=== PATIENT | male | born 1970 | race Two or more races ===

== ENCOUNTER 2020-09-23 21:36 | Inpatient (IN) | payer OTHER ==
[~2020-09-23] VITALS: Ht 177.8 cm; Wt 162.3 kg
[2020-09-23] MEDS: IV NORMAL SALINE 1000ML BAG 1,000 ML IV SCH (22:18)
[2020-09-23 22:23] LABS: BASO % 1 % (0-3); EOS # 0.3 x10^3/uL (0.0-0.7); EOS % 7 % (0-3); HEMATOCRIT 45.2 % (39.0-53.0); HEMOGLOBIN 15.7 g/dL (13.0-17.5); LYMPH # 1.4 x10^3/uL (1.0-4.8); LYMPH % 28 % (24-48); MEAN CORPUSCULAR HEMOGLOBIN 32 pg (25-35); MEAN CORPUSCULAR HGB CONC 35 g/dL (31-37); MEAN CORPUSCULAR VOLUME 91 fL (79-100); MONO # 0.6 x10^3/uL (0.0-1.1); MONO % 12 % (0-9); NEUT # 2.6 x10^3/uL (1.8-7.7); NEUT % 53 % (31-73); PLATELET COUNT 88 x10^3/uL (140-400); RED BLOOD COUNT 4.96 x10^6/uL (4.30-5.70); RED CELL DISTRIBUTION WIDTH 15.3 % (11.5-14.5)
[2020-09-23] MEDS ORDERED: PANTOPRAZOLE IV PUSH 40 MG VIAL. IVP ONE (22:30)
[2020-09-23] MEDS ORDERED: MORPHINE SULFATE 4 MG/ML VIAL. IV ONE (22:30)
[2020-09-23] MEDS ORDERED: cefTRIAXone IV Push 1 GM VIAL. IVP ONE (22:30)
[2020-09-23 22:31] LABS: PROTHROMBIN TIME PATIENT 16.7 SEC (11.7-14.0)
[2020-09-23 22:36] LABS: CALCIUM 9.8 mg/dL (8.5-10.1); CREATININE 1.1 mg/dL (0.7-1.3); GFR 71.4; POTASSIUM 3.7 mmol/L (3.5-5.1)
[2020-09-23 22:42] LABS: ALBUMIN 3.6 g/dL (3.4-5.0); ALBUMIN/GLOBULIN RATIO 0.8 (1.0-1.7); DIRECT BILIRUBIN 0.4 mg/dL (0.0-0.2); TOTAL BILIRUBIN 1.7 mg/dL (0.2-1.0); TOTAL PROTEIN 8.3 g/dL (6.4-8.2)
[2020-09-23] MEDS ORDERED: CONTRAST GIVEN. MC PRN (22:45)
[2020-09-23] MEDS: OCTREOTIDE 500 MCG in IV NORMAL SALINE 100ML 100 ML IV PRN (22:47)
--- NOTE | 2020-09-23 22:48 | RAD ---
XR CHEST 1V Clinical History: Reason: CHEST PAIN / Spl. Instructions: / History: Technique: AP view of the chest was obtained at 09/23/2020 10:29 PM. Comparison: None. Findings: The cardiomediastinal silhouette is normal. The pulmonary vasculature is normal. There is low lung vo lumes causing crowding of vasculature. There is subtle reticular nodular opacities in the lungs. Impression: Subtle reticulonodular opacities could be atypical pneumonia. Electronically signed by: Emmett Hernandez III, MD (09/23/2020 10:45 PM) [facility]
[2020-09-23] MEDS ORDERED: IOHEXOL 300 MG/ML 100ML VIAL. IV ONE (23:00)
[2020-09-23] MEDS ORDERED: VANCOMYCIN 2 GM in IV NORMAL SALINE 500ML BAG 500 ML IV ONE (23:00)
--- NOTE | 2020-09-23 23:45 | RAD ---
CT chest, abdomen and pelvis with contrast: Reason for examination: Abdominal pain. History of varices. Recent surgery. Helical images were obtained through the chest, abdomen and pelvis with intravenous administration of 75 cc Omnipaque 300. Reconstruction was performed in sagittal and coronal planes. Exposure: One or more of the following individualized dose reduction techniques were utilized for thi s examination: 1. Automated exposure control 2. Adjustment of the mA and/or kV according to patient size 3. Use of iterative reconstruction technique. No abnormality seen at the thyroid gland. The trachea and mainstem bronchi show no intraluminal lesio ns. There is abnormal soft tissue thickening around the distal esophagus which may reflect esophageal varices. This appears to extend from the level of the lennox into the upper abdomen. The thoracic ao rta is normal in course and caliber with no aneurysm or dissection. The heart size is normal with no pericardial effusion. There is no evidence of pulmonary embolus. There appears to be some atelectasis or mild infiltrate posteriorly at the costophrenic angles bilaterally. No pleural effusions are seen . No acute bony abnormalities are seen. There is bilateral gynecomastia. In the abdomen, the liver appears homogeneous. The spleen appears be enlarged at 18.6 cm without a fo dacia lesion seen. Gallbladder shows no cholelithiasis. No abnormality seen at the pancreas. There are calcified varices present portal vein appears to be patent. The abdominal aorta and inferior vena cav a show no acute abnormalities. No abnormality seen at the appendix. The colon shows no diverticulosis , diverticulitis or colitis. The small intestinal tract is not distended or thickened and shows no ob struction. Gastric wall is not thickened and no gastric obstruction is seen. No abnormality seen at t he duodenum. The kidneys show no renal masses, renal calculi, hydronephrosis or evidence of obstructi ve uropathy. No abnormality seen at the bladder, prostate gland or seminal vesicles. No free fluid or free air see n in the abdomen or pelvis. There is severe degenerative disc disease at the L5-S1 disc level. No acu te bony abnormalities are seen in the lumbar spine or pelvis. IMPRESSION: Abnormal soft tissue density around the distal esophagus probably reflecting esophageal varices. Atelectasis and/or infiltrates bilaterally at the lung bases posteriorly. Bilateral gynecomastia. Splenomegaly with the spleen measuring 18.6 cm in greatest dimension. Gastric varices. Electronically signed by: Marily Carrillo MD (09/23/2020 11:43 PM) [facility]
[2020-09-24] VITALS (7 sets, daily range): BP systolic 109–140; BP diastolic 70–85
[2020-09-24 00:01] LABS: INFLUENZA A PATIENT NEGATIVE (NEGATIVE); INFLUENZA B PATIENT NEGATIVE (NEGATIVE)
[2020-09-24] MEDS: IV NORMAL SALINE 1000ML BAG 1,000 ML IV SCH ×2 (00:09→00:30)
--- NOTE | 2020-09-24 00:35 | PHYS DOC ---
Past Medical History Past Medical History: Cancer, Hypertension, Hepatitis Additional Past Medical Histor: CIRRHOSIS, ESPHAGEAL VARICES, HISTORY OF HEP C Past Surgical History: Other Additional Past Surgical Histo: ESPHAGEAL BANDS ON Monday09/19/20 [place] Smoking Status: Never Smoker Alcohol Use: None Additional Information: USED TO DRINK Adult General Chief Complaint Chief Complaint: CHEST PAIN HPI HPI Patient is a 49 year old male presenting to the emergency department new onset of chest pain. 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 Patient states that approximate 30 minutes prior to arrival he started having crushing left-sided substernal chest pain and pressure which radiated into the left neck and the left upper extremity. Noted pain and tingling in the left upper extremity. Patient is stable enough that he thinks that he has been spitting up a small amount of blood over the last hour. Currently denies any fever, chills, nausea, vomiting. Denies any dizziness or lightheadedness. No diarrhea. Review of Systems Review of Systems Constitutional: Denies fever or chills [] Eyes: Denies change in visual acuity, redness, or eye pain [] HENT: Denies nasal congestion or sore throat [] Respiratory: Denies cough or shortness of breath [] Cardiovascular: No additional information not addressed in HPI [] GI: Denies abdominal pain, nausea, vomiting, bloody stools or diarrhea [] : Denies dysuria or hematuria [] Musculoskeletal: Denies back pain or joint pain [] Integument: Denies rash or skin lesions [] Neurologic: Denies headache, focal weakness or sensory changes [] Endocrine: Denies polyuria or polydipsia [] All other systems were reviewed and found to be within normal limits, except as documented in this note. Current Medications Current Medications Current Medications Medications (Trade) Dose Ordered Sig/Gina Start Time Stop Time Status Last Admin Dose Admin Ceftriaxone Sodium (Rocephin) 1 gm 1X ONCE 09/23/20 22:30 09/23/20 22:31 DC 09/23/20 22:30 1 GM Info (CONTRAST GIVEN -- Rx MONITORING) 1 each PRN DAILY PRN 09/23/20 22:45 09/25/20 22:44 Iohexol (Omnipaque 300 Mg/ml) 75 ml 1X ONCE 09/23/20 23:00 09/23/20 23:01 DC 09/23/20 23:12 75 ML Morphine Sulfate (Morphine Sulfate) 4 mg PRN Q2HR PRN 09/24/20 01:00 09/25/20 00:59 09/24/20 04:58 4 MG Octreotide Acetate 500 mcg/ Sodium Chloride 101 ml @ 0 mls/hr CONT PRN 09/23/20 22:00 09/23/20 22:47 5 MLS/HR Ondansetron HCl (Zofran) 4 mg PRN Q8HRS PRN 09/24/20 01:00 09/25/20 00:59 09/24/20 05:04 4 MG Pantoprazole Sodium (PROTONIX VIAL for IV PUSH) 80 mg 1X ONCE 09/23/20 22:30 09/23/20 22:31 DC 09/23/20 22:24 80 MG Sodium Chloride 1,000 ml @ 1,000 mls/hr Q1H 09/23/20 22:30 09/24/20 00:41 DC 09/24/20 00:09 1,000 MLS/HR Vancomycin HCl (Vanco Per Pharmacy) 1 each PRN DAILY PRN 09/23/20 22:00 09/24/20 02:19 1 EACH Vancomycin HCl 2 gm/Sodium Chloride 500 ml @ 250 mls/hr 1X ONCE 09/23/20 23:00 09/24/20 00:59 DC 09/23/20 22:41 250 MLS/HR Allergies Allergies Allergies Coded Allergies Type Severity Reaction Last Updated Verified ibuprofen Allergy Intermediate 09/23/20 Yes ketorolac Allergy Intermediate 09/23/20 Yes Physical Exam Physical Exam Constitutional: Well developed, well nourished, no acute distress, non-toxic appearance. [] HENT: Normocephalic, atraumatic, bilateral external ears normal, oropharynx moist, no oral exudates, nose normal. [] Eyes: PERRLA, EOMI, conjunctiva normal, no discharge. [] Neck: Normal range of motion, no tenderness, supple, no stridor. [] Cardiovascular:Heart rate regular rhythm, no murmur [] Lungs & Thorax: Bilateral breath sounds clear to auscultation [] Abdomen: Bowel sounds normal, soft, no tenderness, no masses, no pulsatile masses. [] Skin: Warm, dry, no erythema, no rash. [] Back: No tenderness, no CVA tenderness. [] Extremities: No tenderness, no cyanosis, no clubbing, ROM intact, no edema. [] Neurologic: Alert and oriented X 3, normal motor function, normal sensory function, no focal deficits noted. [] Psychologic: Affect normal, judgement normal, mood normal. [] Current Patient Data Vital Signs Vital Signs Date Time Temp Pulse Resp B/P (MAP) Pulse Ox O2 Delivery O2 Flow Rate FiO2 09/24/20 01:19 78 20 113/70 (84) 94 Room Air 09/23/20 23:30 2.0 09/23/20 21:36 97.8 97.8 Lab Values Laboratory Tests Test 09/23/20 21:44 09/23/20 22:10 09/23/20 23:38 White Blood Count 5.0 x10^3/uL (4.0-11.0) Red Blood Count 4.96 x10^6/uL (4.30-5.70) Hemoglobin 15.7 g/dL (13.0-17.5) Hematocrit 45.2 % (39.0-53.0) Mean Corpuscular Volume 91 fL (79-100) Mean Corpuscular Hemoglobin 32 pg (25-35) Mean Corpuscular Hemoglobin Concent 35 g/dL (31-37) Red Cell Distribution Width 15.3 % (11.5-14.5) H Platelet Count 88 x10^3/uL (140-400) L Neutrophils (%) (Auto) 53 % (31-73) Lymphocytes (%) (Auto) 28 % (24-48) Monocytes (%) (Auto) 12 % (0-9) H Eosinophils (%) (Auto) 7 % (0-3) H Basophils (%) (Auto) 1 % (0-3) Neutrophils # (Auto) 2.6 x10^3/uL (1.8-7.7) Lymphocytes # (Auto) 1.4 x10^3/uL (1.0-4.8) Monocytes # (Auto) 0.6 x10^3/uL (0.0-1.1) Eosinophils # (Auto) 0.3 x10^3/uL (0.0-0.7) Basophils # (Auto) 0.0 x10^3/uL (0.0-0.2) Prothrombin Time 16.7 SEC (11.7-14.0) H Prothrombin Time INR 1.4 (0.8-1.1) H Activated Partial Thromboplast Time 36 SEC (24-38) Sodium Level 140 mmol/L (136-145) Potassium Level 3.7 mmol/L (3.5-5.1) Chloride Level 104 mmol/L (98-107) Carbon Dioxide Level 26 mmol/L (21-32) Anion Gap 10 (6-14) Blood Urea Nitrogen 8 mg/dL (8-26) Creatinine 1.1 mg/dL (0.7-1.3) Estimated GFR (Cockcroft-Gault) 71.4 BUN/Creatinine Ratio 7 (6-20) Glucose Level 106 mg/dL (70-99) H Lactic Acid Level 1.4 mmol/L (0.4-2.0) Calcium Level 9.8 mg/dL (8.5-10.1) Total Bilirubin 1.7 mg/dL (0.2-1.0) H Direct Bilirubin 0.4 mg/dL (0.0-0.2) H Aspartate Amino Transferase (AST) 32 U/L (15-37) Alanine Aminotransferase (ALT) 27 U/L (16-63) Alkaline Phosphatase 122 U/L (46-116) H Creatine Kinase 177 U/L (39-308) Troponin I Quantitative < 0.017 ng/mL (0.000-0.055) Total Protein 8.3 g/dL (6.4-8.2) H Albumin 3.6 g/dL (3.4-5.0) Albumin/Globulin Ratio 0.8 (1.0-1.7) L Amylase Level 62 U/L (25-115) Lipase 166 U/L (73-393) Procalcitonin 11.70 ng/mL (0.00-0.10) H Ammonia 106 mcmol/L (11-34) H Influenza Type A Antigen Negative (NEGATIVE) Influenza Type B Antigen Negative (NEGATIVE) Laboratory Tests 09/23/20 21:44 Laboratory Tests 09/23/20 21:44 EKG EKG [] Radiology/Procedures Radiology/Procedures [] Course & Med Decision Making Course & Med Decision Making Pertinent Labs and Imaging studies reviewed. (See chart for details) 49M presenting the emergency department acutely tachycardic with left-sided chest pain with a history of colic cirrhosis with varices which raises concern for a number of critical conditions including acute coronary syndrome, sepsis or acute upper GI bleed. Care initiated immediately with 2 large-bore IVs and IV fluids initiated. Patient also started on IV Protonix and octreotide to prevent any variceal bleeding given broad-spectrum antibiotics. EKG on arrival did not show evidence of acute ST elevation IA however patient did receive 325 aspirin and 8 mg of nitroglycerin before arriving. Because of patient's history of significant intra-abdominal conditions of all initiate CT scan of chest abdomen pelvis to make sure there is no evidence of esophageal perforation or severe upper GI bleed Dragon Disclaimer Dragon Disclaimer This electronic medical record was generated, in whole or in part, using a voice recognition dictation system. Departure Departure Impression: Primary Impression: Chest pain Additional Impressions: Cirrhosis Esophageal varices Disposition: ADMITTED INPT THIS HOSP Condition: GOOD Referrals: NO PCP (PCP) Problem Qualifiers FRANDY BOWDEN MD Sep 24, 2020 00:35
[2020-09-24] MEDS: VANCOMYCIN PER PHARMACY MC PRN (02:19)
--- NOTE | 2020-09-24 02:20 | NUR ---
Pharmacy Vancomycin Dosing Note S:Consulted to monitor and dose vancomycin started 09/23/20. O:KAYDEN HENSON is a 49 year old M with Empiric . Height: 5 feet, 10 inches Weight: 159.3 kg [place] Body Weight: 73.00 Adjusted Body Weight: 107.52 Dosing Weight: Actual Other Antibiotics: LABS: Last BUN: 8 Last Creatinine: 1.1 Creatinine Clearance: 125 mL/min Last WBC: 5 Last Procalcitonin: 11.7 Tmax (past 24 hours): Microbiology: I/O: Drug Levels: Last level: on at Last dose given 09/23/20 at 2300 Vancomycin Dosing: Loading Dose: 2000 mg x1 Dosing Weight: Actual Target Trough: 15-20 A: Based on: WT AND CRCL P: 1. Begin Vancomycin 1500 mg IV q8h 2. Follow up Trough level on 09/24/20 at 2230 3. Pharmacy will continue to monitor, follow and adjust therapy as needed. PATSY MACKAY RPH, 09/24/20220 Signed: 09/24/20 at 220 by PATSY MACKAY RPH PHA
[2020-09-24] MEDS: MORPHINE SULFATE 4 MG/ML VIAL. IV PRN ×5 (02:34→20:05)
[2020-09-24] MEDS ORDERED: OMEP40CA7 PO (03:28)
[2020-09-24] MEDS ORDERED: FURO20TA3 PO (03:28)
[2020-09-24] MEDS ORDERED: ISOS30TA68 PO (03:28)
[2020-09-24] MEDS ORDERED: CALC300T5 PO (03:28)
[2020-09-24] MEDS ORDERED: LACT20SO PO (03:28)
--- NOTE | 2020-09-24 04:29 | NUR ---
The patient, KAYDEN HENSON, 49 y/o, M admitted by ANNIE FLORES III, DO, was given written information regarding hospital policies, unit procedures. Medications verified through [facility] paperwork. Patient has 2 guards present. Valuables were checked and long term information.
[2020-09-24] MEDS: ONDANSETRON PF 4 MG/2 ML VIAL. IV PRN ×2 (05:04→14:44)
--- NOTE | 2020-09-24 05:24 | EKG ---
[facility] [address] [place] [address] Test Date: 2020-09-23 Test Time: 21:41:50 Pat Name: KAYDEN HENSON Department: Room: Gender: M Budget Analyst: : 1970 Requested By: FRANDY BOWDEN Order Number: [id number] Reading MD: Measurements Intervals [place] Rate: 88 P: -26 TX: 146 QRS: -34 QRSD: 96 T: -18 QT: 360 QTc: 439 Interpretive Statements SINUS RHYTHM ABNORMAL LEFT AXIS DEVIATION R-S TRANSITION ZONE IN V LEADS DISPLACED TO THE LEFT LOW LIMB LEAD VOLTAGE INCOMPLETE RIGHT BUNDLE BRANCH BLOCK QRS(T) CONTOUR ABNORMALITY CONSISTENT WITH INFERIOR INFARCT AGE UNDETERMINED ABNORMAL ECG RI6.02 No previous ECG available for comparison
--- NOTE | 2020-09-24 08:39 | PDOC1 ---
History and Physical Date of Service: DOS: DATE: 09/24/20 TIME: 08:32 Chief Complaint: Chief Complain: chest pain History of Present Illness: HPI: Patient is a 49-year-old male with past medical history of cirrhosis with ascites status post multiple paracentesis, hepatitis C that has been treated, multiple EGDs for his esophageal varices. Most recent EGD was done in [place] on 09/19/2020 and comes into the ED because of new onset of chest pain. Work-up in the ED did not show any elevated troponins or abnormal EKG changes. Patient states that the chest pain occurred 30 minutes prior to arrival on the left side substernal region and radiated to the left neck and left upper extremity. He also had pain in his upper abdominal area in a bandlike position. Endorses associated tingling in his left upper extremity and lower extremities. Patient also did endorse hemoptysis as well. Denies fevers, chills, dysuria or diarrhea or syncope. Past Medical/Surgical History: PMH/PSH: Past Medical History: Cancer, Hypertension, Hepatitis, CIRRHOSIS, ESPHAGEAL VARICES, HISTORY OF HEP C Past Surgical History: ESPHAGEAL BANDS ON Monday09/19/20 [place] Allergies: Allergies: Coded Allergies: ibuprofen (Verified Allergy, Intermediate, 09/23/20) ketorolac (Verified Allergy, Intermediate, 09/23/20) Family History: Family History: Reviewed with no relevant findings Social History: Social History: Smoking Status: Never Smoker Alcohol Use: None Additional Information: USED TO DRINK Current Medications: Current Medications Current Medications Sodium Chloride 1,000 ml @ 1,000 mls/hr Q1H IV Last administered on 09/24/20at 00:09; Start 09/23/20 at 22:30; Stop 09/24/20 at 00:41; Status DC Vancomycin HCl (Vanco Per Pharmacy) 1 each PRN DAILY PRN MC SEE COMMENTS Last administered on 09/24/20at 02:19; Start 09/23/20 at 22:00 Ceftriaxone Sodium (Rocephin) 1 gm 1X ONCE IVP Last administered on 09/23/20at 22:30; Start 09/23/20 at 22:30; Stop 09/23/20 at 22:31; Status DC Pantoprazole Sodium (PROTONIX VIAL for IV PUSH) 80 mg 1X ONCE IVP Last administered on 09/23/20at 22:24; Start 09/23/20 at 22:30; Stop 09/23/20 at 22:31; Status DC Octreotide Acetate 500 mcg/ Sodium Chloride 101 ml @ 0 mls/hr CONT PRN IV SEE I/O RECORD Last administered on 09/23/20at 22:47; Start 09/23/20 at 22:00 Morphine Sulfate (Morphine Sulfate) 4 mg 1X ONCE IV Last administered on 09/23/20at 22:21; Start 09/23/20 at 22:30; Stop 09/23/20 at 22:31; Status DC Vancomycin HCl 2 gm/Sodium Chloride 500 ml @ 250 mls/hr 1X ONCE IV Last administered on 09/23/20at 22:41; Start 09/23/20 at 23:00; Stop 09/24/20 at 00:59; Status DC Iohexol (Omnipaque 300 Mg/ml) 75 ml 1X ONCE IV Last administered on 09/23/20at 23:12; Start 09/23/20 at 23:00; Stop 09/23/20 at 23:01; Status DC Info (CONTRAST GIVEN -- Rx MONITORING) 1 each PRN DAILY PRN MC SEE COMMENTS; Start 09/23/20 at 22:45; Stop 09/25/20 at 22:44 Ondansetron HCl (Zofran) 4 mg PRN Q8HRS PRN IV NAUSEA/VOMITING 1ST CHOICE Last administered on 09/24/20at 05:04; Start 09/24/20 at 01:00; Stop 09/25/20 at 00:59 Morphine Sulfate (Morphine Sulfate) 4 mg PRN Q2HR PRN IV SEVERE PAIN 7-10 Last administered on 09/24/20at 04:58; Start 09/24/20 at 01:00; Stop 09/25/20 at 00:59 Vancomycin HCl 1.5 gm/Sodium Chloride 500 ml @ 250 mls/hr Q8H IV ; Start 09/24/20 at 07:00 Vancomycin HCl (Vancomycin Trough Level) 1 each 1X ONCE MC ; Start 09/24/20 at 22:30; Stop 09/24/20 at 22:31 Active Scripts Active Reported Tums (Calcium Carbonate) 300 Mg Tab.chew 500 Mg PO TIDAFTMEAL Omeprazole 40 Mg Capsule.dr 40 Mg PO DAILY Lactulose 20 Gm/30 Ml Solution 10 Gm PO BID Isosorbide Mononitrate Er (Isosorbide Mononitrate) 30 Mg Tab.er.24h 1 Tab PO DAILY Furosemide 20 Mg Tablet 20 Mg PO DAILY ROS: Review of Systems Review of System REVIEW OF SYSTEMS: GENERAL: Denies weakness SKIN: No bruising, hair changes or rashes. EYES: No blurred, double or loss of vision. NOSE AND THROAT: No history of nosebleeds, hoarseness or sore throat. HEART: No history of palpitations, chest pain or shortness of breath on exertion. LUNGS: Denies cough, hemoptysis, wheezing or shortness of breath. GASTROINTESTINAL: Denies changes in appetite, nausea, vomiting, diarrhea or constipation. GENITOURINARY: No history of frequency, urgency, hesitancy or nocturia. NEUROLOGIC: Denies history of numbness, tingling, or tremor. PSYCHIATRIC: No history of panic, anxiety or depression. ENDOCRINE: No history of heat or cold intolerance, polyuria or polydipsia. EXTREMITIES: Denies joint pain, pain on walking or stiffness. Physical Exam: Vital Signs: Vital Signs Date Time Temp Pulse Resp B/P (MAP) Pulse Ox O2 Delivery O2 Flow Rate FiO2 09/24/20 07:00 97.4 73 22 140/81 (100) 96 Room Air 97.4 09/23/20 23:30 2.0 Physcial Exam: GEN: No apparent distress. Alert and oriented HEENT: Normal cephalic, atraumatic, external auditory canals are patent EYES: Extraocular muscles are intact, pupil are equally round and reactive to light and accommodation MUSCULOSKELETAL: Well developed , well nourished, good range of motion ENDOCRINE: No thyromegaly was palpated LYMPHATICS: No cervical chain or axillary nodes were noted HEMATOPOIETIC: No bruising NECK: Supple, no JVD, no thyromegaly was noted LUNGS: Clear to auscultation in all lung restrepo without rhonchi or wheezing HEART: RRR, S!, S2 present. Peripheral pulses intact, no obvious murmurs noted ABDOMEN: Soft, nontender. Positive bowel sounds, no organomegaly, normal bowel sounds EXTREMITIES: Without clubbing, cyanosis, or edema. Pedal pulses intact. Negative Homans sign NEUROLOGIC: Normal speech and tone. A&O x 3, moves all extremities, no obvious focal deficits PSYCHIATRIC: Normal affect, normal mood. Stable SKIN: No ulcerations or rashes, good skin turgor, no jaundice VASCULAR: Good capillary refill, neurovascular bundle appears to be intact Labs: Labs: Laboratory Tests Test 09/23/20 21:44 09/23/20 22:10 09/23/20 23:38 White Blood Count 5.0 x10^3/uL (4.0-11.0) Red Blood Count 4.96 x10^6/uL (4.30-5.70) Hemoglobin 15.7 g/dL (13.0-17.5) Hematocrit 45.2 % (39.0-53.0) Mean Corpuscular Volume 91 fL (79-100) Mean Corpuscular Hemoglobin 32 pg (25-35) Mean Corpuscular Hemoglobin Concent 35 g/dL (31-37) Red Cell Distribution Width 15.3 % (11.5-14.5) Platelet Count 88 x10^3/uL (140-400) Neutrophils (%) (Auto) 53 % (31-73) Lymphocytes (%) (Auto) 28 % (24-48) Monocytes (%) (Auto) 12 % (0-9) Eosinophils (%) (Auto) 7 % (0-3) Basophils (%) (Auto) 1 % (0-3) Neutrophils # (Auto) 2.6 x10^3/uL (1.8-7.7) Lymphocytes # (Auto) 1.4 x10^3/uL (1.0-4.8) Monocytes # (Auto) 0.6 x10^3/uL (0.0-1.1) Eosinophils # (Auto) 0.3 x10^3/uL (0.0-0.7) Basophils # (Auto) 0.0 x10^3/uL (0.0-0.2) Prothrombin Time 16.7 SEC (11.7-14.0) Prothromb Time International Ratio 1.4 (0.8-1.1) Activated Partial Thromboplast Time 36 SEC (24-38) Sodium Level 140 mmol/L (136-145) Potassium Level 3.7 mmol/L (3.5-5.1) Chloride Level 104 mmol/L (98-107) Carbon Dioxide Level 26 mmol/L (21-32) Anion Gap 10 (6-14) Blood Urea Nitrogen 8 mg/dL (8-26) Creatinine 1.1 mg/dL (0.7-1.3) Estimated GFR (Cockcroft-Gault) 71.4 BUN/Creatinine Ratio 7 (6-20) Glucose Level 106 mg/dL (70-99) Lactic Acid Level 1.4 mmol/L (0.4-2.0) Calcium Level 9.8 mg/dL (8.5-10.1) Total Bilirubin 1.7 mg/dL (0.2-1.0) Direct Bilirubin 0.4 mg/dL (0.0-0.2) Aspartate Amino Transf (AST/SGOT) 32 U/L (15-37) Alanine Aminotransferase (ALT/SGPT) 27 U/L (16-63) Alkaline Phosphatase 122 U/L (46-116) Creatine Kinase 177 U/L (39-308) Troponin I Quantitative < 0.017 ng/mL (0.000-0.055) Total Protein 8.3 g/dL (6.4-8.2) Albumin 3.6 g/dL (3.4-5.0) Albumin/Globulin Ratio 0.8 (1.0-1.7) Amylase Level 62 U/L (25-115) Lipase 166 U/L (73-393) Procalcitonin 11.70 ng/mL (0.00-0.10) Ammonia 106 mcmol/L (11-34) Influenza Type A Antigen Negative (NEGATIVE) Influenza Type B Antigen Negative (NEGATIVE) Laboratory Tests Test 09/23/20 21:44 09/23/20 22:10 09/23/20 23:38 White Blood Count 5.0 x10^3/uL (4.0-11.0) Red Blood Count 4.96 x10^6/uL (4.30-5.70) Hemoglobin 15.7 g/dL (13.0-17.5) Hematocrit 45.2 % (39.0-53.0) Mean Corpuscular Volume 91 fL (79-100) Mean Corpuscular Hemoglobin 32 pg (25-35) Mean Corpuscular Hemoglobin Concent 35 g/dL (31-37) Red Cell Distribution Width 15.3 % (11.5-14.5) Platelet Count 88 x10^3/uL (140-400) Neutrophils (%) (Auto) 53 % (31-73) Lymphocytes (%) (Auto) 28 % (24-48) Monocytes (%) (Auto) 12 % (0-9) Eosinophils (%) (Auto) 7 % (0-3) Basophils (%) (Auto) 1 % (0-3) Neutrophils # (Auto) 2.6 x10^3/uL (1.8-7.7) Lymphocytes # (Auto) 1.4 x10^3/uL (1.0-4.8) Monocytes # (Auto) 0.6 x10^3/uL (0.0-1.1) Eosinophils # (Auto) 0.3 x10^3/uL (0.0-0.7) Basophils # (Auto) 0.0 x10^3/uL (0.0-0.2) Prothrombin Time 16.7 SEC (11.7-14.0) Prothromb Time International Ratio 1.4 (0.8-1.1) Activated Partial Thromboplast Time 36 SEC (24-38) Sodium Level 140 mmol/L (136-145) Potassium Level 3.7 mmol/L (3.5-5.1) Chloride Level 104 mmol/L (98-107) Carbon Dioxide Level 26 mmol/L (21-32) Anion Gap 10 (6-14) Blood Urea Nitrogen 8 mg/dL (8-26) Creatinine 1.1 mg/dL (0.7-1.3) Estimated GFR (Cockcroft-Gault) 71.4 BUN/Creatinine Ratio 7 (6-20) Glucose Level 106 mg/dL (70-99) Lactic Acid Level 1.4 mmol/L (0.4-2.0) Calcium Level 9.8 mg/dL (8.5-10.1) Total Bilirubin 1.7 mg/dL (0.2-1.0) Direct Bilirubin 0.4 mg/dL (0.0-0.2) Aspartate Amino Transf (AST/SGOT) 32 U/L (15-37) Alanine Aminotransferase (ALT/SGPT) 27 U/L (16-63) Alkaline Phosphatase 122 U/L (46-116) Creatine Kinase 177 U/L (39-308) Troponin I Quantitative < 0.017 ng/mL (0.000-0.055) Total Protein 8.3 g/dL (6.4-8.2) Albumin 3.6 g/dL (3.4-5.0) Albumin/Globulin Ratio 0.8 (1.0-1.7) Amylase Level 62 U/L (25-115) Lipase 166 U/L (73-393) Procalcitonin 11.70 ng/mL (0.00-0.10) Ammonia 106 mcmol/L (11-34) Influenza Type A Antigen Negative (NEGATIVE) Influenza Type B Antigen Negative (NEGATIVE) Images: Images CT ABD /PELVIS IMPRESSION: Abnormal soft tissue density around the distal esophagus probably reflecting esophageal varices. Atelectasis and/or infiltrates bilaterally at the lung bases posteriorly. Bilateral gynecomastia. Splenomegaly with the spleen measuring 18.6 cm in greatest dimension. Gastric varices. Assessment/Plan Assessment/Plan Chest pain, possible odynophagia History of cirrhosis with ascites, meld score of 13 Esophageal varices, status post recent banding 09/19/2020 in [place] Morbid obesity Thrombocytopenia Admit to medicine for further management Continue IV Protonix and octreotide GI consult SCD for DVT prophylaxis Protonix prophylaxis N.p.o. Full code Discussed with RN and SW Disposition pending inpatient management as above Surrogate decision maker is unknown Justifications for Admission Other Justification ROSEMARY LALA MD Sep 24, 2020 08:39
[2020-09-24] MEDS: VANCOMYCIN 1.5 GM in IV NORMAL SALINE 500ML BAG 500 ML IV SCH ×2 (08:41→15:00)
[2020-09-24] MEDS: PANTOPRAZOLE 40 MG TABLET.DR. PO SCH ×3 (11:33→22:09)
--- NOTE | 2020-09-24 11:48 | PDOC2 ---
GI CONSULT Date of Service: DATE: 09/24/20 TIME: 11:48 Reason For Consult: hemoptysis recent esophageal banding HPI: HPI: 49 y/o male from [facility]. Chest pain (central and left), shoulder pain, SOA, nausea, hemoptysis, spitting up red blood, painful swallowing since banding of esophageal varices in [place], [place] on 09/19/20. 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 Past paracentesis (last 1 year ago) and 24 previous banding procedures (a couple places in [place], [place], [place], at [facility], and now [place]). This pain is different. Some question of liver cancer in the past - thinks maybe diagnosed w/ biopsy and labs, but says the mass that was previously seen on imaging is gone now. Takes omeprazole QD and lactulose BID. Last vomited red blood this morning (guards saw). Doesn't check stools for blood - last stooled yesterday. Had a colonoscopy (not sure where or when) for rectal bleeding - doesn't recall specific diagnosis. PMH: PMH: HTN, BRENDA, DVT, GERD, cirrhosis paracentesis FH: Family History: No pertinent hx Social History: ALCOHOL: other (heavy in the past - none since 2017) ROS: GEN: Denies fevers, chills, sweats HEENT: Denies blurred vision, sore throat CV: +CP RESP: +SOA GI: Per HPI : Denies hematuria, dysuria ENDO: Denies weight changes NEURO: Denies confusion, dizziness MSK: Denies weakness, joint pain/swelling SKIN: Denies jaundice, pruritus Vitals: Vitals: Vital Signs Date Time Temp Pulse Resp B/P (MAP) Pulse Ox O2 Delivery O2 Flow Rate FiO2 09/24/20 10:32 97.8 70 22 138/72 (94) 96 Room Air 97.8 09/23/20 23:30 2.0 Labs: Labs: Laboratory Tests Test 09/23/20 21:44 09/23/20 22:10 09/23/20 23:38 White Blood Count 5.0 x10^3/uL (4.0-11.0) Red Blood Count 4.96 x10^6/uL (4.30-5.70) Hemoglobin 15.7 g/dL (13.0-17.5) Hematocrit 45.2 % (39.0-53.0) Mean Corpuscular Volume 91 fL (79-100) Mean Corpuscular Hemoglobin 32 pg (25-35) Mean Corpuscular Hemoglobin Concent 35 g/dL (31-37) Red Cell Distribution Width 15.3 % (11.5-14.5) Platelet Count 88 x10^3/uL (140-400) Neutrophils (%) (Auto) 53 % (31-73) Lymphocytes (%) (Auto) 28 % (24-48) Monocytes (%) (Auto) 12 % (0-9) Eosinophils (%) (Auto) 7 % (0-3) Basophils (%) (Auto) 1 % (0-3) Neutrophils # (Auto) 2.6 x10^3/uL (1.8-7.7) Lymphocytes # (Auto) 1.4 x10^3/uL (1.0-4.8) Monocytes # (Auto) 0.6 x10^3/uL (0.0-1.1) Eosinophils # (Auto) 0.3 x10^3/uL (0.0-0.7) Basophils # (Auto) 0.0 x10^3/uL (0.0-0.2) Prothrombin Time 16.7 SEC (11.7-14.0) Prothromb Time International Ratio 1.4 (0.8-1.1) Activated Partial Thromboplast Time 36 SEC (24-38) Sodium Level 140 mmol/L (136-145) Potassium Level 3.7 mmol/L (3.5-5.1) Chloride Level 104 mmol/L (98-107) Carbon Dioxide Level 26 mmol/L (21-32) Anion Gap 10 (6-14) Blood Urea Nitrogen 8 mg/dL (8-26) Creatinine 1.1 mg/dL (0.7-1.3) Estimated GFR (Cockcroft-Gault) 71.4 BUN/Creatinine Ratio 7 (6-20) Glucose Level 106 mg/dL (70-99) Lactic Acid Level 1.4 mmol/L (0.4-2.0) Calcium Level 9.8 mg/dL (8.5-10.1) Total Bilirubin 1.7 mg/dL (0.2-1.0) Direct Bilirubin 0.4 mg/dL (0.0-0.2) Aspartate Amino Transf (AST/SGOT) 32 U/L (15-37) Alanine Aminotransferase (ALT/SGPT) 27 U/L (16-63) Alkaline Phosphatase 122 U/L (46-116) Creatine Kinase 177 U/L (39-308) Troponin I Quantitative < 0.017 ng/mL (0.000-0.055) Total Protein 8.3 g/dL (6.4-8.2) Albumin 3.6 g/dL (3.4-5.0) Albumin/Globulin Ratio 0.8 (1.0-1.7) Amylase Level 62 U/L (25-115) Lipase 166 U/L (73-393) Procalcitonin 11.70 ng/mL (0.00-0.10) Ammonia 106 mcmol/L (11-34) Influenza Type A Antigen Negative (NEGATIVE) Influenza Type B Antigen Negative (NEGATIVE) Allergies: Coded Allergies: ibuprofen (Verified Allergy, Intermediate, 09/23/20) ketorolac (Verified Allergy, Intermediate, 09/23/20) Medications: Current Medications Medications (Trade) Dose Ordered Sig/Gina Route PRN Reason Start Time Stop Time Status Last Admin Dose Admin Sodium Chloride 1,000 ml @ 1,000 mls/hr Q1H IV 09/23/20 22:30 09/24/20 00:41 DC 09/24/20 00:09 Vancomycin HCl (Vanco Per Pharmacy) 1 each PRN DAILY PRN MC SEE COMMENTS 09/23/20 22:00 09/24/20 02:19 Ceftriaxone Sodium (Rocephin) 1 gm 1X ONCE IVP 09/23/20 22:30 09/23/20 22:31 DC 09/23/20 22:30 Pantoprazole Sodium (PROTONIX VIAL for IV PUSH) 80 mg 1X ONCE IVP 09/23/20 22:30 09/23/20 22:31 DC 09/23/20 22:24 Octreotide Acetate 500 mcg/ Sodium Chloride 101 ml @ 0 mls/hr CONT PRN IV SEE I/O RECORD 09/23/20 22:00 09/23/20 22:47 Morphine Sulfate (Morphine Sulfate) 4 mg 1X ONCE IV 09/23/20 22:30 09/23/20 22:31 DC 09/23/20 22:21 Vancomycin HCl 2 gm/Sodium Chloride 500 ml @ 250 mls/hr 1X ONCE IV 09/23/20 23:00 09/24/20 00:59 DC 09/23/20 22:41 Iohexol (Omnipaque 300 Mg/ml) 75 ml 1X ONCE IV 09/23/20 23:00 09/23/20 23:01 DC 09/23/20 23:12 Ondansetron HCl (Zofran) 4 mg PRN Q8HRS PRN IV NAUSEA/VOMITING 1ST CHOICE 09/24/20 01:00 09/25/20 00:59 09/24/20 05:04 Morphine Sulfate (Morphine Sulfate) 4 mg PRN Q2HR PRN IV SEVERE PAIN 7-10 09/24/20 01:00 09/25/20 00:59 09/24/20 08:31 Vancomycin HCl 1.5 gm/Sodium Chloride 500 ml @ 250 mls/hr Q8H IV 09/24/20 07:00 09/24/20 08:41 Pantoprazole Sodium (Protonix) 40 mg BID PO 09/24/20 11:30 09/24/20 11:33 Imaging: Imaging: CXR 09/23 Impression: Subtle reticulonodular opacities could be atypical pneumonia. CT A/P 09/23 IMPRESSION: Abnormal soft tissue density around the distal esophagus probably reflecting esophageal varices. Atelectasis and/or infiltrates bilaterally at the lung bases posteriorly. Bilateral gynecomastia. Splenomegaly with the spleen measuring 18.6 cm in greatest dimension. Gastric varices. PE: GEN: NAD HEENT: Atraumatic, PERRL LUNGS: CTAB HEART: RRR ABD: epigastric discomfort, soft, large, NABS EXTREMITY: No edema SKIN: No rashes, no jaundice NEURO/PSYCH: A & O 3 A/P: A/P: Chest and shoulder pain, odynophagia Cirrhosis - Hep C (reportedly treated), alcohol (sober since 2016) Recent variceal banding - 09/19 in [place] - on CT, esophageal and gastric varices Thrombocytopenia, mild coagulopathy, mildly elevated bili and Alk Phos, hyperammonemia, elevated procalcitonin CRC screen - had a colonoscopy at some point in the past Abnormal chest imaging -- Normal Hgb and BUN, stable vitals. D/w Dr. Miller - ask for records from EGD/banding in [place]. Continue NPO for now. Can recheck Hgb today. Will return to see later - ?continue octreotide, ?additional liver imaging - has had previous evaluations all over the [place]. GUDELIA LOZANO Sep 24, 2020 11:48
[2020-09-24 13:09] LABS: HEMATOCRIT 41.1 % (39.0-53.0); HEMOGLOBIN 14.3 g/dL (13.0-17.5)
--- NOTE | 2020-09-24 13:34 | NUR ---
Patient urinated approximately 10cc of blood tinged urine, patient stated it was hard to get that out & that it hurt to urinate.
[2020-09-24] MEDS: OCTREOTIDE 500 MCG in IV NORMAL SALINE 100ML 100 ML IV PRN (14:08)
[2020-09-24] MEDS: LACTULOSE 20 GM/30 ML SOLUTION. PO SCH ×3 (15:03→22:09)
--- NOTE | 2020-09-24 19:52 | NUR ---
Throughout the day patient still complaining of having trouble urinating, bladder scanned patient & >391cc in bladder. Dr. Abebe notified, order for andrew catheter obtained but when RN went into patient's room to place he wanted to try to sit on the toilet to urinate, assisted patient to restroom. Patient reported to LICENSED STAFF MFT that he went, andrew not placed at this time. Will continue to monitor for need of andrew catheter.
--- NOTE | 2020-09-24 19:56 | NUR ---
Patient vomited around 4 times during the day shift today & when this happens patient has pain, but then is constantly asking for ice chips, drinks, etc. Educated patient about taking it easy on intake since he is getting sick.
--- NOTE | 2020-09-24 21:33 | NUR ---
Pt tolerated a popsicle and ice chips without nausea or vomiting. Chicken broth and lemon port lions soda given. Pt reports one large normal BM and a large urine output on day shift that was not measured. Several iv fluid reassessments charted as not done in order to clean up MAR.
[2020-09-24 23:05] LABS: VANC TR 20.2 mcg/mL (10.0-20.0)
[2020-09-25] MEDS: VANCOMYCIN 1.5 GM in IV NORMAL SALINE 500ML BAG 500 ML IV SCH (00:09)
[2020-09-25] MEDS: MORPHINE SULFATE 4 MG/ML VIAL. IV PRN ×6 (00:16→23:10)
[2020-09-25] MEDS: VANCOMYCIN PER PHARMACY MC PRN (01:57)
--- NOTE | 2020-09-25 01:57 | NUR ---
Pharmacy Vancomycin Dosing Note S:Consulted to monitor and dose vancomycin started 09/23/20. O:KAYDEN HENSON is a 49 year old M with Empiric . Height: 5 feet, 10 inches Weight: 160.5 kg [place] Body Weight: 73.00 Adjusted Body Weight: 108.00 Dosing Weight: Actual Other Antibiotics: LABS: Last BUN: 8 Last Creatinine: 1.1 Creatinine Clearance: 125 mL/min Last WBC: 5 Last Procalcitonin: 11.7 Tmax (past 24 hours): Microbiology: I/O: Drug Levels: Last Trough level: 20.2 on 09/24/20 at 2230 Last dose given 09/23/20 at 2300 Vancomycin Dosing: Loading Dose: 2000 mg x1 Dosing Weight: Actual Target Trough: 10-20 A: Based on: TROUGH P: 1. Begin Vancomycin 1500 mg IV q12h 2. Follow up Trough level on 09/26/20 at 2330 3. Pharmacy will continue to monitor, follow and adjust therapy as needed. PATSY MACKAY RPH, 09/25/20 0157 Signed: 09/25/20 at 156 by PATSY MACKAY RPH PHA
[2020-09-25 02:50] VITALS: BP 135/82
--- NOTE | 2020-09-25 03:01 | NUR ---
At 2230 on 09/24 patient had 200cc of clear emesis with purple food coloring from his popsicle. Will continue to monitor. Pt states that he "peed and peed and peed a lot" when he went to the toilet earlier on day shift but was not measured by urinal or hat.
[2020-09-25 07:00] VITALS: BP 110/61
[2020-09-25 07:39] LABS: BASO % 1 % (0-3); EOS # 0.3 x10^3/uL (0.0-0.7); EOS % 9 % (0-3); HEMATOCRIT 40.1 % (39.0-53.0); HEMOGLOBIN 13.7 g/dL (13.0-17.5); LYMPH % 31 % (24-48); MEAN CORPUSCULAR HEMOGLOBIN 32 pg (25-35); MEAN CORPUSCULAR HGB CONC 34 g/dL (31-37); MEAN CORPUSCULAR VOLUME 92 fL (79-100); MONO # 0.3 x10^3/uL (0.0-1.1); MONO % 11 % (0-9); NEUT # 1.5 x10^3/uL (1.8-7.7); NEUT % 48 % (31-73); PLATELET COUNT 66 x10^3/uL (140-400); RED BLOOD COUNT 4.36 x10^6/uL (4.30-5.70); RED CELL DISTRIBUTION WIDTH 15.3 % (11.5-14.5); WHITE BLOOD COUNT 3.1 x10^3/uL (4.0-11.0)
[2020-09-25 07:56] LABS: CALCIUM 8.3 mg/dL (8.5-10.1); CREATININE 0.9 mg/dL (0.7-1.3); GFR 90.1; POTASSIUM 3.4 mmol/L (3.5-5.1)
[2020-09-25] MEDS: PANTOPRAZOLE 40 MG TABLET.DR. PO SCH ×2 (08:54→21:03)
[2020-09-25] MEDS: LACTULOSE 20 GM/30 ML SOLUTION. PO SCH ×2 (08:54→21:00)
--- NOTE | 2020-09-25 10:41 | PDOC ---
Date of Service: DATE: 09/25/20 TIME: 10:33 Subjective: Subjective: Feels better. Tolerated clears this morning. Less pain - now pain in chest and throat is not related to eating. Wants ice cream. Objective: Objective: No records received from [place]. D/w nurse - vomited some red jello and red popsicle yesterday. Tolerating clears today and wants to eat more. Vital Signs: Vital Signs Date Time Temp Pulse Resp B/P (MAP) Pulse Ox O2 Delivery O2 Flow Rate FiO2 09/25/20 07:00 97.8 65 18 110/61 (77) 96 Room Air 97.8 09/25/20 05:50 2.0 Labs: Laboratory Tests Test 09/24/20 12:37 09/24/20 22:30 09/25/20 07:10 Hemoglobin 14.3 g/dL 13.7 g/dL Hematocrit 41.1 % 40.1 % Mean Corpuscular Hemoglobin Concent 35 g/dL 34 g/dL Hepatitis C IgG Antibody Reactive HIV (1&2) Antibody Screen Nonreactive Vancomycin Level Trough 20.2 mcg/mL Vancomycin Last Dose Date 09/24/20 Vancomycin Last Dose Time 1500 White Blood Count 3.1 x10^3/uL Red Blood Count 4.36 x10^6/uL Mean Corpuscular Volume 92 fL Mean Corpuscular Hemoglobin 32 pg Red Cell Distribution Width 15.3 % Platelet Count 66 x10^3/uL Neutrophils (%) (Auto) 48 % Lymphocytes (%) (Auto) 31 % Monocytes (%) (Auto) 11 % Eosinophils (%) (Auto) 9 % Basophils (%) (Auto) 1 % Neutrophils # (Auto) 1.5 x10^3/uL Lymphocytes # (Auto) 1.0 x10^3/uL Monocytes # (Auto) 0.3 x10^3/uL Eosinophils # (Auto) 0.3 x10^3/uL Basophils # (Auto) 0.0 x10^3/uL Sodium Level 138 mmol/L Potassium Level 3.4 mmol/L Chloride Level 104 mmol/L Carbon Dioxide Level 26 mmol/L Anion Gap 8 Blood Urea Nitrogen 7 mg/dL Creatinine 0.9 mg/dL Estimated GFR (Cockcroft-Gault) 90.1 Glucose Level 129 mg/dL Calcium Level 8.3 mg/dL PE: GEN: NAD - guards present LUNGS: CTAB HEART: RRR ABD: large, non-tender NEURO/PSYCH: A & O 3 A/P: Chest and shoulder pain, odynophagia - better Hematemesis - resolved Cirrhosis, recent variceal banding -- Tolerating clears, Hgb still normal. Try advancing diet. Stop octreotide. Continue PPI. Justicifation of Admission Dx: Justifications for Admission: Justification of Admission Dx: Yes GUDELIA LOZANO Sep 25, 2020 10:41
[2020-09-25 10:44] VITALS: BP 165/52
--- NOTE | 2020-09-25 11:36 | PDOC ---
[employer] PROGRESS NOTE Date of Service DOS: DATE: 09/25/20 TIME: 11:33 Chief Complaint Chief Complaint Chest pain History of Present Illness History of Present Illness 09/25/2020 -Patient seen and examined -CADEN RN -Chart reviewed Vitals/I&O Vitals/I&O: Vital Signs Date Time Temp Pulse Resp B/P (MAP) Pulse Ox O2 Delivery O2 Flow Rate FiO2 09/25/20 10:44 97.9 61 18 165/52 (89) 96 Room Air 97.9 09/25/20 05:50 2.0 I & O 09/24/20 09/24/20 09/25/20 15:00 23:00 07:00 Intake Total 0 ml 420 ml 550 ml Output Total 200 ml 400 ml 250 ml Balance -200 ml 20 ml 300 ml Physical Exam General: Alert, Oriented X3, Cooperative Heart: Regular rate, No murmurs Lungs: Clear Abdomen: Normal bowel sounds, Other Extremities: No clubbing, No cyanosis, No edema, Normal pulses Skin: No rashes, No breakdown, No significant lesion Labs Labs: Laboratory Tests Test 09/24/20 12:37 09/24/20 22:30 09/25/20 07:10 Hemoglobin 14.3 g/dL (13.0-17.5) 13.7 g/dL (13.0-17.5) Hematocrit 41.1 % (39.0-53.0) 40.1 % (39.0-53.0) Mean Corpuscular Hemoglobin Concent 35 g/dL (31-37) 34 g/dL (31-37) Hepatitis C IgG Antibody Reactive (Nonreactive) HIV (1&2) Antibody Screen Nonreactive (Nonreactive) Vancomycin Level Trough 20.2 mcg/mL (10.0-20.0) Vancomycin Last Dose Date 09/24/20 Vancomycin Last Dose Time 1500 White Blood Count 3.1 x10^3/uL (4.0-11.0) Red Blood Count 4.36 x10^6/uL (4.30-5.70) Mean Corpuscular Volume 92 fL (79-100) Mean Corpuscular Hemoglobin 32 pg (25-35) Red Cell Distribution Width 15.3 % (11.5-14.5) Platelet Count 66 x10^3/uL (140-400) Neutrophils (%) (Auto) 48 % (31-73) Lymphocytes (%) (Auto) 31 % (24-48) Monocytes (%) (Auto) 11 % (0-9) Eosinophils (%) (Auto) 9 % (0-3) Basophils (%) (Auto) 1 % (0-3) Neutrophils # (Auto) 1.5 x10^3/uL (1.8-7.7) Lymphocytes # (Auto) 1.0 x10^3/uL (1.0-4.8) Monocytes # (Auto) 0.3 x10^3/uL (0.0-1.1) Eosinophils # (Auto) 0.3 x10^3/uL (0.0-0.7) Basophils # (Auto) 0.0 x10^3/uL (0.0-0.2) Sodium Level 138 mmol/L (136-145) Potassium Level 3.4 mmol/L (3.5-5.1) Chloride Level 104 mmol/L (98-107) Carbon Dioxide Level 26 mmol/L (21-32) Anion Gap 8 (6-14) Blood Urea Nitrogen 7 mg/dL (8-26) Creatinine 0.9 mg/dL (0.7-1.3) Estimated GFR (Cockcroft-Gault) 90.1 Glucose Level 129 mg/dL (70-99) Calcium Level 8.3 mg/dL (8.5-10.1) Review of Systems Review of Systems: No clubbing, no ecchymosis Assessment and Plan Assessmemt and Plan Problems Medical Problems: (1) Chest pain Status: Acute (2) Cirrhosis Status: Acute (3) Esophageal varices Status: Acute 09/25/2020 A: Chest pain, possible odynophagia History of cirrhosis with ascites, meld score of 13 Esophageal varices, status post recent banding 09/19/2020 in [place] Morbid obesity Thrombocytopenia P: Continue IV octreotide Continue clear liquid diet Cardiac monitoring Appreciate GI & pulmonology input DVT prophylaxis Home meds Full code Comment Review of Relevant I have reviewed the following items kyleigh (where applicable) has been applied. Medications: Current Medications Medications (Trade) Dose Ordered Sig/Gina Route PRN Reason Start Time Stop Time Status Last Admin Dose Admin Vancomycin HCl (Vancomycin Trough Level) 1 each 1X ONCE MC 09/24/20 22:30 09/24/20 22:31 DC 09/24/20 22:30 Lactulose (Lactulose) 20 gm BID PO 09/24/20 13:00 09/25/20 08:54 Morphine Sulfate (Morphine Sulfate) 4 mg PRN Q2HR PRN IV SEVERE PAIN 7-10 09/25/20 05:15 09/25/20 10:27 Justifications for Admission Other Justification ANNIE FLORES III DO Sep 25, 2020 11:36
[2020-09-25] MEDS ORDERED: VANCOMYCIN 1.5 GM in IV NORMAL SALINE 500ML BAG 500 ML IV SCH (12:00)
[2020-09-25 14:53] VITALS: BP 134/70
[2020-09-25 19:31] VITALS: BP 115/68
[2020-09-25 22:13] VITALS: BP 114/58
[2020-09-25] MEDS: LIDO:MAALOX 1:1 20 ML SINGLE DOSE. PO PRN (23:28)
[2020-09-26 02:31] VITALS: BP 105/63
[2020-09-26] MEDS: MORPHINE SULFATE 4 MG/ML VIAL. IV PRN ×5 (04:28→23:22)
[2020-09-26 05:18] LABS: BASO % 1 % (0-3); EOS # 0.3 x10^3/uL (0.0-0.7); EOS % 10 % (0-3); HEMATOCRIT 36.3 % (39.0-53.0); HEMOGLOBIN 12.8 g/dL (13.0-17.5); LYMPH # 0.9 x10^3/uL (1.0-4.8); LYMPH % 32 % (24-48); MEAN CORPUSCULAR HEMOGLOBIN 32 pg (25-35); MEAN CORPUSCULAR HGB CONC 35 g/dL (31-37); MEAN CORPUSCULAR VOLUME 91 fL (79-100); MONO # 0.4 x10^3/uL (0.0-1.1); MONO % 13 % (0-9); NEUT # 1.3 x10^3/uL (1.8-7.7); NEUT % 44 % (31-73); PLATELET COUNT 55 x10^3/uL (140-400); RED BLOOD COUNT 3.98 x10^6/uL (4.30-5.70); RED CELL DISTRIBUTION WIDTH 15.2 % (11.5-14.5); WHITE BLOOD COUNT 2.9 x10^3/uL (4.0-11.0)
[2020-09-26 05:52] LABS: ALBUMIN 2.9 g/dL (3.4-5.0); ALBUMIN/GLOBULIN RATIO 0.8 (1.0-1.7); CALCIUM 8.4 mg/dL (8.5-10.1); CREATININE 0.8 mg/dL (0.7-1.3); GFR 103.2; POTASSIUM 3.2 mmol/L (3.5-5.1); TOTAL BILIRUBIN 1.5 mg/dL (0.2-1.0); TOTAL PROTEIN 6.6 g/dL (6.4-8.2)
[2020-09-26 07:00] VITALS: BP 137/73
[2020-09-26] MEDS ORDERED: ONDANSETRON PF 4 MG/2 ML VIAL. IVP PRN (08:30)
[2020-09-26] MEDS ORDERED: ACETAMINOPHEN 325 MG TABLET. PO PRN (08:30)
[2020-09-26] MEDS ORDERED: SENNOSIDES 8.6 MG TABLET PO PRN (08:30)
[2020-09-26] MEDS ORDERED: DOCUSATE SODIUM 100 MG CAPSULE. PO PRN (08:30)
[2020-09-26] MEDS ORDERED: DEXTROSE 50% 25 GM / 50ML DISP.SYRIN. IV PRN (08:30)
[2020-09-26] MEDS: LACTULOSE 20 GM/30 ML SOLUTION. PO SCH ×2 (08:31→21:00)
[2020-09-26] MEDS: PANTOPRAZOLE 40 MG TABLET.DR. PO SCH ×2 (08:31→21:30)
[2020-09-26 10:59] LABS: HCV ULTRA QUANT PCR HCV Not Detected IU/mL (.)
[2020-09-26 11:00] VITALS: BP 148/84
[2020-09-26] MEDS: THIAMINE 100 MG TABLET. PO SCH (13:05)
[2020-09-26] MEDS: LIDO:MAALOX 1:1 20 ML SINGLE DOSE. PO PRN (13:05)
[2020-09-26] MEDS: FOLIC ACID 1 MG TABLET. PO SCH (13:05)
[2020-09-26 15:00] VITALS: BP 133/76
[2020-09-26 19:45] VITALS: BP 118/76
[2020-09-26 23:00] VITALS: BP 125/71
[2020-09-27 03:35] VITALS: BP 156/93
[2020-09-27] MEDS: MORPHINE SULFATE 4 MG/ML VIAL. IV PRN ×3 (03:42→21:38)
[2020-09-27 04:42] LABS: BASO % 1 % (0-3); EOS # 0.2 x10^3/uL (0.0-0.7); EOS % 9 % (0-3); HEMATOCRIT 36.1 % (39.0-53.0); HEMOGLOBIN 12.6 g/dL (13.0-17.5); LYMPH % 37 % (24-48); MEAN CORPUSCULAR HEMOGLOBIN 32 pg (25-35); MEAN CORPUSCULAR HGB CONC 35 g/dL (31-37); MEAN CORPUSCULAR VOLUME 91 fL (79-100); MONO # 0.3 x10^3/uL (0.0-1.1); MONO % 12 % (0-9); NEUT # 1.1 x10^3/uL (1.8-7.7); NEUT % 41 % (31-73); PLATELET COUNT 54 x10^3/uL (140-400); RED BLOOD COUNT 3.97 x10^6/uL (4.30-5.70); RED CELL DISTRIBUTION WIDTH 15.2 % (11.5-14.5); WHITE BLOOD COUNT 2.7 x10^3/uL (4.0-11.0)
[2020-09-27 04:49] LABS: MAGNESIUM 2.1 mg/dL (1.8-2.4); PHOSPHORUS 3.6 mg/dL (2.6-4.7)
[2020-09-27 05:01] LABS: ALBUMIN/GLOBULIN RATIO 0.8 (1.0-1.7); CALCIUM 8.7 mg/dL (8.5-10.1); CREATININE 0.9 mg/dL (0.7-1.3); GFR 90.1; POTASSIUM 3.4 mmol/L (3.5-5.1); TOTAL BILIRUBIN 1.4 mg/dL (0.2-1.0); TOTAL PROTEIN 6.6 g/dL (6.4-8.2)
[2020-09-27 07:00] VITALS: BP 154/90
[2020-09-27] MEDS: FOLIC ACID 1 MG TABLET. PO SCH (09:10)
[2020-09-27] MEDS: PANTOPRAZOLE 40 MG TABLET.DR. PO SCH ×2 (09:10→20:17)
[2020-09-27] MEDS: LACTULOSE 20 GM/30 ML SOLUTION. PO SCH ×2 (09:11→20:15)
[2020-09-27 11:00] VITALS: BP 120/79
[2020-09-27] MEDS: THIAMINE 100 MG TABLET. PO SCH (12:34)
[2020-09-27] MEDS: oxyCODONE/APAP 10/325 1 TAB TABLET PO PRN ×2 (12:38→20:17)
--- NOTE | 2020-09-27 13:45 | PDOC ---
[employer] PROGRESS NOTE Date of Service DOS: DATE: 09/27/20 TIME: 13:41 Chief Complaint Chief Complaint Chest pain, possible odynophagia History of cirrhosis with ascites, meld score of 13 Esophageal varices, status post recent banding 09/19/2020 in [place] Morbid obesity Pancytopenia, likely due to liver disease and hepatitis Hepatitis C positive Severe protein malnutrition Hematology consult Pending PBS to be sent to pathology GI services have signed off Anticipate discharge within the next 24 hours after seen by hematology. History of Present Illness History of Present Illness 09/27/2020 No acute events overnight. Patient is tolerating diet but continues to still have pain with diet. No nausea or vomiting. 09/25/2020 -Patient seen and examined -CADEN RN -Chart reviewed Vitals/I&O Vitals/I&O: Vital Signs Date Time Temp Pulse Resp B/P (MAP) Pulse Ox O2 Delivery O2 Flow Rate FiO2 09/27/20 12:38 Room Air 09/27/20 11:00 97.8 69 18 120/79 (93) 94 97.8 I & O 09/26/20 09/26/20 09/27/20 15:00 23:00 07:00 Intake Total 575 ml 740 ml 120 ml Output Total 400 ml 350 ml Balance 575 ml 340 ml -230 ml Physical Exam General: Alert, Oriented X3, Cooperative Heart: Regular rate, No murmurs Lungs: Clear Abdomen: Normal bowel sounds, Other Extremities: No clubbing, No cyanosis, No edema, Normal pulses Skin: No rashes, No breakdown, No significant lesion Labs Labs: Laboratory Tests Test 09/27/20 04:10 White Blood Count 2.7 x10^3/uL (4.0-11.0) Red Blood Count 3.97 x10^6/uL (4.30-5.70) Hemoglobin 12.6 g/dL (13.0-17.5) Hematocrit 36.1 % (39.0-53.0) Mean Corpuscular Volume 91 fL (79-100) Mean Corpuscular Hemoglobin 32 pg (25-35) Mean Corpuscular Hemoglobin Concent 35 g/dL (31-37) Red Cell Distribution Width 15.2 % (11.5-14.5) Platelet Count 54 x10^3/uL (140-400) Neutrophils (%) (Auto) 41 % (31-73) Lymphocytes (%) (Auto) 37 % (24-48) Monocytes (%) (Auto) 12 % (0-9) Eosinophils (%) (Auto) 9 % (0-3) Basophils (%) (Auto) 1 % (0-3) Neutrophils # (Auto) 1.1 x10^3/uL (1.8-7.7) Lymphocytes # (Auto) 1.0 x10^3/uL (1.0-4.8) Monocytes # (Auto) 0.3 x10^3/uL (0.0-1.1) Eosinophils # (Auto) 0.2 x10^3/uL (0.0-0.7) Basophils # (Auto) 0.0 x10^3/uL (0.0-0.2) Sodium Level 140 mmol/L (136-145) Potassium Level 3.4 mmol/L (3.5-5.1) Chloride Level 105 mmol/L (98-107) Carbon Dioxide Level 25 mmol/L (21-32) Anion Gap 10 (6-14) Blood Urea Nitrogen 5 mg/dL (8-26) Creatinine 0.9 mg/dL (0.7-1.3) Estimated GFR (Cockcroft-Gault) 90.1 BUN/Creatinine Ratio 6 (6-20) Glucose Level 91 mg/dL (70-99) Calcium Level 8.7 mg/dL (8.5-10.1) Phosphorus Level 3.6 mg/dL (2.6-4.7) Magnesium Level 2.1 mg/dL (1.8-2.4) Total Bilirubin 1.4 mg/dL (0.2-1.0) Aspartate Amino Transf (AST/SGOT) 37 U/L (15-37) Alanine Aminotransferase (ALT/SGPT) 24 U/L (16-63) Alkaline Phosphatase 101 U/L (46-116) Total Protein 6.6 g/dL (6.4-8.2) Albumin 3.0 g/dL (3.4-5.0) Albumin/Globulin Ratio 0.8 (1.0-1.7) Assessment and Plan Assessmemt and Plan Problems Medical Problems: (1) Chest pain Status: Acute (2) Cirrhosis Status: Acute (3) Esophageal varices Status: Acute Comment Review of Relevant I have reviewed the following items kyleigh (where applicable) has been applied. Medications: Current Medications Medications (Trade) Dose Ordered Sig/Gina Route PRN Reason Start Time Stop Time Status Last Admin Dose Admin Oxycodone/ Acetaminophen (Percocet 10/325) 1 tab PRN Q6HRS PRN PO MODERATE PAIN, SEVERE PAIN 09/27/20 09:15 09/27/20 12:38 Justifications for Admission Other Justification ROSEMARY LALA MD Sep 27, 2020 13:45
[2020-09-27 15:00] VITALS: BP 131/75
--- NOTE | 2020-09-27 15:40 | NUR ---
Patient has tolerated eating meals without nausea or vomiting and makes request for additional snack throughout the day. Patient does however continually complains of abdominal pain and makes frequent request for pain medication.
--- NOTE | 2020-09-27 18:22 | NUR ---
Guards pressed call light to request someone come to bedside d/t patient "panting" and not responding to verbal cues. This RN, a 2nd RN and the WATER QUALITY TECHNICIAN entered room to find patient laying in bed with eyes rolled back, breathing heavy and not responding to verbal or tactile cues. It appeared that patient was having an absent seizure. It lasted approximately 1 minute while at bedside. Took set of vitals which were WNL glucose - 127, B/P 142/76, HR - 86, O2 Sat 94% on room air. Educated patient and guards on s/sx of seizures to watch for. Both verbalized understanding. Patient was A/O X 4 prior to leaving the bedside. Pgd and spoke to primary. Recvd new orders
--- NOTE | 2020-09-27 19:22 | NUR ---
Per Dr. Abebe, please wait to call neuro consult until AM of 09/28/20
[2020-09-27 19:50] VITALS: BP 129/70
[2020-09-27] MEDS: levETIRAcetam 500 MG TABLET PO SCH (20:17)
[2020-09-27 22:50] VITALS: BP 131/74
--- NOTE | 2020-09-28 00:45 | NUR ---
CALLED TO ROOM BY SUBWAY GUARD PT LAYING IN BED ON HIS BACK PT EYES ROLLED BACK IN HEAD, PT NOT RESPONDING TO VERBAL STIMULI OR CUES. PT BODY WAS STIFF. PT VSS WNL, BP 132/75, P-81, R-24, 95-RA, FS 118, DR POWELL NOTIFIED OF PT EVENT, NEW ORDERS RECEIVED, WILL CONT TO MONITOR PT SAFETY AND STATUS. 2 GUARDS AT BEDSIDE, CALL LIGHT IN PLACE. PMRN
[2020-09-28 00:50] VITALS: BP 132/75
[2020-09-28] MEDS ORDERED: levETIRAcetam 1,000 MG in IV DEXTROSE 5% 100ML 100 ML IV ONE (02:00)
--- NOTE | 2020-09-28 02:19 | NUR ---
RADIOLOGIST CALLED REGARDING CT HEAD RESULTS ARE NEGATIVE, WILL INFORM DR POWELL, WILL CONT TO MONITOR PT STATUS AND SAFETY. PMRN
[2020-09-28] MEDS: oxyCODONE/APAP 10/325 1 TAB TABLET PO PRN (02:28)
--- NOTE | 2020-09-28 02:43 | RAD ---
CT head without contrast PQRS statement: CT scans at this facility use dose reduction including either automated exposure cont rol, iterative reconstructions, and /or weight based radiation dosing via mA and kV modification when appropriate to reduce radiation dose to as low as reasonably achievable. HISTORY: Seizures. FINDINGS: No intracranial hemorrhage, mass, hydrocephalus, extra-axial fluid collections or infarctio n. Orbits, mastoids and bones are unremarkable. IMPRESSION: Normal exam. Electronically signed by: Joseluis Kwan MD (09/28/2020 2:18 AM) [facility]
[2020-09-28 03:25] VITALS: BP_SYST 116; BP_SYST 122; BP_DIAS 53; BP_DIAS 73
[2020-09-28 04:54] LABS: ALBUMIN 3.1 g/dL (3.4-5.0); ALBUMIN/GLOBULIN RATIO 0.9 (1.0-1.7); CALCIUM 8.8 mg/dL (8.5-10.1); CREATININE 0.9 mg/dL (0.7-1.3); GFR 90.1; POTASSIUM 3.9 mmol/L (3.5-5.1); TOTAL BILIRUBIN 1.4 mg/dL (0.2-1.0); TOTAL PROTEIN 6.6 g/dL (6.4-8.2)
[2020-09-28 05:26] LABS: BASO % 1 % (0-3); EOS # 0.2 x10^3/uL (0.0-0.7); EOS % 9 % (0-3); HEMATOCRIT 36.3 % (39.0-53.0); HEMOGLOBIN 12.6 g/dL (13.0-17.5); LYMPH # 0.8 x10^3/uL (1.0-4.8); LYMPH % 37 % (24-48); MEAN CORPUSCULAR HEMOGLOBIN 32 pg (25-35); MEAN CORPUSCULAR HGB CONC 35 g/dL (31-37); MEAN CORPUSCULAR VOLUME 92 fL (79-100); MONO # 0.3 x10^3/uL (0.0-1.1); MONO % 12 % (0-9); NEUT # 0.9 x10^3/uL (1.8-7.7); NEUT % 41 % (31-73); PLATELET COUNT 51 x10^3/uL (140-400); RED BLOOD COUNT 3.93 x10^6/uL (4.30-5.70); RED CELL DISTRIBUTION WIDTH 15.3 % (11.5-14.5); WHITE BLOOD COUNT 2.3 x10^3/uL (4.0-11.0)
[2020-09-28 07:00] VITALS: BP 118/52
--- NOTE | 2020-09-28 07:29 | PDOC2 ---
CONSULT Date of Consult Date of Consult DATE: 09/28/20 TIME: 07:20 Reason for Consult Reason for Consult: Pancytopenia Referring Physician Referring Physician: Dr. Abebe Identification/Chief Complaint Chief Complaint Bleeding esophageal varices Source Source: Caregiver, Chart review, Patient History of Present Illness Reason for Visit: Mr. Doyle is a 49-year-old male with hepatitis C, cirrhosis who has been admitted for evaluation and management of chest and epigastric pain. Patient is currently a resident of a correctional facility. Received a CT of the chest, abdomen and pelvis for evaluation of his pain. This did not show any etiology. CT did show gastric and esophageal varices, splenomegaly. The patient has known history of cirrhosis with history of variceal bleeding for which he has received banding in the past. He reports occasional hematemesis. He denies current alcohol use. Discussed with RN. She reports that he had a seizure-like episode yesterday. CT head was requested by Dr. Caraballo and does not show any bleeding. We are waiting further commendations from neurology at this point. Hematology consultation has been sought due to pancytopenia. Social History ALCOHOL: other (heavy in the past - none since 2017) Current Problem List Problem List Problems Medical Problems: (1) Chest pain Status: Acute (2) Cirrhosis Status: Acute (3) Esophageal varices Status: Acute Current Medications Current Medications Current Medications Sodium Chloride 1,000 ml @ 1,000 mls/hr Q1H IV Last administered on 09/24/20at 00:09; Start 09/23/20 at 22:30; Stop 09/24/20 at 00:41; Status DC Vancomycin HCl (Vanco Per Pharmacy) 1 each PRN DAILY PRN MC SEE COMMENTS Last administered on 09/25/20at 01:57; Start 09/23/20 at 22:00; Stop 09/25/20 at 12:48; Status DC Ceftriaxone Sodium (Rocephin) 1 gm 1X ONCE IVP Last administered on 09/23/20at 22:30; Start 09/23/20 at 22:30; Stop 09/23/20 at 22:31; Status DC Pantoprazole Sodium (PROTONIX VIAL for IV PUSH) 80 mg 1X ONCE IVP Last administered on 09/23/20at 22:24; Start 09/23/20 at 22:30; Stop 09/23/20 at 22:31; Status DC Octreotide Acetate 500 mcg/ Sodium Chloride 101 ml @ 0 mls/hr CONT PRN IV SEE I/O RECORD Last administered on 09/24/20at 14:08; Start 09/23/20 at 22:00; Stop 09/25/20 at 10:38; Status DC Morphine Sulfate (Morphine Sulfate) 4 mg 1X ONCE IV Last administered on 09/23/20at 22:21; Start 09/23/20 at 22:30; Stop 09/23/20 at 22:31; Status DC Vancomycin HCl 2 gm/Sodium Chloride 500 ml @ 250 mls/hr 1X ONCE IV Last administered on 09/23/20at 22:41; Start 09/23/20 at 23:00; Stop 09/24/20 at 00:59; Status DC Iohexol (Omnipaque 300 Mg/ml) 75 ml 1X ONCE IV Last administered on 09/23/20at 23:12; Start 09/23/20 at 23:00; Stop 09/23/20 at 23:01; Status DC Info (CONTRAST GIVEN -- Rx MONITORING) 1 each PRN DAILY PRN MC SEE COMMENTS; Start 09/23/20 at 22:45; Stop 09/25/20 at 22:44; Status DC Ondansetron HCl (Zofran) 4 mg PRN Q8HRS PRN IV NAUSEA/VOMITING 1ST CHOICE Last administered on 09/24/20at 14:44; Start 09/24/20 at 01:00; Stop 09/25/20 at 00:59; Status DC Morphine Sulfate (Morphine Sulfate) 4 mg PRN Q2HR PRN IV SEVERE PAIN 7-10 Last administered on 09/25/20at 00:16; Start 09/24/20 at 01:00; Stop 09/25/20 at 00:59; Status DC Vancomycin HCl 1.5 gm/Sodium Chloride 500 ml @ 250 mls/hr Q8H IV Last administered on 09/25/20at 00:09; Start 09/24/20 at 07:00; Stop 09/25/20 at 04:00; Status DC Vancomycin HCl (Vancomycin Trough Level) 1 each 1X ONCE MC Last administered on 09/24/20at 22:30; Start 09/24/20 at 22:30; Stop 09/25/20 at 12:46; Status DC Pantoprazole Sodium (Protonix) 40 mg BID PO Last administered on 09/27/20at 20:17; Start 09/24/20 at 11:30 Lactulose (Lactulose) 20 gm BID PO Last administered on 09/27/20at 09:11; Start 09/24/20 at 13:00 Vancomycin HCl 1.5 gm/Sodium Chloride 500 ml @ 250 mls/hr Q12H IV ; Start 09/25/20 at 12:00; Stop 09/25/20 at 12:46; Status DC Vancomycin HCl (Vancomycin Trough Level) 1 each 1X ONCE MC ; Start 09/26/20 at 23:30; Stop 09/25/20 at 12:46; Status DC Morphine Sulfate (Morphine Sulfate) 4 mg PRN Q2HR PRN IV SEVERE PAIN 7-10 Last administered on 09/27/20at 21:38; Start 09/25/20 at 05:15 Multi-Ingredient Mouthwash/Gargle (Gi Cocktail) 20 ml PRN QID PRN PO CHEST PAIN Last administered on 09/26/20at 13:05; Start 09/25/20 at 23:15 Sennosides (Senna) 17.2 mg PRN BID PRN PO CONSTIPATION; Start 09/26/20 at 08:30 Docusate Sodium (Colace) 100 mg PRN DAILY PRN PO HARD STOOLS; Start 09/26/20 at 08:30 Ondansetron HCl (Zofran) 4 mg PRN Q6HRS PRN IVP NAUSEA/VOMITING; Start 09/26/20 at 08:30 Dextrose (Dextrose 50%-Water Syringe) 12.5 gm PRN Q15MIN PRN IV SEE COMMENTS; Start 09/26/20 at 08:30 Acetaminophen (Tylenol) 650 mg PRN Q4HRS PRN PO TEMP OVER 100.4F OR MILD PAIN; Start 09/26/20 at 08:30 Thiamine Mononitrate (Vitamin B-1) 300 mg DAILY PO Last administered on 09/27/20at 12:34; Start 09/26/20 at 09:00 Folic Acid (Folic Acid) 1 mg DAILY PO Last administered on 09/27/20at 09:10; Start 09/26/20 at 09:00 Oxycodone/ Acetaminophen (Percocet 10/325) 1 tab PRN Q6HRS PRN PO MODERATE PAIN, SEVERE PAIN Last administered on 09/28/20at 02:28; Start 09/27/20 at 09:15 Levetiracetam (Keppra) 500 mg BID PO Last administered on 09/27/20at 20:17; Start 09/27/20 at 19:00 Levetiracetam 1000 mg/Dextrose 110 ml @ 440 mls/hr 1X ONCE IV Last administered on 09/28/20at 02:07; Start 09/28/20 at 02:00; Stop 09/28/20 at 02:14; Status DC Active Scripts Active Reported Tums (Calcium Carbonate) 300 Mg Tab.chew 500 Mg PO TIDAFTMEAL Omeprazole 40 Mg Capsule.dr 40 Mg PO DAILY Lactulose 20 Gm/30 Ml Solution 10 Gm PO BID Isosorbide Mononitrate Er (Isosorbide Mononitrate) 30 Mg Tab.er.24h 1 Tab PO DAILY Furosemide 20 Mg Tablet 20 Mg PO DAILY Allergies Allergies: Coded Allergies: ibuprofen (Verified Allergy, Intermediate, 09/23/20) ketorolac (Verified Allergy, Intermediate, 09/23/20) ROS General: YES: Fatigue, Malaise PSYCHOLOGICAL ROS: No: Hallucinations Eyes: No Eye Pain, No Itchy Eyes HEENT: No: Oral lesions ALLERGY AND IMMUNOLOGY: No: Nasal Congestion, Post Nasal Drip Hematological and Lymphatic: No: Brusing ENDOCRINE: No: Mood Swings Breast: No Nipple discharge Respiratory: No: Shortness of breath, SOB with excertion Cardiovascular: No Paroxysmal Noc. Dyspnea, No Edema Gastrointestinal: No Diarrhea, No Constipation Genitourinary: No Urgency Musculoskeletal: No Joint Swelling, No Muscle Pain Skin: No Mole Changes, No Mottling Physical Exam General: Alert, Cooperative HEENT: Atraumatic Lungs: Clear to auscultation Heart: Regular rate, Normal S1, Normal S2 Abdomen: Normal bowel sounds, Soft Extremities: No clubbing Skin: No rashes Neuro: Normal gait MUSCULOSKELETAL: No swelling Vitals VITALS Vital Signs Date Time Temp Pulse Resp B/P (MAP) Pulse Ox O2 Delivery O2 Flow Rate FiO2 09/28/20 03:25 97.5 71 18 116/73 (87) 96 Room Air 97.5 09/27/20 22:50 2.0 Labs Labs Laboratory Tests Test 09/27/20 04:10 09/27/20 18:20 09/28/20 00:47 2/1/21 04:10 White Blood Count 2.7 x10^3/uL (4.0-11.0) 2.3 x10^3/uL (4.0-11.0) Red Blood Count 3.97 x10^6/uL (4.30-5.70) 3.89 x10^6/uL (4.30-5.70) Hemoglobin 12.6 g/dL (13.0-17.5) 12.6 g/dL (13.0-17.5) Hematocrit 36.1 % (39.0-53.0) 36.3 % (39.0-53.0) Mean Corpuscular Volume 91 fL (79-100) 92 fL (79-100) Mean Corpuscular Hemoglobin 32 pg (25-35) 32 pg (25-35) Mean Corpuscular Hemoglobin Concent 35 g/dL (31-37) 35 g/dL (31-37) Red Cell Distribution Width 15.2 % (11.5-14.5) 15.3 % (11.5-14.5) Platelet Count 54 x10^3/uL (140-400) 51 x10^3/uL (140-400) Neutrophils (%) (Auto) 41 % (31-73) 41 % (31-73) Lymphocytes (%) (Auto) 37 % (24-48) 37 % (24-48) Monocytes (%) (Auto) 12 % (0-9) 12 % (0-9) Eosinophils (%) (Auto) 9 % (0-3) 9 % (0-3) Basophils (%) (Auto) 1 % (0-3) 1 % (0-3) Neutrophils # (Auto) 1.1 x10^3/uL (1.8-7.7) 0.9 x10^3/uL (1.8-7.7) Lymphocytes # (Auto) 1.0 x10^3/uL (1.0-4.8) 0.8 x10^3/uL (1.0-4.8) Monocytes # (Auto) 0.3 x10^3/uL (0.0-1.1) 0.3 x10^3/uL (0.0-1.1) Eosinophils # (Auto) 0.2 x10^3/uL (0.0-0.7) 0.2 x10^3/uL (0.0-0.7) Basophils # (Auto) 0.0 x10^3/uL (0.0-0.2) 0.0 x10^3/uL (0.0-0.2) Sodium Level 140 mmol/L (136-145) 139 mmol/L (136-145) Potassium Level 3.4 mmol/L (3.5-5.1) 3.9 mmol/L (3.5-5.1) Chloride Level 105 mmol/L (98-107) 104 mmol/L (98-107) Carbon Dioxide Level 25 mmol/L (21-32) 28 mmol/L (21-32) Anion Gap 10 (6-14) 7 (6-14) Blood Urea Nitrogen 5 mg/dL (8-26) 4 mg/dL (8-26) Creatinine 0.9 mg/dL (0.7-1.3) 0.9 mg/dL (0.7-1.3) Estimated GFR (Cockcroft-Gault) 90.1 90.1 BUN/Creatinine Ratio 6 (6-20) 4 (6-20) Glucose Level 91 mg/dL (70-99) 127 mg/dL (70-99) Calcium Level 8.7 mg/dL (8.5-10.1) 8.8 mg/dL (8.5-10.1) Phosphorus Level 3.6 mg/dL (2.6-4.7) Magnesium Level 2.1 mg/dL (1.8-2.4) Total Bilirubin 1.4 mg/dL (0.2-1.0) 1.4 mg/dL (0.2-1.0) Aspartate Amino Transf (AST/SGOT) 37 U/L (15-37) 49 U/L (15-37) Alanine Aminotransferase (ALT/SGPT) 24 U/L (16-63) 35 U/L (16-63) Alkaline Phosphatase 101 U/L (46-116) 133 U/L (46-116) Total Protein 6.6 g/dL (6.4-8.2) 6.6 g/dL (6.4-8.2) Albumin 3.0 g/dL (3.4-5.0) 3.1 g/dL (3.4-5.0) Albumin/Globulin Ratio 0.8 (1.0-1.7) 0.9 (1.0-1.7) Glucose (Fingerstick) 127 mg/dL (70-99) 118 mg/dL (70-99) Absolute Reticulocyte Count 0.074 x10^6/uL (0.020-0.120) Percent Reticulocyte Count 1.9 % (0.5-2.3) Immature Reticulocyte Fraction 0.45 (0.20-0.60) Iron Level 61 ug/dL (65-175) Total Iron Binding Capacity 330 ug/dL (250-450) Iron Saturation 18 % (15-34) Ferritin 34 ng/mL (26-388) Laboratory Tests Test 09/27/20 18:20 09/28/20 00:47 09/28/20 04:10 Glucose (Fingerstick) 127 mg/dL (70-99) 118 mg/dL (70-99) White Blood Count 2.3 x10^3/uL (4.0-11.0) Red Blood Count 3.89 x10^6/uL (4.30-5.70) Hemoglobin 12.6 g/dL (13.0-17.5) Hematocrit 36.3 % (39.0-53.0) Mean Corpuscular Volume 92 fL (79-100) Mean Corpuscular Hemoglobin 32 pg (25-35) Mean Corpuscular Hemoglobin Concent 35 g/dL (31-37) Red Cell Distribution Width 15.3 % (11.5-14.5) Platelet Count 51 x10^3/uL (140-400) Neutrophils (%) (Auto) 41 % (31-73) Lymphocytes (%) (Auto) 37 % (24-48) Monocytes (%) (Auto) 12 % (0-9) Eosinophils (%) (Auto) 9 % (0-3) Basophils (%) (Auto) 1 % (0-3) Neutrophils # (Auto) 0.9 x10^3/uL (1.8-7.7) Lymphocytes # (Auto) 0.8 x10^3/uL (1.0-4.8) Monocytes # (Auto) 0.3 x10^3/uL (0.0-1.1) Eosinophils # (Auto) 0.2 x10^3/uL (0.0-0.7) Basophils # (Auto) 0.0 x10^3/uL (0.0-0.2) Absolute Reticulocyte Count 0.074 x10^6/uL (0.020-0.120) Percent Reticulocyte Count 1.9 % (0.5-2.3) Immature Reticulocyte Fraction 0.45 (0.20-0.60) Sodium Level 139 mmol/L (136-145) Potassium Level 3.9 mmol/L (3.5-5.1) Chloride Level 104 mmol/L (98-107) Carbon Dioxide Level 28 mmol/L (21-32) Anion Gap 7 (6-14) Blood Urea Nitrogen 4 mg/dL (8-26) Creatinine 0.9 mg/dL (0.7-1.3) Estimated GFR (Cockcroft-Gault) 90.1 BUN/Creatinine Ratio 4 (6-20) Glucose Level 127 mg/dL (70-99) Calcium Level 8.8 mg/dL (8.5-10.1) Iron Level 61 ug/dL (65-175) Total Iron Binding Capacity 330 ug/dL (250-450) Iron Saturation 18 % (15-34) Ferritin 34 ng/mL (26-388) Total Bilirubin 1.4 mg/dL (0.2-1.0) Aspartate Amino Transf (AST/SGOT) 49 U/L (15-37) Alanine Aminotransferase (ALT/SGPT) 35 U/L (16-63) Alkaline Phosphatase 133 U/L (46-116) Total Protein 6.6 g/dL (6.4-8.2) Albumin 3.1 g/dL (3.4-5.0) Albumin/Globulin Ratio 0.9 (1.0-1.7) Assessment/Plan Assessment/Plan Assessment: Pancytopenia, likely secondary to cirrhosis with associated splenomegaly Cirrhosis Hepatitis C History of variceal bleeding Seizure-like episode Recommendations: -Recommended and requested iron studies, B12. Follow-up on results -Suspect that pancytopenia secondary to splenomegaly that was noted on recent CT. Would not recommend any additional work-up at this time -Continue care of cirrhosis per gastroenterology service -Evaluation of suspected seizure per neurology service. -Rest per Dr. Abebe. No additional inpatient evaluation is required for pancytopenia Douglas Schilling MD Medical Oncology/Hematology Ph: [phone] JOSIAH SCHILLING MD Sep 28, 2020 07:29
[2020-09-28] MEDS: PANTOPRAZOLE 40 MG TABLET.DR. PO SCH (07:56)
[2020-09-28] MEDS: LACTULOSE 20 GM/30 ML SOLUTION. PO SCH (07:56)
[2020-09-28] MEDS: levETIRAcetam 500 MG TABLET PO SCH (07:56)
[2020-09-28] MEDS: FOLIC ACID 1 MG TABLET. PO SCH (07:56)
[2020-09-28] MEDS: MORPHINE SULFATE 4 MG/ML VIAL. IV PRN (07:57)
--- NOTE | 2020-09-28 08:59 | PDOC2 ---
NEUROLOGY CONSULT Date of Service DOS: DATE: 09/28/20 TIME: 08:53 Reason for Consult Reason for Consult: Seizure Referring Physician Referring Physician: Dr. Abebe Source Source: Chart review, Patient History of Present Illness History of Present Illness The patient is a 49-year-old right-handed male with a history of alcoholic and hepatitis C cirrhosis who also has liver cancer. He had ablation of esophageal varices at [facility] in [place] on 09/19/2020, admitted to our emergency room with chest pain. He is a inmate. He has a history of seizures, his last seizure was about a year ago, he has been off anticonvulsants. He does not remember what he has taken. He had a seizure yesterday and was started on le vetiracetam, then he had another seizure last night and I gave him an extra intravenous dose. He has had no further seizures. There is no history of stroke or head injury. Past Medical History Cardiovascular: CAD, HTN, [place], Other (Deep vein thrombosis) Pulmonary: Other (Sleep apnea) CENTRAL NERVOUS SYSTEM: Seizure GI: GERD, GI bleed, Gastritis, Other (Esophageal varices) Hepatobiliary: Cirrhosis, Hep A/B/C, Other (Hepatic cancer) Psych: Addictions Musculoskeletal: Other (Fractures) Past Surgical History Past Surgical History: Other (Ablation of varices) Family History Family History: Other (Negative for seizures) Social History Social History Inmate, no longer using alcohol or tobacco Current Medications Current Medications Current Medications Sodium Chloride 1,000 ml @ 1,000 mls/hr Q1H IV Last administered on 09/24/20at 00:09; Start 09/23/20 at 22:30; Stop 09/24/20 at 00:41; Status DC Vancomycin HCl (Vanco Per Pharmacy) 1 each PRN DAILY PRN MC SEE COMMENTS Last administered on 09/25/20at 01:57; Start 09/23/20 at 22:00; Stop 09/25/20 at 12:48; Status DC Ceftriaxone Sodium (Rocephin) 1 gm 1X ONCE IVP Last administered on 09/23/20at 22:30; Start 09/23/20 at 22:30; Stop 09/23/20 at 22:31; Status DC Pantoprazole Sodium (PROTONIX VIAL for IV PUSH) 80 mg 1X ONCE IVP Last administered on 09/23/20at 22:24; Start 09/23/20 at 22:30; Stop 09/23/20 at 22:31; Status DC Octreotide Acetate 500 mcg/ Sodium Chloride 101 ml @ 0 mls/hr CONT PRN IV SEE I/O RECORD Last administered on 09/24/20at 14:08; Start 09/23/20 at 22:00; Stop 09/25/20 at 10:38; Status DC Morphine Sulfate (Morphine Sulfate) 4 mg 1X ONCE IV Last administered on 09/23/20at 22:21; Start 09/23/20 at 22:30; Stop 09/23/20 at 22:31; Status DC Vancomycin HCl 2 gm/Sodium Chloride 500 ml @ 250 mls/hr 1X ONCE IV Last administered on 09/23/20at 22:41; Start 09/23/20 at 23:00; Stop 09/24/20 at 00:59; Status DC Iohexol (Omnipaque 300 Mg/ml) 75 ml 1X ONCE IV Last administered on 09/23/20at 23:12; Start 09/23/20 at 23:00; Stop 09/23/20 at 23:01; Status DC Info (CONTRAST GIVEN -- Rx MONITORING) 1 each PRN DAILY PRN MC SEE COMMENTS; Start 09/23/20 at 22:45; Stop 09/25/20 at 22:44; Status DC Ondansetron HCl (Zofran) 4 mg PRN Q8HRS PRN IV NAUSEA/VOMITING 1ST CHOICE Last administered on 09/24/20at 14:44; Start 09/24/20 at 01:00; Stop 09/25/20 at 00:59; Status DC Morphine Sulfate (Morphine Sulfate) 4 mg PRN Q2HR PRN IV SEVERE PAIN 7-10 Last administered on 09/25/20at 00:16; Start 09/24/20 at 01:00; Stop 09/25/20 at 00:59; Status DC Vancomycin HCl 1.5 gm/Sodium Chloride 500 ml @ 250 mls/hr Q8H IV Last administered on 09/25/20at 00:09; Start 09/24/20 at 07:00; Stop 09/25/20 at 04:00; Status DC Vancomycin HCl (Vancomycin Trough Level) 1 each 1X ONCE MC Last administered on 09/24/20at 22:30; Start 09/24/20 at 22:30; Stop 09/25/20 at 12:46; Status DC Pantoprazole Sodium (Protonix) 40 mg BID PO Last administered on 09/28/20at 07:56; Start 09/24/20 at 11:30 Lactulose (Lactulose) 20 gm BID PO Last administered on 09/28/20at 07:56; Start 09/24/20 at 13:00 Vancomycin HCl 1.5 gm/Sodium Chloride 500 ml @ 250 mls/hr Q12H IV ; Start 09/25/20 at 12:00; Stop 09/25/20 at 12:46; Status DC Vancomycin HCl (Vancomycin Trough Level) 1 each 1X ONCE MC ; Start 09/26/20 at 23:30; Stop 09/25/20 at 12:46; Status DC Morphine Sulfate (Morphine Sulfate) 4 mg PRN Q2HR PRN IV SEVERE PAIN 7-10 Last administered on 09/28/20at 07:57; Start 09/25/20 at 05:15 Multi-Ingredient Mouthwash/Gargle (Gi Cocktail) 20 ml PRN QID PRN PO CHEST PAIN Last administered on 09/26/20at 13:05; Start 09/25/20 at 23:15 Sennosides (Senna) 17.2 mg PRN BID PRN PO CONSTIPATION; Start 09/26/20 at 08:30 Docusate Sodium (Colace) 100 mg PRN DAILY PRN PO HARD STOOLS; Start 09/26/20 at 08:30 Ondansetron HCl (Zofran) 4 mg PRN Q6HRS PRN IVP NAUSEA/VOMITING; Start 09/26/20 at 08:30 Dextrose (Dextrose 50%-Water Syringe) 12.5 gm PRN Q15MIN PRN IV SEE COMMENTS; Start 09/26/20 at 08:30 Acetaminophen (Tylenol) 650 mg PRN Q4HRS PRN PO TEMP OVER 100.4F OR MILD PAIN; Start 09/26/20 at 08:30 Thiamine Mononitrate (Vitamin B-1) 300 mg DAILY PO Last administered on 09/27/20at 12:34; Start 09/26/20 at 09:00 Folic Acid (Folic Acid) 1 mg DAILY PO Last administered on 09/28/20at 07:56; Start 09/26/20 at 09:00 Oxycodone/ Acetaminophen (Percocet 10/325) 1 tab PRN Q6HRS PRN PO MODERATE PAIN, SEVERE PAIN Last administered on 09/28/20at 02:28; Start 09/27/20 at 09:15 Levetiracetam (Keppra) 500 mg BID PO Last administered on 09/28/20at 07:56; Start 09/27/20 at 19:00 Levetiracetam 1000 mg/Dextrose 110 ml @ 440 mls/hr 1X ONCE IV Last administered on 09/28/20at 02:07; Start 09/28/20 at 02:00; Stop 09/28/20 at 02:14; Status DC Active Scripts Active Reported Tums (Calcium Carbonate) 300 Mg Tab.chew 500 Mg PO TIDAFTMEAL Omeprazole 40 Mg Capsule.dr 40 Mg PO DAILY Lactulose 20 Gm/30 Ml Solution 10 Gm PO BID Isosorbide Mononitrate Er (Isosorbide Mononitrate) 30 Mg Tab.er.24h 1 Tab PO DAILY Furosemide 20 Mg Tablet 20 Mg PO DAILY Allergies Allergies: Coded Allergies: ibuprofen (Verified Allergy, Intermediate, 09/23/20) ketorolac (Verified Allergy, Intermediate, 09/23/20) ROS Review of System Negative for fever, chills, weight loss, shortness of breath, chest pain, indigestion, hematochezia, melena, and dysuria. Full 14-point review of systems is negative. Physical Exam Physical Examination General: Well-developed, well-nourished male in no acute distress HEENT: Normocephalic andatraumatic. Temporal arteriespulsatile and nontender. Neck: Supple without bruit, no meningismus Musculoskeletal: Stability:see neurologic. Gait exam:see neurologic. Tone:see neurologic.Strength:see neurologic. Neurological: Mental Status:intact, orientation, memory, attention span/concentration, language, fund of knowledge normal. Cranial Nerves:Pupils equal and reactive to light, extraocular movements areintact, visual restrepo are full to confrontation. Facial sensation is normal. There is no facial asymmetry. Vestibulo-ocular reflex is intact. Palate elevates and tongue protrudes in midline. All other cranial related problems are negative except as mentioned before.Reflexes:2+ and symmetric with flexor plantar responses. Motor:45/5 strength with normal tone and bulk. Coordination:Finger-nose finger and dihp-ia-bbwg testing are normal. Rapid alternating movements and fine finger movements are intact. No asterixis. Gait:Not tested. Sensory:Normal pinprick, vibration, light touch, proprioception. Vitals VITALS Vital Signs Date Time Temp Pulse Resp B/P (MAP) Pulse Ox O2 Delivery O2 Flow Rate FiO2 09/28/20 07:57 96 Room Air 2.0 09/28/20 03:25 97.5 71 18 116/73 (87) 97.5 Labs Labs Laboratory Tests Test 09/27/20 04:10 09/27/20 18:20 09/28/20 00:47 09/28/20 04:10 White Blood Count 2.7 x10^3/uL (4.0-11.0) 2.3 x10^3/uL (4.0-11.0) Red Blood Count 3.97 x10^6/uL (4.30-5.70) 3.89 x10^6/uL (4.30-5.70) Hemoglobin 12.6 g/dL (13.0-17.5) 12.6 g/dL (13.0-17.5) Hematocrit 36.1 % (39.0-53.0) 36.3 % (39.0-53.0) Mean Corpuscular Volume 91 fL (79-100) 92 fL (79-100) Mean Corpuscular Hemoglobin 32 pg (25-35) 32 pg (25-35) Mean Corpuscular Hemoglobin Concent 35 g/dL (31-37) 35 g/dL (31-37) Red Cell Distribution Width 15.2 % (11.5-14.5) 15.3 % (11.5-14.5) Platelet Count 54 x10^3/uL (140-400) 51 x10^3/uL (140-400) Neutrophils (%) (Auto) 41 % (31-73) 41 % (31-73) Lymphocytes (%) (Auto) 37 % (24-48) 37 % (24-48) Monocytes (%) (Auto) 12 % (0-9) 12 % (0-9) Eosinophils (%) (Auto) 9 % (0-3) 9 % (0-3) Basophils (%) (Auto) 1 % (0-3) 1 % (0-3) Neutrophils # (Auto) 1.1 x10^3/uL (1.8-7.7) 0.9 x10^3/uL (1.8-7.7) Lymphocytes # (Auto) 1.0 x10^3/uL (1.0-4.8) 0.8 x10^3/uL (1.0-4.8) Monocytes # (Auto) 0.3 x10^3/uL (0.0-1.1) 0.3 x10^3/uL (0.0-1.1) Eosinophils # (Auto) 0.2 x10^3/uL (0.0-0.7) 0.2 x10^3/uL (0.0-0.7) Basophils # (Auto) 0.0 x10^3/uL (0.0-0.2) 0.0 x10^3/uL (0.0-0.2) Sodium Level 140 mmol/L (136-145) 139 mmol/L (136-145) Potassium Level 3.4 mmol/L (3.5-5.1) 3.9 mmol/L (3.5-5.1) Chloride Level 105 mmol/L (98-107) 104 mmol/L (98-107) Carbon Dioxide Level 25 mmol/L (21-32) 28 mmol/L (21-32) Anion Gap 10 (6-14) 7 (6-14) Blood Urea Nitrogen 5 mg/dL (8-26) 4 mg/dL (8-26) Creatinine 0.9 mg/dL (0.7-1.3) 0.9 mg/dL (0.7-1.3) Estimated GFR (Cockcroft-Gault) 90.1 90.1 BUN/Creatinine Ratio 6 (6-20) 4 (6-20) Glucose Level 91 mg/dL (70-99) 127 mg/dL (70-99) Calcium Level 8.7 mg/dL (8.5-10.1) 8.8 mg/dL (8.5-10.1) Phosphorus Level 3.6 mg/dL (2.6-4.7) Magnesium Level 2.1 mg/dL (1.8-2.4) Total Bilirubin 1.4 mg/dL (0.2-1.0) 1.4 mg/dL (0.2-1.0) Aspartate Amino Transf (AST/SGOT) 37 U/L (15-37) 49 U/L (15-37) Alanine Aminotransferase (ALT/SGPT) 24 U/L (16-63) 35 U/L (16-63) Alkaline Phosphatase 101 U/L (46-116) 133 U/L (46-116) Total Protein 6.6 g/dL (6.4-8.2) 6.6 g/dL (6.4-8.2) Albumin 3.0 g/dL (3.4-5.0) 3.1 g/dL (3.4-5.0) Albumin/Globulin Ratio 0.8 (1.0-1.7) 0.9 (1.0-1.7) Glucose (Fingerstick) 127 mg/dL (70-99) 118 mg/dL (70-99) Absolute Reticulocyte Count 0.074 x10^6/uL (0.020-0.120) Percent Reticulocyte Count 1.9 % (0.5-2.3) Immature Reticulocyte Fraction 0.45 (0.20-0.60) Iron Level 61 ug/dL (65-175) Total Iron Binding Capacity 330 ug/dL (250-450) Iron Saturation 18 % (15-34) Ferritin 34 ng/mL (26-388) Laboratory Tests Test 09/27/20 18:20 09/28/20 00:47 09/28/20 04:10 Glucose (Fingerstick) 127 mg/dL (70-99) 118 mg/dL (70-99) White Blood Count 2.3 x10^3/uL (4.0-11.0) Red Blood Count 3.89 x10^6/uL (4.30-5.70) Hemoglobin 12.6 g/dL (13.0-17.5) Hematocrit 36.3 % (39.0-53.0) Mean Corpuscular Volume 92 fL (79-100) Mean Corpuscular Hemoglobin 32 pg (25-35) Mean Corpuscular Hemoglobin Concent 35 g/dL (31-37) Red Cell Distribution Width 15.3 % (11.5-14.5) Platelet Count 51 x10^3/uL (140-400) Neutrophils (%) (Auto) 41 % (31-73) Lymphocytes (%) (Auto) 37 % (24-48) Monocytes (%) (Auto) 12 % (0-9) Eosinophils (%) (Auto) 9 % (0-3) Basophils (%) (Auto) 1 % (0-3) Neutrophils # (Auto) 0.9 x10^3/uL (1.8-7.7) Lymphocytes # (Auto) 0.8 x10^3/uL (1.0-4.8) Monocytes # (Auto) 0.3 x10^3/uL (0.0-1.1) Eosinophils # (Auto) 0.2 x10^3/uL (0.0-0.7) Basophils # (Auto) 0.0 x10^3/uL (0.0-0.2) Absolute Reticulocyte Count 0.074 x10^6/uL (0.020-0.120) Percent Reticulocyte Count 1.9 % (0.5-2.3) Immature Reticulocyte Fraction 0.45 (0.20-0.60) Sodium Level 139 mmol/L (136-145) Potassium Level 3.9 mmol/L (3.5-5.1) Chloride Level 104 mmol/L (98-107) Carbon Dioxide Level 28 mmol/L (21-32) Anion Gap 7 (6-14) Blood Urea Nitrogen 4 mg/dL (8-26) Creatinine 0.9 mg/dL (0.7-1.3) Estimated GFR (Cockcroft-Gault) 90.1 BUN/Creatinine Ratio 4 (6-20) Glucose Level 127 mg/dL (70-99) Calcium Level 8.8 mg/dL (8.5-10.1) Iron Level 61 ug/dL (65-175) Total Iron Binding Capacity 330 ug/dL (250-450) Iron Saturation 18 % (15-34) Ferritin 34 ng/mL (26-388) Total Bilirubin 1.4 mg/dL (0.2-1.0) Aspartate Amino Transf (AST/SGOT) 49 U/L (15-37) Alanine Aminotransferase (ALT/SGPT) 35 U/L (16-63) Alkaline Phosphatase 133 U/L (46-116) Total Protein 6.6 g/dL (6.4-8.2) Albumin 3.1 g/dL (3.4-5.0) Albumin/Globulin Ratio 0.9 (1.0-1.7) Images Images CT head without contrast PQRS statement: CT scans at this facility use dose reduction including either automated exposure control, iterative reconstructions, and /or weight based r adiation dosing via mA and kV modification when appropriate to reduce radiation dose to as low as reasonably achievable. HISTORY: Seizures. FINDINGS: No intracranial hemorrhage, mass, hydrocephalus, extra-axial fluid collections or infarction. Orbits, mastoids and bones are unremarkable. IMPRESSION: Normal exam. Assessment/Plan Assessment/Plan Impression: Epilepsy, contributions from his liver disease and other metabolic issues, this is not a new seizure Hepatocellular cancer, cirrhosis, history of hepatitis C, esophageal varices, GI bleeding, cardiac disease Recommendations: Continue levetiracetam No need for additional studies such as MRI or EEG Okay to discharge from neurology perspective. Thank you for letting me help with the patient's care. JANE STANTON MD Sep 28, 2020 08:59
[2020-09-28] MEDS: THIAMINE 100 MG TABLET. PO SCH (09:00)
[2020-09-28] MEDS ORDERED: ACET325T9 PO (10:40)
[2020-09-28] MEDS ORDERED: LEVE500T56 PO (10:40)
--- NOTE | 2020-09-28 10:44 | SNU/HH DC ---
DISCHARGE ORDERS DISCHARGE INFORMATION: DISCHARGE DATE: Sep 28, 2020 FINAL DIAGNOSIS Problems Medical Problems: (1) Chest pain Status: Acute (2) Cirrhosis Status: Acute (3) Esophageal varices Status: Acute CONDITION ON DISCHARGE: Stable CODE STATUS: Code Status: Full POST DISCHARGE ORDERS: ACTIVITY ORDERS: Resume previous activity WEIGHT BEARING STATUS: No restrictions DIET AFTER DISCHARGE: Cardiac CHECKS AFTER DISCHARGE: CHECKS AFTER DISCHARGE: Check blood press - daily, Check your Temp as needed FOLLOW-UP: PHYSICIAN FOLLOW-UP: Cardiology - [facility], [place] DISCHARGE MEDICATIONS: Home Meds Active Scripts Levetiracetam (KEPPRA) 500 Mg Tablet, 500 MG PO BID for Seizures for 90 Days, #180 TAB 3 Refills Prov:MANJULA CRUZ MD 09/28/20 Acetaminophen (TYLENOL) 325 Mg Tablet, 650 MG PO PRN BID PRN for TEMP OVER 100.4F OR MILD PAIN for 30 Days, #30 TAB Prov:MANJULA CRUZ MD 09/28/20 Reported Medications Calcium Carbonate (TUMS) 300 Mg Tab.chew, 500 MG PO TIDAFTMEAL for GERD, TAB.CHEW 09/24/20 Omeprazole (OMEPRAZOLE) 40 Mg Capsule.dr, 40 MG PO DAILY for GERD, CAP 09/24/20 Lactulose (LACTULOSE) 20 Gm/30 Ml Solution, 10 GM PO BID for Liver failure, MISC 09/24/20 Isosorbide Mononitrate (ISOSORBIDE MONONITRATE ER) 30 Mg Tab.er.24h, 1 TAB PO DAILY for HTN, #30 TAB 5 Refills 09/24/20 Furosemide (FUROSEMIDE) 20 Mg Tablet, 20 MG PO DAILY for Liver Failure, TAB 09/24/20 MANJULA CRUZ MD Sep 28, 2020 10:44
--- NOTE | 2020-09-28 10:48 | PDOC ---
[employer] PROGRESS NOTE Date of Service DOS: DATE: 09/28/20 TIME: 10:46 Chief Complaint Chief Complaint A/P: Chest pain, possible odynophagia Cirrhosis with ascites, meld score of 13 - due to hep C Esophageal varices, status post recent banding 09/19/2020 in [place] Morbid obesity Pancytopenia, likely due to liver disease and hepatitis Hepatitis C positive Severe protein malnutrition Pancytopenia, likely secondary to cirrhosis with associated splenomegaly History of variceal bleeding Seizure-like episode Hematology, Gastroenterology, and Neurology consult History of Present Illness History of Present Illness 09/27/2020 No acute events overnight. Patient is tolerating diet but continues to still have pain with diet. No nausea or vomiting. 09/25/2020 -Patient seen and examined -CADEN RN -Chart reviewed Overnight afebrile. Was noted with some seizure-like activity which is been previously noted neurology ordered Keppra no further activity after that. Change to p.o. A bit short of breath going to restroom today. Vitals/I&O Vitals/I&O: Vital Signs Date Time Temp Pulse Resp B/P (MAP) Pulse Ox O2 Delivery O2 Flow Rate FiO2 09/28/20 08:00 Room Air 2.0 09/28/20 07:57 96 09/28/20 07:00 97.4 66 18 118/52 (74) 97.4 I & O 09/27/20 09/27/20 09/28/20 15:00 23:00 07:00 Intake Total 350 ml 545 ml 790 ml Output Total 300 ml Balance 50 ml 545 ml 790 ml Physical Exam General: Alert, Cooperative Heart: Regular rate, Normal S1, Normal S2 Lungs: Clear Abdomen: Normal bowel sounds, Soft Extremities: No clubbing Skin: No rashes Labs Labs: Laboratory Tests Test 09/27/20 18:20 09/28/20 00:47 09/28/20 04:10 Glucose (Fingerstick) 127 mg/dL (70-99) 118 mg/dL (70-99) White Blood Count 2.3 x10^3/uL (4.0-11.0) Red Blood Count 3.89 x10^6/uL (4.30-5.70) Hemoglobin 12.6 g/dL (13.0-17.5) Hematocrit 36.3 % (39.0-53.0) Mean Corpuscular Volume 92 fL (79-100) Mean Corpuscular Hemoglobin 32 pg (25-35) Mean Corpuscular Hemoglobin Concent 35 g/dL (31-37) Red Cell Distribution Width 15.3 % (11.5-14.5) Platelet Count 51 x10^3/uL (140-400) Neutrophils (%) (Auto) 41 % (31-73) Lymphocytes (%) (Auto) 37 % (24-48) Monocytes (%) (Auto) 12 % (0-9) Eosinophils (%) (Auto) 9 % (0-3) Basophils (%) (Auto) 1 % (0-3) Neutrophils # (Auto) 0.9 x10^3/uL (1.8-7.7) Lymphocytes # (Auto) 0.8 x10^3/uL (1.0-4.8) Monocytes # (Auto) 0.3 x10^3/uL (0.0-1.1) Eosinophils # (Auto) 0.2 x10^3/uL (0.0-0.7) Basophils # (Auto) 0.0 x10^3/uL (0.0-0.2) Absolute Reticulocyte Count 0.074 x10^6/uL (0.020-0.120) Percent Reticulocyte Count 1.9 % (0.5-2.3) Immature Reticulocyte Fraction 0.45 (0.20-0.60) Sodium Level 139 mmol/L (136-145) Potassium Level 3.9 mmol/L (3.5-5.1) Chloride Level 104 mmol/L (98-107) Carbon Dioxide Level 28 mmol/L (21-32) Anion Gap 7 (6-14) Blood Urea Nitrogen 4 mg/dL (8-26) Creatinine 0.9 mg/dL (0.7-1.3) Estimated GFR (Cockcroft-Gault) 90.1 BUN/Creatinine Ratio 4 (6-20) Glucose Level 127 mg/dL (70-99) Calcium Level 8.8 mg/dL (8.5-10.1) Iron Level 61 ug/dL (65-175) Total Iron Binding Capacity 330 ug/dL (250-450) Iron Saturation 18 % (15-34) Ferritin 34 ng/mL (26-388) Total Bilirubin 1.4 mg/dL (0.2-1.0) Aspartate Amino Transf (AST/SGOT) 49 U/L (15-37) Alanine Aminotransferase (ALT/SGPT) 35 U/L (16-63) Alkaline Phosphatase 133 U/L (46-116) Total Protein 6.6 g/dL (6.4-8.2) Albumin 3.1 g/dL (3.4-5.0) Albumin/Globulin Ratio 0.9 (1.0-1.7) Vitamin B12 Level 615 pg/mL (247-911) Assessment and Plan Assessmemt and Plan Problems Medical Problems: (1) Chest pain Status: Acute (2) Cirrhosis Status: Acute (3) Esophageal varices Status: Acute Comment Review of Relevant I have reviewed the following items kyleigh (where applicable) has been applied. Medications: Current Medications Medications (Trade) Dose Ordered Sig/Gina Route PRN Reason Start Time Stop Time Status Last Admin Dose Admin Levetiracetam (Keppra) 500 mg BID PO 09/27/20 19:00 09/28/20 07:56 Levetiracetam 1000 mg/Dextrose 110 ml @ 440 mls/hr 1X ONCE IV 09/28/20 02:00 09/28/20 02:14 DC 09/28/20 02:07 Justifications for Admission Other Justification MANJULA CRUZ MD Sep 28, 2020 10:48
--- NOTE | 2020-09-28 10:53 | PDOC3 ---
Discharge Summary Visit Information Date of Admission: Sep 24, 2020 Date of Discharge: Sep 28, 2020 Admitting Diagnosis: Chest pain Final Diagnosis Problems Medical Problems: (1) Chest pain Status: Acute (2) Cirrhosis Status: Acute (3) Esophageal varices Status: Acute Brief Hospital Course Allergies Allergies Coded Allergies Type Severity Reaction Last Updated Verified ibuprofen Allergy Intermediate 09/23/20 Yes ketorolac Allergy Intermediate 09/23/20 Yes Vital Signs Vital Signs Date Time Temp Pulse Resp B/P (MAP) Pulse Ox O2 Delivery O2 Flow Rate FiO2 09/28/20 08:00 Room Air 2.0 09/28/20 07:57 96 09/28/20 07:00 97.4 66 18 118/52 (74) 97.4 Lab Results Laboratory Tests Test 09/27/20 04:10 09/27/20 18:20 09/28/20 00:47 09/28/20 04:10 White Blood Count 2.7 x10^3/uL (4.0-11.0) 2.3 x10^3/uL (4.0-11.0) Red Blood Count 3.97 x10^6/uL (4.30-5.70) 3.89 x10^6/uL (4.30-5.70) Hemoglobin 12.6 g/dL (13.0-17.5) 12.6 g/dL (13.0-17.5) Hematocrit 36.1 % (39.0-53.0) 36.3 % (39.0-53.0) Mean Corpuscular Volume 91 fL (79-100) 92 fL (79-100) Mean Corpuscular Hemoglobin 32 pg (25-35) 32 pg (25-35) Mean Corpuscular Hemoglobin Concent 35 g/dL (31-37) 35 g/dL (31-37) Red Cell Distribution Width 15.2 % (11.5-14.5) 15.3 % (11.5-14.5) Platelet Count 54 x10^3/uL (140-400) 51 x10^3/uL (140-400) Neutrophils (%) (Auto) 41 % (31-73) 41 % (31-73) Lymphocytes (%) (Auto) 37 % (24-48) 37 % (24-48) Monocytes (%) (Auto) 12 % (0-9) 12 % (0-9) Eosinophils (%) (Auto) 9 % (0-3) 9 % (0-3) Basophils (%) (Auto) 1 % (0-3) 1 % (0-3) Neutrophils # (Auto) 1.1 x10^3/uL (1.8-7.7) 0.9 x10^3/uL (1.8-7.7) Lymphocytes # (Auto) 1.0 x10^3/uL (1.0-4.8) 0.8 x10^3/uL (1.0-4.8) Monocytes # (Auto) 0.3 x10^3/uL (0.0-1.1) 0.3 x10^3/uL (0.0-1.1) Eosinophils # (Auto) 0.2 x10^3/uL (0.0-0.7) 0.2 x10^3/uL (0.0-0.7) Basophils # (Auto) 0.0 x10^3/uL (0.0-0.2) 0.0 x10^3/uL (0.0-0.2) Sodium Level 140 mmol/L (136-145) 139 mmol/L (136-145) Potassium Level 3.4 mmol/L (3.5-5.1) 3.9 mmol/L (3.5-5.1) Chloride Level 105 mmol/L (98-107) 104 mmol/L (98-107) Carbon Dioxide Level 25 mmol/L (21-32) 28 mmol/L (21-32) Anion Gap 10 (6-14) 7 (6-14) Blood Urea Nitrogen 5 mg/dL (8-26) 4 mg/dL (8-26) Creatinine 0.9 mg/dL (0.7-1.3) 0.9 mg/dL (0.7-1.3) Estimated GFR (Cockcroft-Gault) 90.1 90.1 BUN/Creatinine Ratio 6 (6-20) 4 (6-20) Glucose Level 91 mg/dL (70-99) 127 mg/dL (70-99) Calcium Level 8.7 mg/dL (8.5-10.1) 8.8 mg/dL (8.5-10.1) Phosphorus Level 3.6 mg/dL (2.6-4.7) Magnesium Level 2.1 mg/dL (1.8-2.4) Total Bilirubin 1.4 mg/dL (0.2-1.0) 1.4 mg/dL (0.2-1.0) Aspartate Amino Transf (AST/SGOT) 37 U/L (15-37) 49 U/L (15-37) Alanine Aminotransferase (ALT/SGPT) 24 U/L (16-63) 35 U/L (16-63) Alkaline Phosphatase 101 U/L (46-116) 133 U/L (46-116) Total Protein 6.6 g/dL (6.4-8.2) 6.6 g/dL (6.4-8.2) Albumin 3.0 g/dL (3.4-5.0) 3.1 g/dL (3.4-5.0) Albumin/Globulin Ratio 0.8 (1.0-1.7) 0.9 (1.0-1.7) Glucose (Fingerstick) 127 mg/dL (70-99) 118 mg/dL (70-99) Absolute Reticulocyte Count 0.074 x10^6/uL (0.020-0.120) Percent Reticulocyte Count 1.9 % (0.5-2.3) Immature Reticulocyte Fraction 0.45 (0.20-0.60) Iron Level 61 ug/dL (65-175) Total Iron Binding Capacity 330 ug/dL (250-450) Iron Saturation 18 % (15-34) Ferritin 34 ng/mL (26-388) Vitamin B12 Level 615 pg/mL (247-911) Laboratory Tests Test 09/27/20 18:20 09/28/20 00:47 09/28/20 04:10 Glucose (Fingerstick) 127 mg/dL (70-99) 118 mg/dL (70-99) White Blood Count 2.3 x10^3/uL (4.0-11.0) Red Blood Count 3.89 x10^6/uL (4.30-5.70) Hemoglobin 12.6 g/dL (13.0-17.5) Hematocrit 36.3 % (39.0-53.0) Mean Corpuscular Volume 92 fL (79-100) Mean Corpuscular Hemoglobin 32 pg (25-35) Mean Corpuscular Hemoglobin Concent 35 g/dL (31-37) Red Cell Distribution Width 15.3 % (11.5-14.5) Platelet Count 51 x10^3/uL (140-400) Neutrophils (%) (Auto) 41 % (31-73) Lymphocytes (%) (Auto) 37 % (24-48) Monocytes (%) (Auto) 12 % (0-9) Eosinophils (%) (Auto) 9 % (0-3) Basophils (%) (Auto) 1 % (0-3) Neutrophils # (Auto) 0.9 x10^3/uL (1.8-7.7) Lymphocytes # (Auto) 0.8 x10^3/uL (1.0-4.8) Monocytes # (Auto) 0.3 x10^3/uL (0.0-1.1) Eosinophils # (Auto) 0.2 x10^3/uL (0.0-0.7) Basophils # (Auto) 0.0 x10^3/uL (0.0-0.2) Absolute Reticulocyte Count 0.074 x10^6/uL (0.020-0.120) Percent Reticulocyte Count 1.9 % (0.5-2.3) Immature Reticulocyte Fraction 0.45 (0.20-0.60) Sodium Level 139 mmol/L (136-145) Potassium Level 3.9 mmol/L (3.5-5.1) Chloride Level 104 mmol/L (98-107) Carbon Dioxide Level 28 mmol/L (21-32) Anion Gap 7 (6-14) Blood Urea Nitrogen 4 mg/dL (8-26) Creatinine 0.9 mg/dL (0.7-1.3) Estimated GFR (Cockcroft-Gault) 90.1 BUN/Creatinine Ratio 4 (6-20) Glucose Level 127 mg/dL (70-99) Calcium Level 8.8 mg/dL (8.5-10.1) Iron Level 61 ug/dL (65-175) Total Iron Binding Capacity 330 ug/dL (250-450) Iron Saturation 18 % (15-34) Ferritin 34 ng/mL (26-388) Total Bilirubin 1.4 mg/dL (0.2-1.0) Aspartate Amino Transf (AST/SGOT) 49 U/L (15-37) Alanine Aminotransferase (ALT/SGPT) 35 U/L (16-63) Alkaline Phosphatase 133 U/L (46-116) Total Protein 6.6 g/dL (6.4-8.2) Albumin 3.1 g/dL (3.4-5.0) Albumin/Globulin Ratio 0.9 (1.0-1.7) Vitamin B12 Level 615 pg/mL (247-911) Brief Hospital Course Mr Doyle is a 49-year-old male with past medical history of cirrhosis with ascites status post multiple paracentesis, hepatitis C that has been treated, multiple EGDs for his esophageal varices admitted with chest pain (central and left), shoulder pain, SOA, nausea, hemoptysis, spitting up red blood, painful swallowing since banding of esophageal varices in [place], [place] on 09/19/20. Work- up did not show any elevated troponins or abnormal EKG changes. Patient states that the chest pain occurred 30 minutes prior to arrival on the left side substernal region and radiated to the left neck and left upper extremity. He also had pain in his upper abdominal area in a bandlike position. Endorses associated tingling in his left upper extremity and lower extremities. Patient also did endorse hemoptysis as well. Denies fevers, chills, dysuria or diarrhea or syncope. 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 Past paracentesis (last 1 year ago) and 24 previous banding procedures (a couple places in [place], [place], [place], at [facility], and now [place]). He was noted with seizure like activity, started on keppra. His swallowing improved after 3 days inpatient, advanced diet with no complications. Problem list: Chest pain, possible odynophagia, esophageal spasm Cirrhosis with ascites, meld score of 13 - due to hep C Esophageal varices, status post recent banding 09/19/2020 in [place] Morbid obesity Pancytopenia, likely due to liver disease and hepatitis Hepatitis C positive - negative PCR on 09/25/20 Severe protein malnutrition Pancytopenia, likely secondary to cirrhosis with associated splenomegaly History of variceal bleeding Seizure-like episode Hematology, Gastroenterology, and Neurology consult 09/27: No acute events overnight. Patient is tolerating diet but continues to still have pain with diet. No nausea or vomiting. Overnight afebrile. Was noted with some seizure-like activity which is been previously noted neurology ordered Keppra no further activity after that. Change to p.o. A bit short of breath going to restroom today. Greater than 30 minutes spent on d/c to [facility] Discharge Information Condition at Discharge: Improved Follow Up: Weeks Disposition/Orders: D/C to Another Facility Scheduled Calcium Carbonate (Tums) 300 Mg Tab.chew, 500 MG PO TIDAFTMEAL for GERD, (Reported) Entered as Reported by: KELVIN ARAUJO on 09/24/20327 Last Taken: Unknown Dose on 09/23/20 Last Action: New Order on 09/24/20327 by KELVIN ARAUJO Furosemide (Furosemide) 20 Mg Tablet, 20 MG PO DAILY for Liver Failure, (Reported) Entered as Reported by: KELVIN ARAUJO on 09/24/20327 Last Taken: Unknown Dose on 09/24/20 Last Action: New Order on 09/24/20327 by KELVIN ARAUJO Isosorbide Mononitrate (Isosorbide Mononitrate Er) 30 Mg Tab.er.24h, 1 TAB PO DAILY for HTN, #30 Ref 5 (Reported) Entered as Reported by: KELVIN ARAUJO on 09/24/20327 Last Taken: Unknown Dose on 09/24/20 Last Action: New Order on 09/24/20327 by KELVIN ARAUJO Lactulose (Lactulose) 20 Gm/30 Ml Solution, 10 GM PO BID for Liver failure, (Reported) Entered as Reported by: KELVIN ARAUJO on 09/24/20327 Last Taken: Unknown Dose on 09/24/20 Last Action: New Order on 09/24/20327 by KELVIN ARAUJO Levetiracetam (Keppra) 500 Mg Tablet, 500 MG PO BID for Seizures for 90 Days, #180 Ref 3 Prescribed by: MANJULA CRUZ MD on 09/28/20 1040 Omeprazole (Omeprazole) 40 Mg Capsule.dr, 40 MG PO DAILY for GERD, (Reported) Entered as Reported by: KELVIN ARAUJO on 1/28/21 0328 Last Taken: Unknown Dose on 09/23/20 Last Action: New Order on 09/24/20 0328 by KELVIN ARAUJO Scheduled PRN Acetaminophen (Tylenol) 325 Mg Tablet, 650 MG PO PRN BID PRN for TEMP OVER 100.4F OR MILD PAIN for 30 Days, #30 Prescribed by: MANJULA CRUZ MD on 09/28/20 1040 Justicifation of Admission Dx: Justifications for Admission: Justification of Admission Dx: Yes MANJULA CRUZ MD Sep 28, 2020 10:53
[2020-09-28 11:00] VITALS: BP 125/53
--- NOTE | 2020-09-28 11:07 | PDOC ---
Date of Service: DATE: 09/28/20 TIME: 11:03 Subjective: Subjective: Feeling some better. He is concerned about white blood cell and platelet counts, says his "body feels it." Says he spits up blood, doesn't feel good all the time. Also asks to eat more. Objective: Objective: Kellen says tolerated GI soft breakfast. D/w nurse - pt complains of nausea but wants more food - she told him not to eat more if he's nauseated - he then said he wasn't nauseated. Vital Signs: Vital Signs Date Time Temp Pulse Resp B/P (MAP) Pulse Ox O2 Delivery O2 Flow Rate FiO2 09/28/20 08:00 Room Air 2.0 09/28/20 07:57 96 09/28/20 07:00 97.4 66 18 118/52 (74) 97.4 Labs: Laboratory Tests Test 09/27/20 18:20 09/28/20 00:47 09/28/20 04:10 Glucose (Fingerstick) 127 mg/dL 118 mg/dL White Blood Count 2.3 x10^3/uL Red Blood Count 3.89 x10^6/uL Hemoglobin 12.6 g/dL Hematocrit 36.3 % Mean Corpuscular Volume 92 fL Mean Corpuscular Hemoglobin 32 pg Mean Corpuscular Hemoglobin Concent 35 g/dL Red Cell Distribution Width 15.3 % Platelet Count 51 x10^3/uL Neutrophils (%) (Auto) 41 % Lymphocytes (%) (Auto) 37 % Monocytes (%) (Auto) 12 % Eosinophils (%) (Auto) 9 % Basophils (%) (Auto) 1 % Neutrophils # (Auto) 0.9 x10^3/uL Lymphocytes # (Auto) 0.8 x10^3/uL Monocytes # (Auto) 0.3 x10^3/uL Eosinophils # (Auto) 0.2 x10^3/uL Basophils # (Auto) 0.0 x10^3/uL Platelet Estimate Pending Absolute Reticulocyte Count 0.074 x10^6/uL Percent Reticulocyte Count 1.9 % Immature Reticulocyte Fraction 0.45 Sodium Level 139 mmol/L Potassium Level 3.9 mmol/L Chloride Level 104 mmol/L Carbon Dioxide Level 28 mmol/L Anion Gap 7 Blood Urea Nitrogen 4 mg/dL Creatinine 0.9 mg/dL Estimated GFR (Cockcroft-Gault) 90.1 BUN/Creatinine Ratio 4 Glucose Level 127 mg/dL Calcium Level 8.8 mg/dL Iron Level 61 ug/dL Total Iron Binding Capacity 330 ug/dL Iron Saturation 18 % Ferritin 34 ng/mL Total Bilirubin 1.4 mg/dL Aspartate Amino Transf (AST/SGOT) 49 U/L Alanine Aminotransferase (ALT/SGPT) 35 U/L Alkaline Phosphatase 133 U/L Total Protein 6.6 g/dL Albumin 3.1 g/dL Albumin/Globulin Ratio 0.9 Vitamin B12 Level 615 pg/mL PE: GEN: NAD - eating ice cream, two guards present LUNGS: CTAB HEART: RRR ABD: obese, soft NEURO/PSYCH: A & O 3 A/P: Hematemesis, odynophagia - no bleeding per staff and seems to be eating quite well Cirrhosis, recent variceal banding -- Dc per primary on PPI, follow-up w/ GI in [place]. Justicifation of Admission Dx: Justifications for Admission: Justification of Admission Dx: Yes GUDEILA LOZANO Sep 28, 2020 11:07
--- NOTE | 2020-09-28 11:15 | NUR ---
PATIENT DISCHARGED BACK TO [facility] IN [place]. REPORT GIVEN TO YULY KOROMA. AWAITS TRANSPORTATION.
[2020-09-28 12:16] LABS: % BANDS 1 % (0-9); % EOS 4 % (0-5); % LYMPHS 37 % (24-48); % MONOS 8 % (0-10); % SEGS 50 % (35-66)
[2020-09-28 12:17] LABS: PLT ESTIMATE DECREASED (ADEQUATE)
--- NOTE | 2020-09-28 13:15 | NUR ---
Patient off unit per wheelchair per guards.
[2020-09-30] MEDS ORDERED: OMEP40CA7 PO (16:29)
== END 2020-09-28 13:15 | DRG 391 ==
LOC: EEVIPCON 21:36 → ER 21:36 → 2 NORTH 09-24 01:22 → OBSVTOIN 09-24 01:37
PROVIDERS: ADMIT Internal Medicine; ATTEND Internal Medicine
DX: K22.4 Dyskinesia of esophagus (principal); E43 Unspecified severe protein-calorie malnutrition; Z68.43 Body mass index [BMI] 50.0-59.9, adult; R04.2 Hemoptysis; D61.818 Other pancytopenia; D68.9 Coagulation defect, unspecified; E72.20 Disorder of urea cycle metabolism, unspecified; R18.8 Other ascites; K92.0 Hematemesis; R13.10 Dysphagia, unspecified; B19.20 Unspecified viral hepatitis C without hepatic coma; I10 Essential (primary) hypertension; R20.2 Paresthesia of skin; G47.33 Obstructive sleep apnea (adult) (pediatric); I86.4 Gastric varices; R16.1 Splenomegaly, not elsewhere classified; I25.10 Atherosclerotic heart disease of native coronary artery without angina pectoris; G40.909 Epilepsy, unspecified, not intractable, without status epilepticus; K21.9 Gastro-esophageal reflux disease without esophagitis; E66.01 Morbid (severe) obesity due to excess calories; K74.60 Unspecified cirrhosis of liver; N62 Hypertrophy of breast; Z85.05 Personal history of malignant neoplasm of liver; Z88.6 Allergy status to analgesic agent; Z86.718 Personal history of other venous thrombosis and embolism; I25.2 Old myocardial infarction
CPT/HCPCS: 36415; 70450; 71045; 71260; 74177; 80048; 80053; 80076; 80202; 82140; 82150; 82550; 82607; 82728; 82962; 83540; 83550; 83605; 83690; 83735; 84100; 84145; 84484; 85007; 85014; 85018; 85025; 85045; 85610; 85730; 86703; 86803; 87040; 87522; 87804; 93005; 96365; 96366; 96375; 99285; C9113; G0379; J0696; J1953; J2270; J2354; J2405; J3370; J7030; J7040; J7060; Q9967; 97110-GP; G0378

== ENCOUNTER 2020-09-28 13:38 | Emergency (ER) | payer OTHER ==
[~2020-09-28] VITALS: Ht 177.8 cm; Wt 159.0 kg
[~2020-09-28 13:38] MED LIST: ACET325T9 PO; CALC300T5 PO; FURO20TA3 PO; ISOS30TA68 PO; LACT20SO PO; LEVE500T56 PO; OMEP40CA45 PO
[2020-09-28] MEDS ORDERED: levETIRAcetam 500 MG TABLET PO SCH (14:15)
[2020-09-28 14:24] LABS: BASO % 0 % (0-3); EOS # 0.2 x10^3/uL (0.0-0.7); EOS % 9 % (0-3); HEMOGLOBIN 13.6 g/dL (13.0-17.5); LYMPH # 0.7 x10^3/uL (1.0-4.8); LYMPH % 26 % (24-48); MEAN CORPUSCULAR HEMOGLOBIN 32 pg (25-35); MEAN CORPUSCULAR HGB CONC 35 g/dL (31-37); MEAN CORPUSCULAR VOLUME 93 fL (79-100); MONO # 0.3 x10^3/uL (0.0-1.1); MONO % 12 % (0-9); NEUT # 1.3 x10^3/uL (1.8-7.7); NEUT % 53 % (31-73); PLATELET COUNT 58 x10^3/uL (140-400); RED CELL DISTRIBUTION WIDTH 15.4 % (11.5-14.5); WHITE BLOOD COUNT 2.5 x10^3/uL (4.0-11.0)
[2020-09-28 14:49] LABS: CALCIUM 8.9 mg/dL (8.5-10.1); CREATININE 0.9 mg/dL (0.7-1.3); GFR 90.1; POTASSIUM 4.2 mmol/L (3.5-5.1)
[2020-09-28 14:53] LABS: ALBUMIN 3.4 g/dL (3.4-5.0); ALBUMIN/GLOBULIN RATIO 0.9 (1.0-1.7); TOTAL BILIRUBIN 1.6 mg/dL (0.2-1.0); TOTAL PROTEIN 7.2 g/dL (6.4-8.2)
--- NOTE | 2020-09-28 14:55 | RAD ---
STUDY: CT head without contrast INDICATION: Trauma to the head. COMPARISON: 09/28/2020 at 0149 hours. TECHNIQUE: Axial CT imaging through the head without the use of intravenous contrast. Sagittal and co elvin reformats were obtained. One or more of the following individualized dose reduction techniques were utilized for this examinat ion: 1. Automated exposure control 2. Adjustment of the mA and/or kV according to patient size 3. Use of iterative reconstruction technique. FINDINGS: No acute intracranial hemorrhage. Moser-white matter differentiation is maintained. No localized mass effect, midline shift or hydrocephalus. Carotid siphon calcific atherosclerosis. No depressed calvarial fracture. Normally aerated mastoid ai r cells and middle ears. No layering fluid within the paranasal sinuses. Mild scattered mucosal thick ening. IMPRESSION: No acute intracranial abnormality by CT. Electronically signed by: LYSSA GALE MD (09/28/2020 2:53 PM) [id number]
[2020-09-28] MEDS ORDERED: AMMONIA AROMATIC 15% INHALANT AMPUL. INH ONE (15:15)
--- NOTE | 2020-09-28 15:36 | RAD ---
XR CHEST 1V Clinical Indication: Reason: cp Comparison: AP chest September 23, 2020. Findings: The cardiomediastinal silhouette is normal. There is borderline pulmonary vascular congestion, improv ed from prior study. No acute airspace disease. There is no pneumothorax. No pleural effusion is appr eciated. No acute bone abnormality. IMPRESSION: There is borderline pulmonary vascular congestion, improved from prior study. Electronically signed by: Hernando Avilez MD (09/28/2020 3:33 PM) [id number]
--- NOTE | 2020-09-28 16:09 | PHYS DOC ---
Past Medical History Past Medical History: Cancer, Hypertension, Hepatitis Additional Past Medical Histor: CIRRHOSIS, ESPHAGEAL VARICES, HISTORY OF HEP C, LIVER CANCER, PE'S Past Surgical History: Other Additional Past Surgical Histo: ESPHAGEAL BANDS ON Monday09/19/20 COLRAIN Smoking Status: Former Smoker Alcohol Use: None General Adult EDM: Chief Complaint: SEIZURE HPI: HPI: 49-year-old inmate who had just been discharged from hospital room 210, presents to the ed with c/o chest pain and headache/forehead pain after pt collapsed while getting into longterm van, there was concern for some seizure-like activity. Bystanders (hospital security) watched as pt fell forward, arms held in front of him in candle stick position (which caught his fall). Brushed upper left forehea d on edge of van. Pt was "seizing" while face down on the ground, described as shaking or arms and legs which lasted for a few minutes. Pt did not hit his head on the ground. Pt on no AC. EMR was reviewed and patient was seen by Dr. Caraballo while admitted to the hospital. Concern for seizure activity related to patient's liver cirrhosis and cancer. Is on Keppra. Review of Systems: Review of Systems: Constitutional: Denies fever or chills. [] Eyes: Denies change in visual acuity. [] HENT: Denies nasal congestion or sore throat. [] Respiratory: Denies cough or shortness of breath. [] Cardiovascular: Denies syncope or edema. [] GI: Denies abdominal pain, nausea, vomiting, bloody stools or diarrhea. [] : Denies dysuria or hematuria Musculoskeletal: Denies back pain or joint pain. [] Integument: Denies rash or crepitus Neurologic: Denies headache, focal weakness or sensory changes. [] Endocrine: Denies polyuria or polydipsia. [] Lymphatic: Denies swollen glands. [] Psychiatric: Denies depression or anxiety. [] Heart Score: Risk Factors: Risk Factors: DM, Current or recent (<one month) smoker, HTN, HLP, family history of CAD, obesity. Risk Scores: Score 0 - 3: 2.5% MACE over next 6 weeks - Discharge Home Score 4 - 6: 20.3% MACE over next 6 weeks - Admit for Clinical Observation Score 7 - 10: 72.7% MACE over next 6 weeks - Early Invasive Strategies Current Medications: Current Medications Medications (Trade) Dose Ordered Sig/Gina Start Time Stop Time Status Last Admin Dose Admin Ammonia (Aromatic Spirit) (Amoply) 1 each 1X ONCE 09/28/20 15:15 09/28/20 15:16 DC Levetiracetam (Keppra) 500 mg BID 09/28/20 14:15 09/28/20 14:39 500 MG Allergies: Allergies: Allergies Coded Allergies Type Severity Reaction Last Updated Verified ibuprofen Allergy Intermediate 09/23/20 Yes ketorolac Allergy Intermediate 09/23/20 Yes Physical Exam: PE: Constitutional: Well developed, well nourished, no acute distress, non-toxic appearance, GCS15, obese, not post-ictal upon ed arrival HENT: Normocephalic, atraumatic, dirt over upper outer forehead-no hematoma, no toose teeth, tongue lacerations, oral bleeding, no septal hematoma raccoon eyes Eyes: PERRLA, EOMI, conjunctiva normal, no discharge. Neck: Normal range of motion, supple, Cardiovascular: S1/2 present, regular rhythm Lungs & Thorax: Speaking in full sentences, bilateral equal chest rise, no tachypnea or increased work of breathing Abdomen: soft, no tenderness, no urinary or bowel incontinence Skin: Warm, dry, no erythema, no rash. [] Extremities: No tenderness, no cyanosis, no edema Neurologic: Alert and oriented X 3, normal motor function, normal sensory function, no focal deficits noted. [] Psychologic: Affect normal, judgement normal, mood normal. [] Current Patient Data: Labs: Laboratory Tests Test 09/28/20 13:43 09/28/20 14:10 Glucose (Fingerstick) 116 mg/dL (70-99) H White Blood Count 2.5 x10^3/uL (4.0-11.0) L Red Blood Count 4.20 x10^6/uL (4.30-5.70) L Hemoglobin 13.6 g/dL (13.0-17.5) Hematocrit 39.0 % (39.0-53.0) Mean Corpuscular Volume 93 fL (79-100) Mean Corpuscular Hemoglobin 32 pg (25-35) Mean Corpuscular Hemoglobin Concent 35 g/dL (31-37) Red Cell Distribution Width 15.4 % (11.5-14.5) H Platelet Count 58 x10^3/uL (140-400) L Neutrophils (%) (Auto) 53 % (31-73) Lymphocytes (%) (Auto) 26 % (24-48) Monocytes (%) (Auto) 12 % (0-9) H Eosinophils (%) (Auto) 9 % (0-3) H Basophils (%) (Auto) 0 % (0-3) Neutrophils # (Auto) 1.3 x10^3/uL (1.8-7.7) L Lymphocytes # (Auto) 0.7 x10^3/uL (1.0-4.8) L Monocytes # (Auto) 0.3 x10^3/uL (0.0-1.1) Eosinophils # (Auto) 0.2 x10^3/uL (0.0-0.7) Basophils # (Auto) 0.0 x10^3/uL (0.0-0.2) Sodium Level 138 mmol/L (136-145) Potassium Level 4.2 mmol/L (3.5-5.1) Chloride Level 104 mmol/L (98-107) Carbon Dioxide Level 26 mmol/L (21-32) Anion Gap 8 (6-14) Blood Urea Nitrogen 5 mg/dL (8-26) L Creatinine 0.9 mg/dL (0.7-1.3) Estimated GFR (Cockcroft-Gault) 90.1 BUN/Creatinine Ratio 6 (6-20) Glucose Level 103 mg/dL (70-99) H Calcium Level 8.9 mg/dL (8.5-10.1) Total Bilirubin 1.6 mg/dL (0.2-1.0) H Aspartate Amino Transferase (AST) 45 U/L (15-37) H Alanine Aminotransferase (ALT) 35 U/L (16-63) Alkaline Phosphatase 124 U/L (46-116) H Creatine Kinase 337 U/L (39-308) H Troponin I Quantitative < 0.017 ng/mL (0.000-0.055) Total Protein 7.2 g/dL (6.4-8.2) Albumin 3.4 g/dL (3.4-5.0) Albumin/Globulin Ratio 0.9 (1.0-1.7) L Laboratory Tests 09/28/20 14:10 Laboratory Tests 09/28/20 14:10 Vital Signs: Vital Signs Date Time Temp Pulse Resp B/P (MAP) Pulse Ox O2 Delivery O2 Flow Rate FiO2 09/28/20 13:38 98.3 78 22 143/76 (98) 96 Room Air 98.3 EKG: EKG: Sinus rhythm at 80 bpm, no axis deviation, Q-wave in lead III, QTC 467, no ST elevation or ST depression Radiology/Procedures: Radiology/Procedures: IMAGING REPORT Signed PATIENT: KAYDEN HENSONACCOUNT: [id number] : 1970 LOCATION: ER AGE: 49 SEX: M EXAM STATUS: REG ER ORD. PHYSICIAN: AFUA CRESPO DO REASON: hit head PROCEDURE: CT HEAD WO CONTRAST STUDY: CT head without contrast INDICATION: Trauma to the head. COMPARISON: 09/28/2020 at 0149 hours. TECHNIQUE: Axial CT imaging through the head without the use of intravenous contrast. Sagittal and coronal reformats were obtained. One or more of the following individualized dose reduction techniques were utilized for this examination: 1. Automated exposure control 2. Adjustment of the mA and/or kV according to patient size 3. Use of iterative reconstruction technique. FINDINGS: No acute intracranial hemorrhage. Moser-white matter differentiation is maintained. No localized mass effect, midline shift or hydrocephalus. Carotid siphon calcific atherosclerosis. No depressed calvarial fracture. Normally aerated mastoid air cells and middle ears. No layering fluid within the paranasal sinuses. Mild scattered mucosal thickening. IMPRESSION: No acute intracranial abnormality by CT. Electronically signed by: LYSSA GALE MD (09/28/2020 2:53 PM) [id number] DICTATED and SIGNED BY: LYSSA GALE MD DATE: 09/28/20 [id number] 0 IMAGING REPORT Signed PATIENT: KAYDEN HENSONACCOUNT: [id number] : 1970 LOCATION: ER AGE: 49 SEX: M EXAM STATUS: REG ER ORD. PHYSICIAN: AFUA CRESPO DO REASON: cp PROCEDURE: CHEST AP ONLY XR CHEST 1V Clinical Indication: Reason: cp Comparison: AP chest September 23, 2020. Findings: The cardiomediastinal silhouette is normal. There is borderline pulmonary vascular congestion, improved from prior study. No acute airspace disease. There is no pneumothorax. No pleural effusion is appreciated. No acute bone abnormality. IMPRESSION: There is borderline pulmonary vascular congestion, improved from prior study. Electronically signed by: Genesis Avilez MD (09/28/2020 3:33 PM) [id number] DICTATED and SIGNED BY: GENESIS AVILEZ MD DATE: 09/28/20 [id number] 0 Course & Med Decision Making: Course & Med Decision Making Pertinent Labs and Imaging studies reviewed. (See chart for details) I reviewed patient's chart shortly after arrival and I spoke with Dr. Pennington who had just discharged pt-he-did not witness any seizure activity today, suspected seizure-like activity, cleared by neurology. I was called to CT scanner, concern for seizures. Pt with flaccid arms/legs, hits himself with drop arm test. No response to sternal rub. Pt with rapid eye opening/closing. I opened pts' eyes multiple times and pts' eyes were tracking me and he forced his eyelids shut every time. Upon supraorbital notch pressure, pt grimaced and within a minute, pt returned to baseline. CT was then performed. Pt with recollection of having a "seizure." I was called to pts' room for a similar presentation - rapid eye opening/closing. Pt quickly returned to baseline with ammonia inhalant placed under the nose. I informed Dr. Caraballo of these findings and he reported pt was diagnosed with seizures a few years ago but stopped his medication. No record of eeg confirming epileptic seizures. Dr. 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 Pt educated this is not typical epileptic seizure behavior. Labs unremarkable with normal CK. Upon disposition patient with multiple complaints including chronic abdominal pain, left wrist pain (normal wrist exam), headache, back pain, etc. Behavior c/w malingering for hospital stay, to avoid incarceration. Will discharge with strict ED return precautions were given for altered mental status, trauma, tongue lacerations or urinary or bowel incontinence. Encouraged urgent outpatient follow-up with PMD and neurology for nonemergent eeg. Life-threatening processes were considered but are low suspicion at this time, given history, physical exam and ED workup. Pt was educated on all prescription medications and adverse effects. All patient's questions were answered and pt was stable at time of discharge. Life/limb-threatening differential includes but is not limited to, intracranial hemorrhage, diffuse axonal injury, spinal cord syndrome, unstable cervical fracture or SCIWORA, fractures or joint dislocations, neurovascular injuries, organ injury or laceration, pneumothorax, pneumoperitoneum, pericardial tamponade, unstable pelvic fracture, compartment syndrome, flail chest or respiratory distress, burn injury or asphyxiation. I spoken with the patient and her caregivers. I explained the patient's condition, diagnoses and treatment plan based on the information available to me at this time. I have answered the patient and her caregiver's questions and addressed any concerns. The patient and her caregivers have a good understand ing of patient's diagnosis, condition and treatment plan as can be expected at this point. Vital signs have been stable. Patient's condition is stable and appropriate for discharge from the emergency department. Patient will pursue further outpatient evaluation with primary care physician or other designated or consulting physician as outlined in the discharge instructions. The patient and/or caregivers are agreeable to this plan of care and follow-up instructions have been explained in detail. The patient and/or caregivers have received these instructions in written form and have expressed an understanding of the discharge instructions. The patient and/or caregivers are aware that any significant change of condition or worsening of symptoms should prompt immediate return to this or the closest emergency department or call to 911. Wild Disclaimer: Wild Disclaimer: This electronic medical record was generated, in whole or in part, using a voice recognition dictation system. Departure Departure Impression: Primary Impression: Head injury Additional Impressions: Fluttering of eyelid Pseudoseizures Disposition: 01 DC HOME SELF CARE/HOMELESS Condition: STABLE Referrals: NO PCP (PCP) FOLLOW UP WITH FAMILY MEDICINE: Family Medicine Address: [address] [place] [id number] Patient Instructions: Head Injury, Adult, Nonepileptic Seizures Additional Instructions: FOLLOW UP WITH NEUROLOGY: FOR OUTPATIENT EEG [facility] Address: [address], [place] [address] EMERGENCY DEPARTMENT GENERAL DISCHARGE INSTRUCTIONS Thank you for coming to [facility] Emergency Department (ED) today and trusting us with you care. We trust that you had a positive experience in our Emergency Department. If you wish to speak to the department management, you may call the Director at [phone]. YOUR FOLLOW UP INSTRUCTIONS ARE FOLLOWS: 1. Do you have a private Doctor? If you do not have a private doctor, please ask for a resource list of physicians or clinics that may be able to assist you with follow up care. 2. The Emergency Physicain has interpreted your x-rays. The X-Ray specialist will also review them. If there is a change in the findings, you will be notified in 48 hours when at all possible. 3. A lab test or culture has been done, your results will be reviewed and you will be notified if you need a change in treatment. ADDITIONAL INSTRUCTIONS AND INFORMATION: 1. Your care today has been supervised by a physician who is specially trained in emergency care. Many problems require more than one evaluation for a complete diagnosis and treatment. We recommend that you schedule your follow up appointment as recommended to ensure complete treatment of you illness or injury. If you are unable to obtain follow up care and continue to have a problem, or if your condition worsens, we recommend that you return to the ED. 2. We are not able to safely determine your condition over the phone nor are we able to give sound medical advice over the phone. For these safety reasons, if you call for medical advice we will ask you to come to the ED for further evaluation. 3. If you have any questions regarding these discharge instructions please call the ED at [phone]. SAFETY INFORMATION: In the interest of safety, wellness, and injury prevention; we encourage you to wear your sealbelt, if you smoke; quite smoking, and we encourage family to use a protective helmet for bicycling and other sporting events that present an increased risk for head injury. IF YOUR SYMPTOMS WORSEN OR NEW SYMPTOMS DEVELOP, OR YOU HAVE CONCERNS ABOUT YOUR CONDITION; OR IF YOUR CONDITION WORSENS WHILE YOU ARE WAITING FOR YOUR FOLLOW UP APPOINTMENT; EITHER CONTACT YOUR PRIMARY CARE DOCTOR, THE PHYSICIAN WHOSE NAME AND NUMBER YOU WERE GIVEN, OR RETURN TO THE ED IMMEDIATELY. AFUA KWOK DO Sep 28, 2020 16:09
[2020-09-28 18:30] VITALS: BP 138/68
--- NOTE | 2020-09-30 02:10 | EKG ---
[facility] [address] [place] [address] Test Date: 2020-09-28 Test Time: 13:39:00 Pat Name: KAYDEN HENSON Department: Room: Gender: M Disability Liaison Officer: : 1970 Requested By: AFUA CRESPO Order Number: [id number] Reading MD: Measurements Intervals [place] Rate: 80 P: 17 NM: 170 QRS: -5 QRSD: 94 T: 19 QT: 402 QTc: 467 Interpretive Statements SINUS RHYTHM LEFTWARD AXIS QRS(T) CONTOUR ABNORMALITY CONSISTENT WITH INFERIOR INFARCT PROBABLY OLD ABNORMAL ECG RI6.02 No previous ECG available for comparison
[2020-09-30] MEDS ORDERED: OMEP40CA45 PO (16:29)
== END 2020-09-28 18:38 | disposition home or self-care (01) ==
LOC: EEVIPCON 13:38 → ER 13:38
DX: S09.8XXA Other specified injuries of head, initial encounter (principal); R07.89 Other chest pain; R51.9 Headache, unspecified; R56.9 Unspecified convulsions; I10 Essential (primary) hypertension; K75.9 Inflammatory liver disease, unspecified; Z87.891 Personal history of nicotine dependence; Z98.890 Other specified postprocedural states; Z85.9 Personal history of malignant neoplasm, unspecified; W18.39XA Other fall on same level, initial encounter; Y93.89 Activity, other specified; Y92.89 Other specified places as the place of occurrence of the external cause; Y99.8 Other external cause status
CPT/HCPCS: 36415; 70450; 71045; 80053; 82550; 82962; 84484; 85025; 93005; 99285

== ENCOUNTER 2020-09-29 18:43 | Observation (INO) | payer OTHER ==
[~2020-09-29] VITALS: Ht 185.4 cm; Wt 163.0 kg
[~2020-09-29 18:43] MED LIST changes: -OMEP40CA45 PO; +OMEP40CA7 PO
--- NOTE | 2020-09-29 19:11 | ED.ADGEN ---
Past Medical History Past Medical History: Cancer, Hypertension, Hepatitis Additional Past Medical Histor: CIRRHOSIS, ESPHAGEAL VARICES, HISTORY OF HEP C, LIVER CANCER, PE'S Past Surgical History: Other Additional Past Surgical Histo: ESPHAGEAL BANDS ON Monday09/19/20 MELRUDE Smoking Status: Former Smoker Alcohol Use: Sober Drug Use: None General Adult EDM: Chief Complaint: HEMATEMESIS/VOMITING BLOOD HPI: HPI: Patient is a 49 year old male [facility] in by EMS [facility] after hematemesis about hour down to half prior to arrival. Patient states that he threw up approximately 2 Styrofoam cups worth of bright red blood. Denies any melena or blood in his stools. Patient states he was shortly after eating dinner. Patient has a history significant for cirrhosis, liver cancer, esophageal varices (approximately 23-24 banding's). Patient states his last EGD with banding was 3 weeks ago in [place] and there were 2-3 bands placed. He states after that procedure his esophagus has not felt right nursing he was swallowing. Patient states just prior to the bleeding he felt sharp right upper quadrantepigastricsubsternal pain. States he felt a little short of breath and lightheaded when he was vomiting but feels better now. States prior to the vomiting he was feeling fine his baseline. Is not getting treatment for his liver cancer as of now. He was not a candidate for IV chemotherapy. Patient states he has a history of heavy alcohol use and some IV drug use. Had hep C that was treated and cured, unsure if he got from IV drug use or tattoos. He also has a history of hypertension. Review of Systems: Review of Systems: All other systems within normal limits except for as noted in the HPI Current Medications: Current Medications Medications (Trade) Dose Ordered Sig/Gina Start Time Stop Time Status Last Admin Dose Admin Ceftriaxone Sodium (Rocephin) 1 gm 1X ONCE 09/29/20 19:15 09/29/20 19:16 DC 09/29/20 19:15 1 GM Morphine Sulfate (Morphine Sulfate) 4 mg 1X ONCE 09/29/20 19:45 09/29/20 19:46 DC 09/29/20 19:44 4 MG Octreotide Acetate 500 mcg/ Sodium Chloride 101 ml @ 10.1 mls/hr CONT PRN 09/29/20 19:02 09/29/20 19:32 10.1 MLS/HR Octreotide Acetate (SandoSTATIN) 50 mcg 1X ONCE 09/29/20 19:15 09/29/20 19:16 DC 09/29/20 19:34 50 MCG Ondansetron HCl (Zofran) 4 mg 1X ONCE 09/29/20 19:15 09/29/20 19:16 DC 09/29/20 19:32 4 MG Pantoprazole Sodium (PROTONIX VIAL for IV PUSH) 40 mg 1X ONCE 09/29/20 19:15 09/29/20 19:16 DC 09/29/20 19:34 40 MG Pantoprazole Sodium 80 mg/ Sodium Chloride 100 ml @ 10 mls/hr Q10H 09/29/20 19:15 09/29/20 19:33 10 MLS/HR Sodium Chloride 1,000 ml @ 1,000 mls/hr 1X ONCE 09/29/20 19:15 09/29/20 20:14 DC 09/29/20 19:32 1,000 MLS/HR Allergies: Allergies: Allergies Coded Allergies Type Severity Reaction Last Updated Verified ibuprofen Allergy Intermediate 09/23/20 Yes ketorolac Allergy Intermediate 09/23/20 Yes Physical Exam: PE: Constitutional: Well developed, well nourished, no acute distress, non-toxic appearance, morbidly obese [] HENT: Normocephalic, atraumatic, bilateral external ears normal, nose normal. [] Eyes: PERRLA, conjunctiva normal, no discharge. [] Neck: No rigidity, supple, no stridor. [] Cardiovascular: Regular rate and rhythm, brisk cap refill, no pallor [] Lungs & Thorax: Non labored symmetric respirations, no tachypnea or respiratory distress [] Abdomen: Soft, nondistended, epigastric tenderness. Skin: Warm, dry, no erythema, no rash. [] Back: Unremarkable Extremities: No deformities, range of motion grossly intact, no lower extremity edema [] Neurologic: Alert and oriented X 3, no focal deficits noted. [] Psychologic: Affect normal, judgement normal, mood normal. [] Current Patient Data: Labs: Laboratory Tests Test 09/29/20 19:22 09/29/20 20:03 White Blood Count 3.0 x10^3/uL (4.0-11.0) L Red Blood Count 4.23 x10^6/uL (4.30-5.70) L Hemoglobin 13.5 g/dL (13.0-17.5) Hematocrit 39.3 % (39.0-53.0) Mean Corpuscular Volume 93 fL (79-100) Mean Corpuscular Hemoglobin 32 pg (25-35) Mean Corpuscular Hemoglobin Concent 34 g/dL (31-37) Red Cell Distribution Width 15.8 % (11.5-14.5) H Platelet Count 61 x10^3/uL (140-400) L Neutrophils (%) (Auto) 61 % (31-73) Lymphocytes (%) (Auto) 21 % (24-48) L Monocytes (%) (Auto) 11 % (0-9) H Eosinophils (%) (Auto) 6 % (0-3) H Basophils (%) (Auto) 1 % (0-3) Neutrophils # (Auto) 1.9 x10^3/uL (1.8-7.7) Lymphocytes # (Auto) 0.6 x10^3/uL (1.0-4.8) L Monocytes # (Auto) 0.3 x10^3/uL (0.0-1.1) Eosinophils # (Auto) 0.2 x10^3/uL (0.0-0.7) Basophils # (Auto) 0.0 x10^3/uL (0.0-0.2) Prothrombin Time 17.1 SEC (11.7-14.0) H Prothrombin Time INR 1.4 (0.8-1.1) H Sodium Level 141 mmol/L (136-145) Potassium Level 3.7 mmol/L (3.5-5.1) Chloride Level 107 mmol/L (98-107) Carbon Dioxide Level 26 mmol/L (21-32) Anion Gap 8 (6-14) Blood Urea Nitrogen 7 mg/dL (8-26) L Creatinine 0.9 mg/dL (0.7-1.3) Estimated GFR (Cockcroft-Gault) 90.1 BUN/Creatinine Ratio 8 (6-20) Glucose Level 81 mg/dL (70-99) Calcium Level 8.9 mg/dL (8.5-10.1) Magnesium Level 2.0 mg/dL (1.8-2.4) Total Bilirubin 1.3 mg/dL (0.2-1.0) H Aspartate Amino Transferase (AST) 38 U/L (15-37) H Alanine Aminotransferase (ALT) 29 U/L (16-63) Alkaline Phosphatase 116 U/L (46-116) Troponin I Quantitative < 0.017 ng/mL (0.000-0.055) ZH-Wcs-F-Type Natriuretic Peptide 38 pg/mL (0-124) Total Protein 7.4 g/dL (6.4-8.2) Albumin 3.3 g/dL (3.4-5.0) L Albumin/Globulin Ratio 0.8 (1.0-1.7) L Lipase 137 U/L (73-393) Ethyl Alcohol Level < 10 mg/dL (0-10) Lactic Acid Level 1.3 mmol/L (0.4-2.0) Laboratory Tests 09/29/20 19:22 Laboratory Tests 09/29/20 19:22 Vital Signs: Vital Signs Date Time Temp Pulse Resp B/P (MAP) Pulse Ox O2 Delivery O2 Flow Rate FiO2 09/29/20 19:49 66 18 140/94 (109) 95 Room Air 09/29/20 18:56 98.5 98.5 EKG: EKG: Sinus rhythm with left axis deviation. Incomplete right bundle branch block. No ST elevation depression, no ectopy, T wave inversions in lead III [] Heart Score: Risk Factors: Risk Factors: DM, Current or recent (<one month) smoker, HTN, HLP, family history of CAD, obesity. Risk Scores: Score 0 - 3: 2.5% MACE over next 6 weeks - Discharge Home Score 4 - 6: 20.3% MACE over next 6 weeks - Admit for Clinical Observation Score 7 - 10: 72.7% MACE over next 6 weeks - Early Invasive Strategies Radiology/Procedures: Radiology/Procedures: INDICATION: Reason: Hematemesis / Spl. Instructions: / History: COMPARISON: One day prior FINDINGS: Single view of chest obtained. Mild interstitial opacities bilaterally as well as groundglass component which appears increased from prior. Cardiac silhouette is unremarkable. There is some fullness of the pulmonary hilum as well as either a vessel seen on end or calcified nodules at the hilum IMPRESSION: * Mild interstitial and groundglass opacities bilaterally. This can be seen with mild edema or interstitial infiltrate.[] Course & Med Decision Making: Course & Med Decision Making Vital signs normal. No hematemesis emergency department. No change in labs from previous visit. Lab is a platelet count of 61k. However per Kwaku Blatchford bleeding score 2 for known hepatic disease. We will keep in the hospital overnight for observation and trend hemoglobin. [] Dragon Disclaimer: Dragon Disclaimer: This electronic medical record was generated, in whole or in part, using a voice recognition dictation system. Departure Departure Impression: Primary Impression: Upper GI bleed Admitting Physician: AUTUMN Condition: STABLE Referrals: NO PCP (PCP) EDA GARSIA MD Sep 29, 2020 19:11
[2020-09-29] MEDS ORDERED: IV NORMAL SALINE 1000ML BAG 1,000 ML IV ONE (19:15)
[2020-09-29] MEDS ORDERED: PANTOPRAZOLE IV PUSH 40 MG VIAL. IVP ONE (19:15)
[2020-09-29] MEDS ORDERED: OCTREOTIDE 100 MCG/ML VIAL IV ONE (19:15)
[2020-09-29] MEDS ORDERED: cefTRIAXone IV Push 1 GM VIAL. IVP ONE (19:15)
[2020-09-29] MEDS ORDERED: ONDANSETRON PF 4 MG/2 ML VIAL. IVP ONE (19:15)
[2020-09-29 19:29] LABS: BASO % 1 % (0-3); EOS # 0.2 x10^3/uL (0.0-0.7); EOS % 6 % (0-3); HEMATOCRIT 39.3 % (39.0-53.0); HEMOGLOBIN 13.5 g/dL (13.0-17.5); LYMPH # 0.6 x10^3/uL (1.0-4.8); LYMPH % 21 % (24-48); MEAN CORPUSCULAR HEMOGLOBIN 32 pg (25-35); MEAN CORPUSCULAR HGB CONC 34 g/dL (31-37); MEAN CORPUSCULAR VOLUME 93 fL (79-100); MONO # 0.3 x10^3/uL (0.0-1.1); MONO % 11 % (0-9); NEUT # 1.9 x10^3/uL (1.8-7.7); NEUT % 61 % (31-73); PLATELET COUNT 61 x10^3/uL (140-400); RED BLOOD COUNT 4.23 x10^6/uL (4.30-5.70); RED CELL DISTRIBUTION WIDTH 15.8 % (11.5-14.5)
[2020-09-29] MEDS: OCTREOTIDE 500 MCG in IV NORMAL SALINE 100ML 100 ML IV PRN (19:32)
[2020-09-29] MEDS: PANTOPRAZOLE SODIUM IV DRIP 80 MG in IV NORMAL SALINE 100ML 100 ML IV SCH (19:33)
[2020-09-29 19:38] LABS: PROTHROMBIN TIME PATIENT 17.1 SEC (11.7-14.0)
--- NOTE | 2020-09-29 19:39 | RAD ---
INDICATION: Reason: Hematemesis / Spl. Instructions: / History: COMPARISON: One day prior FINDINGS: Single view of chest obtained. Mild interstitial opacities bilaterally as well as groundglass component which appears increased from prior. Cardiac silhouette is unremarkable. There is some fullness of the pulmonary hilum as well as either a vessel seen on end or calcified nodules at the hilum IMPRESSION: * Mild interstitial and groundglass opacities bilaterally. This can be seen with mild edema or inter stitial infiltrate. Electronically signed by: Jose J Felder MD (09/29/2020 7:37 PM) [id number]
[2020-09-29 19:41] LABS: CALCIUM 8.9 mg/dL (8.5-10.1); CREATININE 0.9 mg/dL (0.7-1.3); GFR 90.1; POTASSIUM 3.7 mmol/L (3.5-5.1)
[2020-09-29] MEDS ORDERED: MORPHINE SULFATE 4 MG/ML VIAL. IV ONE (19:45)
[2020-09-29 19:47] LABS: ALBUMIN 3.3 g/dL (3.4-5.0); ALBUMIN/GLOBULIN RATIO 0.8 (1.0-1.7); TOTAL BILIRUBIN 1.3 mg/dL (0.2-1.0); TOTAL PROTEIN 7.4 g/dL (6.4-8.2)
[2020-09-29 20:54] LABS: BILIRUBIN,URINE NEGATIVE (NEG); CLARITY,URINE CLEAR; COLOR,URINE YELLOW; NITRITE,URINE NEGATIVE (NEG); PROTEIN,URINE NEGATIVE (NEG-TRACE)
[2020-09-29] MEDS ORDERED: ONDANSETRON PF 4 MG/2 ML VIAL. IV PRN (21:00)
[2020-09-29 21:01] LABS: AMPHETAMINE/METHAMPHETAMINE NEG (NEG); BACTERIA,URINE 0 /HPF (0-FEW); BARBITURATES NEG (NEG); BENZODIAZEPINES NEG (NEG); CANNABINOIDS NEG (NEG); COCAINE NEG (NEG); METHADONE NEG (NEG); OPIATES POS (NEG); PHENCYCLIDINE NEG (NEG); RBC,URINE 0 /HPF (0-2)
[2020-09-29] MEDS: MORPHINE SULFATE 4 MG/ML VIAL. IV PRN ×2 (21:06→23:32)
[2020-09-29] MEDS: IV NORMAL SALINE 1000ML BAG 1,000 ML IV SCH (21:06)
[2020-09-29 23:00] VITALS: BP 140/82
[2020-09-30] MEDS: levETIRAcetam 500 MG in IV DEXTROSE 5% 100ML 100 ML IV SCH ×2 (00:22→08:34)
--- NOTE | 2020-09-30 01:01 | EKG ---
[facility] [address] [place] [address] Test Date: 2020-09-29 Test Time: 19:19:41 Pat Name: KAYDEN HENSON Department: Room: 526 1 Gender: M Booking Manager: : 1970 Requested By: EDA GARSIA Order Number: [id number] Reading MD: J Luis Carreno Measurements Intervals [place] Rate: 72 P: 28 PA: 164 QRS: -31 QRSD: 104 T: 3 QT: 418 QTc: 459 Interpretive Statements SINUS RHYTHM ABNORMAL LEFT AXIS DEVIATION INCOMPLETE RIGHT BUNDLE BRANCH BLOCK QRS(T) CONTOUR ABNORMALITY CONSIDER ANTEROLATERAL MYOCARDIAL DAMAGE CONSISTENT WITH INFERIOR INFARCT AGE UNDETERMINED ABNORMAL ECG Electronically Signed On 10-06-2020 10:15:56 CONTRACTS OFFICER by J Luis Carreno
[2020-09-30] MEDS: MORPHINE SULFATE 4 MG/ML VIAL. IV PRN ×4 (02:43→15:10)
[2020-09-30 03:00] VITALS: BP 145/85
[2020-09-30] MEDS: PANTOPRAZOLE SODIUM IV DRIP 80 MG in IV NORMAL SALINE 100ML 100 ML IV SCH (03:57)
[2020-09-30] MEDS: OCTREOTIDE 500 MCG in IV NORMAL SALINE 100ML 100 ML IV PRN (03:58)
--- NOTE | 2020-09-30 05:32 | NUR ---
One of the guards in the patient's room, calls, reports patient has been having a seizure since about 529, this scientific technical writer and another rn enters room, patient appears shaky, when asked how he is feeling, he is able to answer, "not too good", this scientific technical writer asks him if he is in pain, he reports that he is, morphine and zofran to be given, monitoring.
[2020-09-30 07:00] VITALS: BP 132/65
[2020-09-30] MEDS: IV NORMAL SALINE 1000ML BAG 1,000 ML IV SCH (07:00)
--- NOTE | 2020-09-30 07:26 | PDOC1 ---
History and Physical Date of Admission Date of Admission 09/30/2020 Identification/Chief Complaint Chief Complaint spitting up blood Source Source: Chart review, Patient History of Present Illness History of Present Illness Mr Doyle is a 49-year-old male with past medical history of cirrhosis with ascites status post multiple paracentesis, hepatitis C that has been treated, multiple EGDs for his esophageal varices admitted with chest pain (central and left), shoulder pain, SOA, nausea, hemoptysis, spitting up red blood, painful swallowing since banding of esophageal varices in [place], [place] on 09/19/20. Work- up did not show any elevated troponins or abnormal EKG changes on his last admission which was 1 day prior to this admission. There seems to be secondary gain since he is incarcerated. Patient whenever he is told that he may be leaving the institution start making up other symptoms he claims that he fell yesterday on the van transport going back to long term and that he injured his left wrist and that he also injured his left samaritan nevertheless upon review of his assessment in the emergency department there is no mention of this complaints. He immediately starts asking about his platelet count which I have assured him is better than 2 days ago. I have explained to him that it is part of his liver dysfunction. He has follow-up with GI in [place] where he had his procedure done. He was seen by GI and it is well documented that the patient certainly wants food more than wanting to get better. The patient claimed to be nauseous on his last admission and please refer to the GI notes for details and when told that he was going to be on a clear liquid diet he said that he was not nauseous anymore. On his last hospital stay he was evaluated for chest pain that occurred 30 minutes prior to arrival on the left side substernal region and radiated to the left neck and left upper extremity. He also had pain in his upper abdominal area in a bandlike position. Endorses associated tingling in his left upper extremity and lower extremities. Patient also did endorsed hemoptysis as well and he was seen by multiple consultants Denies fevers, chills, dysuria or diarrhea or syncope. 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 Past paracentesis (last 1 year ago) and 24 previous banding procedures (a couple places in [place], [place], [place], at [facility], and now [place]). He was noted with seizure like activity, started on keppra. His swallowing improved after 3 days inpatient, advanced diet with no complications. Patient denies headache slurred speech he continues to complain of chest discomfort which most likely is secondary to esophageal spasms, we will discuss with GI whether he would be appropriate to send a barium swallow at this time given that he was banded recently. No further procedures are recommended by our sales and leasing consultant we will certainly discharged the patient. We will do x-rays of both wrists and the skull rule out fractures which I doubt since the patient does not have crepitus has full range of motion in both of his wrists and has not had neurological deficits ever since the incident. He has not had hematemesis during his entire time here nor did he have hematemesis during his ER visit. He has been hemodynamically stable and does not seem to be in any distress. He continues to unfortunately ask for food even though he reports being concerned about his bleeding. Plan of care has been explained in detail all concerns addressed to the best of my abilities Past Medical History Cardiovascular: CAD, HTN, NH, Other Pulmonary: Other CENTRAL NERVOUS SYSTEM: Seizure GI: GERD, GI bleed, Gastritis, Other Hepatobiliary: Cirrhosis, Hep A/B/C, Other Psych: Addictions Past Surgical History Past Surgical History: Other Family History Family History: No Significant Social History Smoke: No ALCOHOL: none Drugs: None Current Medications Current Medications Current Medications Medications (Trade) Dose Ordered Sig/Gina Start Time Stop Time Status Last Admin Dose Admin Ceftriaxone Sodium (Rocephin) 1 gm 1X ONCE 09/29/20 19:15 09/29/20 19:16 DC 09/29/20 19:15 1 GM Levetiracetam 500 mg/Dextrose 105 ml @ 420 mls/hr Q12HR 09/29/20 23:30 09/30/20 00:22 420 MLS/HR Morphine Sulfate (Morphine Sulfate) 4 mg PRN Q2HR PRN 09/29/20 21:00 09/30/20 20:59 09/30/20 05:39 4 MG Octreotide Acetate 500 mcg/ Sodium Chloride 101 ml @ 10.1 mls/hr CONT PRN 09/29/20 19:02 09/30/20 03:58 10.1 MLS/HR Octreotide Acetate (SandoSTATIN) 50 mcg 1X ONCE 09/29/20 19:15 09/29/20 19:16 DC 09/29/20 19:34 50 MCG Ondansetron HCl (Zofran) 4 mg PRN Q8HRS PRN 09/29/20 21:00 09/30/20 20:59 09/30/20 05:39 4 MG Pantoprazole Sodium (PROTONIX VIAL for IV PUSH) 40 mg 1X ONCE 09/29/20 19:15 09/29/20 19:16 DC 09/29/20 19:34 40 MG Pantoprazole Sodium 80 mg/ Sodium Chloride 100 ml @ 10 mls/hr Q10H 09/29/20 19:15 10/02/20 19:14 09/30/20 03:57 10 MLS/HR Sodium Chloride 1,000 ml @ 100 mls/hr Q10H 09/29/20 21:00 09/30/20 20:59 09/29/20 21:06 100 MLS/HR Allergies Allergies Allergies Coded Allergies Type Severity Reaction Last Updated Verified ibuprofen Allergy Intermediate 09/23/20 Yes ketorolac Allergy Intermediate 09/23/20 Yes ROS Review of System CONSTITUTIONAL: No fever or chills EYES: No recent changes SKIN: No rash or itching CARDIOVASCULAR: No chest pain, syncope, palpitations, or edema RESPIRATORY: No SOB or cough GASTROINTESTINAL: No nausea, vomiting or abdominal pain NEUROLOGICAL: No headaches or weakness ENDOCRINE: No cold or heat intolerance GENITOURINARY: No urgency or frequency of urination MUSCULOSKELETAL: No back pain or joint pain LYMPHATICS: No enlarged lymph nodes PSYCHIATRIC: No anxiety or depression Physical Exam Physical Exam GEN: No apparent distress. Alert and oriented HEENT: Normal cephalic, atraumatic, external auditory canals are patent. Mucous membranes are moist EYES: Extraocular muscles are intact, pupil are equally round and reactive to light and accommodation. Conjunctive does not appear to be pale MUSCULOSKELETAL: Well developed , well nourished, good range of motion ENDOCRINE: No thyromegaly was palpated LYMPHATICS: No cervical chain or axillary nodes were noted HEMATOPOIETIC: No bruising NECK: Supple, no JVD, no thyromegaly was noted LUNGS: Clear to auscultation in all lung restrepo without rhonchi or wheezing HEART: RRR, S!, S2 present. Peripheral pulses intact, no obvious murmurs noted ABDOMEN: Soft, nontender. Positive bowel sounds, no organomegaly, normal bowel sounds EXTREMITIES: Without clubbing, cyanosis, or edema. Pedal pulses intact. Negative Homans sign NEUROLOGIC: Normal speech and tone. A&O x 3, moves all extremities, no obvious focal deficits PSYCHIATRIC: Normal affect, normal mood. Stable SKIN: No ulcerations or rashes, good skin turgor, no jaundice VASCULAR: Good capillary refill, neurovascular bundle appears to be intact Vitals Vitals Vital Signs Date Time Temp Pulse Resp B/P (MAP) Pulse Ox O2 Delivery O2 Flow Rate FiO2 09/30/20 05:39 22 Room Air 09/30/20 03:00 98.3 69 145/85 (105) 95 98.3 Labs Labs Laboratory Tests Test 09/29/20 19:22 09/29/20 20:03 09/29/20 20:40 09/30/20 00:05 White Blood Count 3.0 x10^3/uL (4.0-11.0) Red Blood Count 4.23 x10^6/uL (4.30-5.70) Hemoglobin 13.5 g/dL (13.0-17.5) Hematocrit 39.3 % (39.0-53.0) Mean Corpuscular Volume 93 fL (79-100) Mean Corpuscular Hemoglobin 32 pg (25-35) Mean Corpuscular Hemoglobin Concent 34 g/dL (31-37) Red Cell Distribution Width 15.8 % (11.5-14.5) Platelet Count 61 x10^3/uL (140-400) Neutrophils (%) (Auto) 61 % (31-73) Lymphocytes (%) (Auto) 21 % (24-48) Monocytes (%) (Auto) 11 % (0-9) Eosinophils (%) (Auto) 6 % (0-3) Basophils (%) (Auto) 1 % (0-3) Neutrophils # (Auto) 1.9 x10^3/uL (1.8-7.7) Lymphocytes # (Auto) 0.6 x10^3/uL (1.0-4.8) Monocytes # (Auto) 0.3 x10^3/uL (0.0-1.1) Eosinophils # (Auto) 0.2 x10^3/uL (0.0-0.7) Basophils # (Auto) 0.0 x10^3/uL (0.0-0.2) Prothrombin Time 17.1 SEC (11.7-14.0) Prothromb Time International Ratio 1.4 (0.8-1.1) Sodium Level 141 mmol/L (136-145) Potassium Level 3.7 mmol/L (3.5-5.1) Chloride Level 107 mmol/L (98-107) Carbon Dioxide Level 26 mmol/L (21-32) Anion Gap 8 (6-14) Blood Urea Nitrogen 7 mg/dL (8-26) Creatinine 0.9 mg/dL (0.7-1.3) Estimated GFR (Cockcroft-Gault) 90.1 BUN/Creatinine Ratio 8 (6-20) Glucose Level 81 mg/dL (70-99) Calcium Level 8.9 mg/dL (8.5-10.1) Magnesium Level 2.0 mg/dL (1.8-2.4) Total Bilirubin 1.3 mg/dL (0.2-1.0) Aspartate Amino Transf (AST/SGOT) 38 U/L (15-37) Alanine Aminotransferase (ALT/SGPT) 29 U/L (16-63) Alkaline Phosphatase 116 U/L (46-116) Troponin I Quantitative < 0.017 ng/mL (0.000-0.055) < 0.017 ng/mL (0.000-0.055) RP-[id number]-Type Natriuretic Peptide 38 pg/mL (0-124) Total Protein 7.4 g/dL (6.4-8.2) Albumin 3.3 g/dL (3.4-5.0) Albumin/Globulin Ratio 0.8 (1.0-1.7) Lipase 137 U/L (73-393) Ethyl Alcohol Level < 10 mg/dL (0-10) Lactic Acid Level 1.3 mmol/L (0.4-2.0) Urine Collection Type Unknown Urine Color Yellow Urine Clarity Clear Urine pH 7.0 (<5.0-8.0) Urine Specific [place] 1.020 (1.000-1.030) Urine Protein Negative mg/dL (NEG-TRACE) Urine Glucose (UA) Negative mg/dL (NEG) Urine Ketones (Stick) Negative mg/dL (NEG) Urine Blood Negative (NEG) Urine Nitrite Negative (NEG) Urine Bilirubin Negative (NEG) Urine Urobilinogen Dipstick 1.0 mg/dL (0.2 mg/dL) Urine Leukocyte Esterase Negative (NEG) Urine RBC 0 /HPF (0-2) Urine WBC 1-4 /HPF (0-4) Urine Squamous Epithelial Cells Few /LPF Urine Bacteria 0 /HPF (0-FEW) Urine Mucus Slight /LPF Urine Opiates Screen Pos (NEG) Urine Methadone Screen Neg (NEG) Urine Barbiturates Neg (NEG) Urine Phencyclidine Screen Neg (NEG) Urine Amphetamine/Methamphetamine Neg (NEG) Urine Benzodiazepines Screen Neg (NEG) Urine Cocaine Screen Neg (NEG) Urine Cannabinoids Screen Neg (NEG) Urine Ethyl Alcohol Neg (NEG) Laboratory Tests Test 09/29/20 19:22 09/29/20 20:03 09/29/20 20:40 09/30/20 00:05 White Blood Count 3.0 x10^3/uL (4.0-11.0) Red Blood Count 4.23 x10^6/uL (4.30-5.70) Hemoglobin 13.5 g/dL (13.0-17.5) Hematocrit 39.3 % (39.0-53.0) Mean Corpuscular Volume 93 fL (79-100) Mean Corpuscular Hemoglobin 32 pg (25-35) Mean Corpuscular Hemoglobin Concent 34 g/dL (31-37) Red Cell Distribution Width 15.8 % (11.5-14.5) Platelet Count 61 x10^3/uL (140-400) Neutrophils (%) (Auto) 61 % (31-73) Lymphocytes (%) (Auto) 21 % (24-48) Monocytes (%) (Auto) 11 % (0-9) Eosinophils (%) (Auto) 6 % (0-3) Basophils (%) (Auto) 1 % (0-3) Neutrophils # (Auto) 1.9 x10^3/uL (1.8-7.7) Lymphocytes # (Auto) 0.6 x10^3/uL (1.0-4.8) Monocytes # (Auto) 0.3 x10^3/uL (0.0-1.1) Eosinophils # (Auto) 0.2 x10^3/uL (0.0-0.7) Basophils # (Auto) 0.0 x10^3/uL (0.0-0.2) Prothrombin Time 17.1 SEC (11.7-14.0) Prothromb Time International Ratio 1.4 (0.8-1.1) Sodium Level 141 mmol/L (136-145) Potassium Level 3.7 mmol/L (3.5-5.1) Chloride Level 107 mmol/L (98-107) Carbon Dioxide Level 26 mmol/L (21-32) Anion Gap 8 (6-14) Blood Urea Nitrogen 7 mg/dL (8-26) Creatinine 0.9 mg/dL (0.7-1.3) Estimated GFR (Cockcroft-Gault) 90.1 BUN/Creatinine Ratio 8 (6-20) Glucose Level 81 mg/dL (70-99) Calcium Level 8.9 mg/dL (8.5-10.1) Magnesium Level 2.0 mg/dL (1.8-2.4) Total Bilirubin 1.3 mg/dL (0.2-1.0) Aspartate Amino Transf (AST/SGOT) 38 U/L (15-37) Alanine Aminotransferase (ALT/SGPT) 29 U/L (16-63) Alkaline Phosphatase 116 U/L (46-116) Troponin I Quantitative < 0.017 ng/mL (0.000-0.055) < 0.017 ng/mL (0.000-0.055) [id number]-Bvx-H-Type Natriuretic Peptide 38 pg/mL (0-124) Total Protein 7.4 g/dL (6.4-8.2) Albumin 3.3 g/dL (3.4-5.0) Albumin/Globulin Ratio 0.8 (1.0-1.7) Lipase 137 U/L (73-393) Ethyl Alcohol Level < 10 mg/dL (0-10) Lactic Acid Level 1.3 mmol/L (0.4-2.0) Urine Collection Type Unknown Urine Color Yellow Urine Clarity Clear Urine pH 7.0 (<5.0-8.0) Urine Specific [place] 1.020 (1.000-1.030) Urine Protein Negative mg/dL (NEG-TRACE) Urine Glucose (UA) Negative mg/dL (NEG) Urine Ketones (Stick) Negative mg/dL (NEG) Urine Blood Negative (NEG) Urine Nitrite Negative (NEG) Urine Bilirubin Negative (NEG) Urine Urobilinogen Dipstick 1.0 mg/dL (0.2 mg/dL) Urine Leukocyte Esterase Negative (NEG) Urine RBC 0 /HPF (0-2) Urine WBC 1-4 /HPF (0-4) Urine Squamous Epithelial Cells Few /LPF Urine Bacteria 0 /HPF (0-FEW) Urine Mucus Slight /LPF Urine Opiates Screen Pos (NEG) Urine Methadone Screen Neg (NEG) Urine Barbiturates Neg (NEG) Urine Phencyclidine Screen Neg (NEG) Urine Amphetamine/Methamphetamine Neg (NEG) Urine Benzodiazepines Screen Neg (NEG) Urine Cocaine Screen Neg (NEG) Urine Cannabinoids Screen Neg (NEG) Urine Ethyl Alcohol Neg (NEG) VTE Prophylaxis Ordered VTE Prophylaxis Devices: Yes VTE Pharmacological Prophylaxi: No Assessment/Plan Assessment/Plan Reported hematemesis, without evidence of acute bleeding and no signs of anemia on laboratory data Thrombocytopenia improved from last admission secondary to liver disease Chronic liver disease secondary to the above Chest pain, possible odynophagia, esophageal spasm Cirrhosis with ascites, meld score of 13 - due to hep C Esophageal varices, status post recent banding 09/19/2020 in [place] Morbid obesity Pancytopenia, likely due to liver disease and hepatitis Hepatitis C positive - negative PCR on 09/25/20 Severe protein malnutrition Pancytopenia, likely secondary to cirrhosis with associated splenomegaly History of variceal bleeding Plan: Resume home medications Continue monitoring for bleeding We will check CBC this morning We will order procalcitonin to rule out infectious process Imaging studies to rule out fractures If all work-up is negative he will be returning to his long term later in the day. We will request records from GI in [place] DVT prophylaxis with SCDs Justifications for Admission Other Justification STEVE COVARRUBIAS MD Sep 30, 2020 07:26
[2020-09-30 08:30] LABS: BASO % 1 % (0-3); EOS # 0.2 x10^3/uL (0.0-0.7); EOS % 8 % (0-3); HEMATOCRIT 35.6 % (39.0-53.0); HEMOGLOBIN 12.3 g/dL (13.0-17.5); LYMPH # 0.8 x10^3/uL (1.0-4.8); LYMPH % 33 % (24-48); MEAN CORPUSCULAR HEMOGLOBIN 32 pg (25-35); MEAN CORPUSCULAR HGB CONC 35 g/dL (31-37); MEAN CORPUSCULAR VOLUME 94 fL (79-100); MONO # 0.3 x10^3/uL (0.0-1.1); MONO % 12 % (0-9); NEUT # 1.1 x10^3/uL (1.8-7.7); NEUT % 46 % (31-73); PLATELET COUNT 53 x10^3/uL (140-400); RED BLOOD COUNT 3.81 x10^6/uL (4.30-5.70); RED CELL DISTRIBUTION WIDTH 15.6 % (11.5-14.5); WHITE BLOOD COUNT 2.3 x10^3/uL (4.0-11.0)
[2020-09-30 08:51] LABS: ALBUMIN 2.8 g/dL (3.4-5.0); ALBUMIN/GLOBULIN RATIO 0.8 (1.0-1.7); CALCIUM 8.7 mg/dL (8.5-10.1); GFR 79.8; POTASSIUM 3.9 mmol/L (3.5-5.1); TOTAL BILIRUBIN 1.8 mg/dL (0.2-1.0); TOTAL PROTEIN 6.5 g/dL (6.4-8.2)
[2020-09-30 10:47] VITALS: BP 132/65
[2020-09-30] MEDS ORDERED: BARIUM SULFATE 60% 355 ML SUSP PO ONE (11:00)
[2020-09-30] MEDS ORDERED: BARIUM SULFATE 340 GM SUSPENSION. PO ONE (11:00)
[2020-09-30] MEDS ORDERED: SIMETHICONE/SOD BICARB/CITRIC ACID PACKET. PO ONE (11:00)
--- NOTE | 2020-09-30 14:33 | RAD ---
EXAM: 3 views of both wrists DATE: 09/30/2020 9:19 AM INDICATION: Reason: fall / Spl. Instructions: / History: COMPARISON: No Prior FINDINGS: No acute fracture or dislocation. Joint spaces are preserved without significant degenerative/prolife rative change. No significant soft tissue swelling. IMPRESSION: No acute fracture or dislocation. Electronically signed by: Basim Cuevas MD (09/30/2020 2:30 PM) [id number]
[2020-09-30 15:00] VITALS: BP 129/66
--- NOTE | 2020-09-30 15:39 | RAD ---
Skull 2 views INDICATION: Fall COMPARISON: None. FINDINGS: There is no evidence of a skull fracture. Alignment of the cervical spine in the visualized portion i s unremarkable. Paranasal sinuses are well aerated. Soft tissues unremarkable for patient body habitu s. IMPRESSION: Normal skull series. No fracture. EXAM: XR SKULL 1-3 VIEWS, DG VIDEO SWALLOW STUDY, XR CHEST 1V INDICATION: Reason: fall / Spl. Instructions: / History: . TECHNIQUE: Single view COMPARISON: None FINDINGS: The heart size is normal. The great vessels appear unremarkable. There is no hilar or mediastinal mass. The lungs show mild hypoventilatory changes with prominence of the pulmonary interstitium.. There is no pleural effusion or pneumothorax. There are no significant osseous abnormalities. IMPRESSION: Hypoventilatory chest showing mild prominence of the pulmonary interstitium. This could reflect pulmo nary fluid overload. PROCEDURE: Barium SWALLOW STUDY STUDY DATE: 09/30/2020 FLUOROSCOPY TIME: 1.0 minutes. Number of Images: 14 CLINICAL INDICATION / HISTORY: Reason: fall / Spl. Instructions: / History: . TECHNIQUE: Supine and LPO and PA imaging of the thoracic esophagus during ingestion of thick and thin barium was performed, after initial administration of effervescent crystals. Due to the patient's de bilitated condition, he was unable to stand up for upright imaging. COMPARISON: Chest x-ray earlier the same day FINDINGS: Esophagram study was performed which showed normal anatomy and appearance of the esophagus and gastroesophageal junction. No evidence of gastroesophageal reflux or hiatal hernia. Provocative t esting for gastroesophageal reflux was not performed. There was note of normal primary stripping wave . Close to the end of the examination, patient complained of severe chest discomfort and ended up hav ing an episode of emesis which further exacerbated his discomfort. This abated and he was transferred in stable condition back to his inpatient floor for further care and management. IMPRESSION: Morphologically normal esophagogram. Patient did experience an episode of emesis shortly after study completion. Electronically signed by: Everton Mora MD (09/30/2020 3:37 PM) [id number]
[2020-09-30] MEDS ORDERED: OMEP40CA7 PO (16:29)
--- NOTE | 2020-09-30 16:33 | PDOC3 ---
Discharge Summary Visit Information Date of Admission: Sep 30, 2020 Date of Discharge: Sep 30, 2020 Admitting Diagnosis Comment: Hematemesis Final Diagnosis Reported hematemesis, without evidence of acute bleeding and no signs of anemia on laboratory data Thrombocytopenia improved from last admission secondary to liver disease Chronic liver disease secondary to the above Chest pain, possible odynophagia, esophageal spasm Cirrhosis with ascites, meld score of 13 - due to hep C Esophageal varices, status post recent banding 09/19/2020 in [place] Morbid obesity Pancytopenia, likely due to liver disease and hepatitis Hepatitis C positive - negative PCR on 09/25/20 Severe protein malnutrition Pancytopenia, likely secondary to cirrhosis with associated splenomegaly History of variceal bleeding Brief Hospital Course Allergies Allergies Coded Allergies Type Severity Reaction Last Updated Verified ibuprofen Allergy Intermediate 09/23/20 Yes ketorolac Allergy Intermediate 09/23/20 Yes Vital Signs Vital Signs Date Time Temp Pulse Resp B/P (MAP) Pulse Ox O2 Delivery O2 Flow Rate FiO2 09/30/20 15:10 Room Air 09/30/20 15:00 98.5 80 18 129/66 (87) 92 98.5 Lab Results Laboratory Tests Test 09/29/20 19:22 09/29/20 20:03 09/29/20 20:40 09/30/20 00:05 White Blood Count 3.0 x10^3/uL (4.0-11.0) Red Blood Count 4.23 x10^6/uL (4.30-5.70) Hemoglobin 13.5 g/dL (13.0-17.5) Hematocrit 39.3 % (39.0-53.0) Mean Corpuscular Volume 93 fL (79-100) Mean Corpuscular Hemoglobin 32 pg (25-35) Mean Corpuscular Hemoglobin Concent 34 g/dL (31-37) Red Cell Distribution Width 15.8 % (11.5-14.5) Platelet Count 61 x10^3/uL (140-400) Neutrophils (%) (Auto) 61 % (31-73) Lymphocytes (%) (Auto) 21 % (24-48) Monocytes (%) (Auto) 11 % (0-9) Eosinophils (%) (Auto) 6 % (0-3) Basophils (%) (Auto) 1 % (0-3) Neutrophils # (Auto) 1.9 x10^3/uL (1.8-7.7) Lymphocytes # (Auto) 0.6 x10^3/uL (1.0-4.8) Monocytes # (Auto) 0.3 x10^3/uL (0.0-1.1) Eosinophils # (Auto) 0.2 x10^3/uL (0.0-0.7) Basophils # (Auto) 0.0 x10^3/uL (0.0-0.2) Prothrombin Time 17.1 SEC (11.7-14.0) Prothromb Time International Ratio 1.4 (0.8-1.1) Sodium Level 141 mmol/L (136-145) Potassium Level 3.7 mmol/L (3.5-5.1) Chloride Level 107 mmol/L (98-107) Carbon Dioxide Level 26 mmol/L (21-32) Anion Gap 8 (6-14) Blood Urea Nitrogen 7 mg/dL (8-26) Creatinine 0.9 mg/dL (0.7-1.3) Estimated GFR (Cockcroft-Gault) 90.1 BUN/Creatinine Ratio 8 (6-20) Glucose Level 81 mg/dL (70-99) Calcium Level 8.9 mg/dL (8.5-10.1) Magnesium Level 2.0 mg/dL (1.8-2.4) Total Bilirubin 1.3 mg/dL (0.2-1.0) Aspartate Amino Transf (AST/SGOT) 38 U/L (15-37) Alanine Aminotransferase (ALT/SGPT) 29 U/L (16-63) Alkaline Phosphatase 116 U/L (46-116) Troponin I Quantitative < 0.017 ng/mL (0.000-0.055) < 0.017 ng/mL (0.000-0.055) IM-Nve-V-Type Natriuretic Peptide 38 pg/mL (0-124) Total Protein 7.4 g/dL (6.4-8.2) Albumin 3.3 g/dL (3.4-5.0) Albumin/Globulin Ratio 0.8 (1.0-1.7) Lipase 137 U/L (73-393) Ethyl Alcohol Level < 10 mg/dL (0-10) Lactic Acid Level 1.3 mmol/L (0.4-2.0) Urine Collection Type Unknown Urine Color Yellow Urine Clarity Clear Urine pH 7.0 (<5.0-8.0) Urine Specific [place] 1.020 (1.000-1.030) Urine Protein Negative mg/dL (NEG-TRACE) Urine Glucose (UA) Negative mg/dL (NEG) Urine Ketones (Stick) Negative mg/dL (NEG) Urine Blood Negative (NEG) Urine Nitrite Negative (NEG) Urine Bilirubin Negative (NEG) Urine Urobilinogen Dipstick 1.0 mg/dL (0.2 mg/dL) Urine Leukocyte Esterase Negative (NEG) Urine RBC 0 /HPF (0-2) Urine WBC 1-4 /HPF (0-4) Urine Squamous Epithelial Cells Few /LPF Urine Bacteria 0 /HPF (0-FEW) Urine Mucus Slight /LPF Urine Opiates Screen Pos (NEG) Urine Methadone Screen Neg (NEG) Urine Barbiturates Neg (NEG) Urine Phencyclidine Screen Neg (NEG) Urine Amphetamine/Methamphetamine Neg (NEG) Urine Benzodiazepines Screen Neg (NEG) Urine Cocaine Screen Neg (NEG) Urine Cannabinoids Screen Neg (NEG) Urine Ethyl Alcohol Neg (NEG) Test 09/30/20 07:58 White Blood Count 2.3 x10^3/uL (4.0-11.0) Red Blood Count 3.81 x10^6/uL (4.30-5.70) Hemoglobin 12.3 g/dL (13.0-17.5) Hematocrit 35.6 % (39.0-53.0) Mean Corpuscular Volume 94 fL (79-100) Mean Corpuscular Hemoglobin 32 pg (25-35) Mean Corpuscular Hemoglobin Concent 35 g/dL (31-37) Red Cell Distribution Width 15.6 % (11.5-14.5) Platelet Count 53 x10^3/uL (140-400) Neutrophils (%) (Auto) 46 % (31-73) Lymphocytes (%) (Auto) 33 % (24-48) Monocytes (%) (Auto) 12 % (0-9) Eosinophils (%) (Auto) 8 % (0-3) Basophils (%) (Auto) 1 % (0-3) Neutrophils # (Auto) 1.1 x10^3/uL (1.8-7.7) Lymphocytes # (Auto) 0.8 x10^3/uL (1.0-4.8) Monocytes # (Auto) 0.3 x10^3/uL (0.0-1.1) Eosinophils # (Auto) 0.2 x10^3/uL (0.0-0.7) Basophils # (Auto) 0.0 x10^3/uL (0.0-0.2) Sodium Level 141 mmol/L (136-145) Potassium Level 3.9 mmol/L (3.5-5.1) Chloride Level 107 mmol/L (98-107) Carbon Dioxide Level 24 mmol/L (21-32) Anion Gap 10 (6-14) Blood Urea Nitrogen 7 mg/dL (8-26) Creatinine 1.0 mg/dL (0.7-1.3) Estimated GFR (Cockcroft-Gault) 79.8 BUN/Creatinine Ratio 7 (6-20) Glucose Level 101 mg/dL (70-99) Calcium Level 8.7 mg/dL (8.5-10.1) Total Bilirubin 1.8 mg/dL (0.2-1.0) Aspartate Amino Transf (AST/SGOT) 38 U/L (15-37) Alanine Aminotransferase (ALT/SGPT) 28 U/L (16-63) Alkaline Phosphatase 85 U/L (46-116) Total Protein 6.5 g/dL (6.4-8.2) Albumin 2.8 g/dL (3.4-5.0) Albumin/Globulin Ratio 0.8 (1.0-1.7) Procalcitonin < 0.10 ng/mL (0.00-0.10) Laboratory Tests Test 09/29/20 19:22 09/29/20 20:03 09/29/20 20:40 09/30/20 00:05 White Blood Count 3.0 x10^3/uL (4.0-11.0) Red Blood Count 4.23 x10^6/uL (4.30-5.70) Hemoglobin 13.5 g/dL (13.0-17.5) Hematocrit 39.3 % (39.0-53.0) Mean Corpuscular Volume 93 fL (79-100) Mean Corpuscular Hemoglobin 32 pg (25-35) Mean Corpuscular Hemoglobin Concent 34 g/dL (31-37) Red Cell Distribution Width 15.8 % (11.5-14.5) Platelet Count 61 x10^3/uL (140-400) Neutrophils (%) (Auto) 61 % (31-73) Lymphocytes (%) (Auto) 21 % (24-48) Monocytes (%) (Auto) 11 % (0-9) Eosinophils (%) (Auto) 6 % (0-3) Basophils (%) (Auto) 1 % (0-3) Neutrophils # (Auto) 1.9 x10^3/uL (1.8-7.7) Lymphocytes # (Auto) 0.6 x10^3/uL (1.0-4.8) Monocytes # (Auto) 0.3 x10^3/uL (0.0-1.1) Eosinophils # (Auto) 0.2 x10^3/uL (0.0-0.7) Basophils # (Auto) 0.0 x10^3/uL (0.0-0.2) Prothrombin Time 17.1 SEC (11.7-14.0) Prothromb Time International Ratio 1.4 (0.8-1.1) Sodium Level 141 mmol/L (136-145) Potassium Level 3.7 mmol/L (3.5-5.1) Chloride Level 107 mmol/L (98-107) Carbon Dioxide Level 26 mmol/L (21-32) Anion Gap 8 (6-14) Blood Urea Nitrogen 7 mg/dL (8-26) Creatinine 0.9 mg/dL (0.7-1.3) Estimated GFR (Cockcroft-Gault) 90.1 BUN/Creatinine Ratio 8 (6-20) Glucose Level 81 mg/dL (70-99) Calcium Level 8.9 mg/dL (8.5-10.1) Magnesium Level 2.0 mg/dL (1.8-2.4) Total Bilirubin 1.3 mg/dL (0.2-1.0) Aspartate Amino Transf (AST/SGOT) 38 U/L (15-37) Alanine Aminotransferase (ALT/SGPT) 29 U/L (16-63) Alkaline Phosphatase 116 U/L (46-116) Troponin I Quantitative < 0.017 ng/mL (0.000-0.055) < 0.017 ng/mL (0.000-0.055) RX-Zqs-[id number]-Type Natriuretic Peptide 38 pg/mL (0-124) Total Protein 7.4 g/dL (6.4-8.2) Albumin 3.3 g/dL (3.4-5.0) Albumin/Globulin Ratio 0.8 (1.0-1.7) Lipase 137 U/L (73-393) Ethyl Alcohol Level < 10 mg/dL (0-10) Lactic Acid Level 1.3 mmol/L (0.4-2.0) Urine Collection Type Unknown Urine Color Yellow Urine Clarity Clear Urine pH 7.0 (<5.0-8.0) Urine Specific [place] 1.020 (1.000-1.030) Urine Protein Negative mg/dL (NEG-TRACE) Urine Glucose (UA) Negative mg/dL (NEG) Urine Ketones (Stick) Negative mg/dL (NEG) Urine Blood Negative (NEG) Urine Nitrite Negative (NEG) Urine Bilirubin Negative (NEG) Urine Urobilinogen Dipstick 1.0 mg/dL (0.2 mg/dL) Urine Leukocyte Esterase Negative (NEG) Urine RBC 0 /HPF (0-2) Urine WBC 1-4 /HPF (0-4) Urine Squamous Epithelial Cells Few /LPF Urine Bacteria 0 /HPF (0-FEW) Urine Mucus Slight /LPF Urine Opiates Screen Pos (NEG) Urine Methadone Screen Neg (NEG) Urine Barbiturates Neg (NEG) Urine Phencyclidine Screen Neg (NEG) Urine Amphetamine/Methamphetamine Neg (NEG) Urine Benzodiazepines Screen Neg (NEG) Urine Cocaine Screen Neg (NEG) Urine Cannabinoids Screen Neg (NEG) Urine Ethyl Alcohol Neg (NEG) Test 09/30/20 07:58 White Blood Count 2.3 x10^3/uL (4.0-11.0) Red Blood Count 3.81 x10^6/uL (4.30-5.70) Hemoglobin 12.3 g/dL (13.0-17.5) Hematocrit 35.6 % (39.0-53.0) Mean Corpuscular Volume 94 fL (79-100) Mean Corpuscular Hemoglobin 32 pg (25-35) Mean Corpuscular Hemoglobin Concent 35 g/dL (31-37) Red Cell Distribution Width 15.6 % (11.5-14.5) Platelet Count 53 x10^3/uL (140-400) Neutrophils (%) (Auto) 46 % (31-73) Lymphocytes (%) (Auto) 33 % (24-48) Monocytes (%) (Auto) 12 % (0-9) Eosinophils (%) (Auto) 8 % (0-3) Basophils (%) (Auto) 1 % (0-3) Neutrophils # (Auto) 1.1 x10^3/uL (1.8-7.7) Lymphocytes # (Auto) 0.8 x10^3/uL (1.0-4.8) Monocytes # (Auto) 0.3 x10^3/uL (0.0-1.1) Eosinophils # (Auto) 0.2 x10^3/uL (0.0-0.7) Basophils # (Auto) 0.0 x10^3/uL (0.0-0.2) Sodium Level 141 mmol/L (136-145) Potassium Level 3.9 mmol/L (3.5-5.1) Chloride Level 107 mmol/L (98-107) Carbon Dioxide Level 24 mmol/L (21-32) Anion Gap 10 (6-14) Blood Urea Nitrogen 7 mg/dL (8-26) Creatinine 1.0 mg/dL (0.7-1.3) Estimated GFR (Cockcroft-Gault) 79.8 BUN/Creatinine Ratio 7 (6-20) Glucose Level 101 mg/dL (70-99) Calcium Level 8.7 mg/dL (8.5-10.1) Total Bilirubin 1.8 mg/dL (0.2-1.0) Aspartate Amino Transf (AST/SGOT) 38 U/L (15-37) Alanine Aminotransferase (ALT/SGPT) 28 U/L (16-63) Alkaline Phosphatase 85 U/L (46-116) Total Protein 6.5 g/dL (6.4-8.2) Albumin 2.8 g/dL (3.4-5.0) Albumin/Globulin Ratio 0.8 (1.0-1.7) Procalcitonin < 0.10 ng/mL (0.00-0.10) Brief Hospital Course Mr Doyle is a 49-year-old male with past medical history of cirrhosis with ascites status post multiple paracentesis, hepatitis C that has been treated, multiple EGDs for his esophageal varices admitted with chest pain (central and left), shoulder pain, SOA, nausea, hemoptysis, spitting up red blood, painful swallowing since banding of esophageal varices in [place], [place] on 09/19/20. Work- up did not show any elevated troponins or abnormal EKG changes on his last admission which was 1 day prior to this admission. There seems to be secondary gain since he is incarcerated. Patient whenever he is told that he may be leaving the institution start making up other symptoms he claims that he fell yesterday on the van transport going back [facility] and that he injured his left wrist and that he also injured his left religious nevertheless upon review of his assessment in the emergency department there is no mention of this complaints. He immediately starts asking about his platelet count which I have assured him is better than 2 days ago. I have explained to him that it is part of his liver dysfunction. He has follow-up with GI in [place] where he had his procedure done. He was seen by GI and it is well documented that the patient certainly wants food more than wanting to get better. The patient claimed to be nauseous on his last admission and please refer to the GI notes for details and when told that he was going to be on a clear liquid diet he said that he was not nauseous anymore. On his last hospital stay he was evaluated for chest pain that occurred 30 minutes prior to arrival on the left side substernal region and radiated to the left neck and left upper extremity. He also had pain in his upper abdominal area in a bandlike position. Endorses associated tingling in his left upper extremity and lower extremities. Patient also did endorsed hemoptysis as well and he was seen by multiple consultants Denies fevers, chills, dysuria or diarrhea or syncope. 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 Past paracentesis (last 1 year ago) and 24 previous banding procedures (a couple places in [place], [place], [place], at [facility], and now [place]). He was noted with seizure like activity, started on keppra. His swallowing improved after 3 days inpatient, advanced diet with no complications. Patient denies headache slurred speech he continues to complain of chest discomfort which most likely is secondary to esophageal spasms, we will discuss with GI whether he would be appropriate to send a barium swallow at this time given that he was banded recently. No further procedures are recommended by our siebel consultant we will certainly discharged the patient. We will do x-rays of both wrists and the skull rule out fractures which I doubt since the patient does not have crepitus has full range of motion in both of his wrists and has not had neurological deficits ever since the incident. He has not had hematemesis during his entire time here nor did he have hematemesis during his ER visit. He has been hemodynamically stable and does not seem to be in any distress. He continues to unfortunately ask for food even though he reports being concerned about his bleeding. Plan of care has been explained in detail all concerns addressed to the best of my abilities Patient underwent a barium swallow with no abnormal results, x rays did not show evidence of fracture. Patient presented an emetic event after bariium swallow with no evidence of blood, he is in hemodynamically stable condition for discharge, I have a suspicion he will try to come up with other ways of being transported to a hospital in the near future. Advised to follow up in [place] for his GI concerns for continuity of care. Discharge Information Condition at Discharge: Improved Follow Up: Weeks Disposition/Orders: D/C to Another Facility Scheduled Calcium Carbonate (Tums) 300 Mg Tab.chew, 500 MG PO TIDAFTMEAL for GERD, (Reported) Entered as Reported by: KELVIN ARAUJO on 09/24/20327 Furosemide (Furosemide) 20 Mg Tablet, 20 MG PO DAILY for Liver Failure, (Reported) Entered as Reported by: KELVIN ARAUJO on 09/24/20327 Isosorbide Mononitrate (Isosorbide Mononitrate Er) 30 Mg Tab.er.24h, 1 TAB PO DAILY for HTN, #30 Ref 5 (Reported) Entered as Reported by: KELVIN ARAUJO on 09/24/20327 Lactulose (Lactulose) 20 Gm/30 Ml Solution, 10 GM PO BID for Liver failure, (Reported) Entered as Reported by: KELVIN ARAUJO on 09/24/20327 Levetiracetam (Keppra) 500 Mg Tablet, 500 MG PO BID for Seizures for 90 Days, #180 Ref 3 Prescribed by: MANJULA CRUZ MD on 09/28/20 1040 Omeprazole (Omeprazole) 40 Mg Capsule.dr, 40 MG PO BID for GERD for 30 Days, #60 Prescribed by: STEVE COVARRUBIAS MD on 09/30/20 1629 Scheduled PRN Acetaminophen (Tylenol) 325 Mg Tablet, 650 MG PO PRN BID PRN for TEMP OVER 100.4F OR MILD PAIN for 30 Days, #30 Prescribed by: MANJULA CRUZ MD on 09/28/20 1040 Justicifation of Admission Dx: Justifications for Admission: Justification of Admission Dx: Yes STEVE COVARRUBIAS MD Sep 30, 2020 16:33
--- NOTE | 2020-09-30 17:57 | NUR ---
This engineering technical writer attempted to call report to the facility, no answer but message left on answering machine for a return call to me for report.
--- NOTE | 2020-09-30 18:20 | NUR ---
Patient leaves the unit by w/c and accompanied by 2 guards and this check writer, saline locks removed from left FA and right AC, bandage applied.
[2020-09-30] MEDS ORDERED: TRAM50TA PO (22:28)
== END 2020-09-30 18:35 ==
LOC: ER 18:43 → EEVIPCON 18:43 → 5 NORTH 20:33
PROVIDERS: ADMIT Internal Medicine; ATTEND Internal Medicine
DX: K92.2 Gastrointestinal hemorrhage, unspecified (principal); I10 Essential (primary) hypertension; D69.6 Thrombocytopenia, unspecified; K76.9 Liver disease, unspecified; R07.89 Other chest pain; I85.00 Esophageal varices without bleeding; E66.01 Morbid (severe) obesity due to excess calories; D61.818 Other pancytopenia; E43 Unspecified severe protein-calorie malnutrition; I25.10 Atherosclerotic heart disease of native coronary artery without angina pectoris; I85.10 Secondary esophageal varices without bleeding; K74.60 Unspecified cirrhosis of liver; K92.0 Hematemesis; B19.20 Unspecified viral hepatitis C without hepatic coma; R18.8 Other ascites; K21.9 Gastro-esophageal reflux disease without esophagitis; R56.9 Unspecified convulsions; Z86.19 Personal history of other infectious and parasitic diseases; Z87.891 Personal history of nicotine dependence; Z85.05 Personal history of malignant neoplasm of liver; Z79.899 Other long term (current) drug therapy; Z98.890 Other specified postprocedural states; Z68.42 Body mass index [BMI] 45.0-49.9, adult
CPT/HCPCS: 36415; 70250; 71045; 73110; 74220; 80053; 80307; 81001; 83605; 83690; 83735; 83880; 84145; 84484; 85025; 85610; 86850; 86900; 86901; 93005; 96361; 96365; 96366; 96367; 96368; 96375; 96376; 99285; C9113; G0378; G0480; J0696; J1953; J2270; J2354; J2405; J7030; J7060; G0379

== ENCOUNTER 2020-09-30 18:52 | Emergency (ER) | payer OTHER ==
[~2020-09-30] VITALS: Ht 157.5 cm; Wt 158.6 kg
[2020-09-30 19:47] LABS: BASO # 0.1 x10^3/uL (0.0-0.2); BASO % 2 % (0-3); EOS # 0.3 x10^3/uL (0.0-0.7); EOS % 8 % (0-3); HEMATOCRIT 40.4 % (39.0-53.0); HEMOGLOBIN 13.7 g/dL (13.0-17.5); LYMPH % 28 % (24-48); MEAN CORPUSCULAR HEMOGLOBIN 32 pg (25-35); MEAN CORPUSCULAR HGB CONC 34 g/dL (31-37); MEAN CORPUSCULAR VOLUME 93 fL (79-100); MONO # 0.3 x10^3/uL (0.0-1.1); MONO % 9 % (0-9); NEUT # 1.9 x10^3/uL (1.8-7.7); NEUT % 53 % (31-73); PLATELET COUNT 75 x10^3/uL (140-400); RED BLOOD COUNT 4.35 x10^6/uL (4.30-5.70); RED CELL DISTRIBUTION WIDTH 15.9 % (11.5-14.5); WHITE BLOOD COUNT 3.7 x10^3/uL (4.0-11.0)
[2020-09-30] MEDS ORDERED: ONDANSETRON PF 4 MG/2 ML VIAL. ONE (19:51)
[2020-09-30 19:57] LABS: CALCIUM 8.7 mg/dL (8.5-10.1); CREATININE 1.1 mg/dL (0.7-1.3); GFR 71.4; POTASSIUM 3.7 mmol/L (3.5-5.1)
[2020-09-30] MEDS ORDERED: fentaNYL PF VIAL 100 MCG/2 ML VIAL IVP ONE (20:00)
[2020-09-30 20:04] LABS: ALBUMIN 3.3 g/dL (3.4-5.0); ALBUMIN/GLOBULIN RATIO 0.8 (1.0-1.7); MAGNESIUM 2.1 mg/dL (1.8-2.4); TOTAL BILIRUBIN 2.1 mg/dL (0.2-1.0); TOTAL PROTEIN 7.6 g/dL (6.4-8.2)
[2020-09-30] MEDS ORDERED: ONDANSETRON PF 4 MG/2 ML VIAL. IVP ONE (20:15)
[2020-09-30] MEDS ORDERED: IOHEXOL 350 MG/ML 100 ML VIAL. IV ONE (21:00)
[2020-09-30] MEDS ORDERED: IOHEXOL 350 MG/ML 100 ML VIAL. ONE (21:01)
[2020-09-30] MEDS ORDERED: CONTRAST GIVEN. MC PRN (21:15)
[2020-09-30] MEDS ORDERED: HYDROcodone/APAP 5/325MG 1 TAB TABLET PO ONE (21:30)
[2020-09-30 21:50] VITALS: BP 138/89
--- NOTE | 2020-09-30 21:51 | RAD ---
Exam: CT of chest, abdomen and pelvis with contrast INDICATION: Syncope, upper abdominal pain TECHNIQUE: Sequential axial images through the chest, abdomen and pelvis obtained following the admin istration of 100 mL of Omni 350 IV contrast. Sagittal and coronal reformatted images were reconstruct ed from the axial data and reviewed. 3-D reformatted images were reconstructed from the axial data an d reviewed. Comparisons: Chest x-ray same day FINDINGS: Visualized portions of the thyroid are unremarkable. No enlarged mediastinal lymph nodes are identifi ed. Heart size is normal. No pericardial effusion. Thoracic aorta has a normal course and caliber. Pulmon marlen artery is nonenlarged. Airways are patent. No consolidation or pneumothorax. No suspicious lung nodules are identified. No pleural effusion or thickening. Diffuse hepatic steatosis. Spleen is enlarged. Pancreas, gallbladder and adrenals are unremarkable. No perinephric inflammation or hydronephrosis. No renal or ureteral calculi are identified. Bladder is distended and appears thin-walled. Prostate is not enlarged. Large and small bowel are unremarkable. Appendix is not identified. High density contrast material is noted within the right lower quadrant. No free intra-abdominal air or fluid. No obstruction. Abdominal aorta has a normal course and caliber. There is extensive collateral vasculature noted pred ominantly in the paraesophageal region. No enlarged abdominal lymph nodes are identified. No suspicious osseous lesions or acute fractures. IMPRESSION: 1. No acute process identified within the chest, abdomen and pelvis. 2. Cirrhotic morphology of the liver with secondary sequela of portal hypertension including splenom egaly and extensive paraesophageal varices. Exposure: One or more of the following in the visualized dose reduction techniques were utilized for this examination: 1. Automated exposure control 2. Adjustment of the MA and/or KV according to patient size 3. Use of iterative of reconstructive technique Electronically signed by: Juany Jaime MD (09/30/2020 9:48 PM) [facility]
[2020-09-30] MEDS ORDERED: TRAM50TA PO (22:28)
--- NOTE | 2020-09-30 22:28 | ED.ADGEN ---
Past Medical History Past Medical History: Cancer, Hypertension, Hepatitis Additional Past Medical Histor: CIRRHOSIS, ESPHAGEAL VARICES, HISTORY OF HEP C, LIVER CANCER, PE'S Past Surgical History: Other Additional Past Surgical Histo: ESPHAGEAL BANDS ON Monday09/19/20 [place] Smoking Status: Former Smoker Alcohol Use: Sober Drug Use: None General Adult EDM: Chief Complaint: ABDOMINAL PAIN HPI: HPI: Patient is a 49 year old male coming in after trying to be discharged earlier from his hospital. Patient was seen last night after he says he had vomited bright red blood. Patient states that a history of liver cirrhosis, varices, liver cancer, status post hepatitis which was treated. Patient had left and was being transported back to the shelter by guards when he said he could not breathe very well and syncopized falling over. When they came back he had to be lifted and removed from the truck. Patient complaining of abdominal pain and left- sided pain from falling from his seat. No visible signs of trauma. Patient is awake and alert. He was previously being seen in [place], we do not have any records, the guards did not bring any with him. He has been in this facility multiple times over less than a week. He was initially admitted for obvious for chest pain rule out, when he was discharged had "pseudoseizures" and then was discharged from the emergency department. Yesterday he was admitted for ops for his GI bleeding. His vital signs and hemoglobin remained unchanged and he was discharged. On his last CT that he had while in the hospital there is no noted liver lesions. Review of Systems: Review of Systems: All other systems within normal limits except for as noted in the HPI Current Medications: Current Medications Medications (Trade) Dose Ordered Sig/Gina Start Time Stop Time Status Last Admin Dose Admin Acetaminophen/ Hydrocodone Bitart (Lortab 5/325) 1 tab 1X ONCE 09/30/20 21:30 09/30/20 21:31 DC 09/30/20 21:23 1 TAB Fentanyl Citrate (Fentanyl 2ml Vial) 75 mcg 1X ONCE 09/30/20 20:00 09/30/20 20:01 DC 09/30/20 19:33 75 MCG Info (CONTRAST GIVEN -- Rx MONITORING) 1 each PRN DAILY PRN 09/30/20 21:15 10/02/20 21:14 Iohexol (Omnipaque 350 Mg/ml) 100 ml STK-MED ONCE 09/30/20 21:01 09/30/20 21:01 DC Ondansetron HCl (Zofran) 4 mg STK-MED ONCE 09/30/20 19:51 09/30/20 19:51 DC Allergies: Allergies: Allergies Coded Allergies Type Severity Reaction Last Updated Verified ibuprofen Allergy Intermediate 09/23/20 Yes ketorolac Allergy Intermediate 09/23/20 Yes Physical Exam: PE: Constitutional: Well developed, well nourished, no acute distress, non-toxic appearance, morbidly obese. [] HENT: Normocephalic, atraumatic, bilateral external ears normal, nose normal. [] Eyes: PERRLA, conjunctiva normal, no discharge. [] Neck: No rigidity, supple, no stridor. [] Cardiovascular: Regular rate and rhythm, brisk cap refill [] Lungs & Thorax: Non labored symmetric respirations, no tachypnea or respiratory distress [] Abdomen: Soft, nondistended, generalized tenderness. Skin: Warm, dry, no erythema, no rash. [] Back: Unremarkable Extremities: No deformities, range of motion grossly intact, no lower extremity edema [] Neurologic: Alert and oriented X 3, no focal deficits noted. [] Psychologic: Affect normal, judgement normal, mood normal. [] Current Patient Data: Labs: Laboratory Tests Test 09/30/20 19:00 White Blood Count 3.7 x10^3/uL (4.0-11.0) L Red Blood Count 4.35 x10^6/uL (4.30-5.70) Hemoglobin 13.7 g/dL (13.0-17.5) Hematocrit 40.4 % (39.0-53.0) Mean Corpuscular Volume 93 fL (79-100) Mean Corpuscular Hemoglobin 32 pg (25-35) Mean Corpuscular Hemoglobin Concent 34 g/dL (31-37) Red Cell Distribution Width 15.9 % (11.5-14.5) H Platelet Count 75 x10^3/uL (140-400) L Neutrophils (%) (Auto) 53 % (31-73) Lymphocytes (%) (Auto) 28 % (24-48) Monocytes (%) (Auto) 9 % (0-9) Eosinophils (%) (Auto) 8 % (0-3) H Basophils (%) (Auto) 2 % (0-3) Neutrophils # (Auto) 1.9 x10^3/uL (1.8-7.7) Lymphocytes # (Auto) 1.0 x10^3/uL (1.0-4.8) Monocytes # (Auto) 0.3 x10^3/uL (0.0-1.1) Eosinophils # (Auto) 0.3 x10^3/uL (0.0-0.7) Basophils # (Auto) 0.1 x10^3/uL (0.0-0.2) Sodium Level 137 mmol/L (136-145) Potassium Level 3.7 mmol/L (3.5-5.1) Chloride Level 103 mmol/L (98-107) Carbon Dioxide Level 23 mmol/L (21-32) Anion Gap 11 (6-14) Blood Urea Nitrogen 8 mg/dL (8-26) Creatinine 1.1 mg/dL (0.7-1.3) Estimated GFR (Cockcroft-Gault) 71.4 BUN/Creatinine Ratio 7 (6-20) Glucose Level 142 mg/dL (70-99) H Calcium Level 8.7 mg/dL (8.5-10.1) Magnesium Level 2.1 mg/dL (1.8-2.4) Total Bilirubin 2.1 mg/dL (0.2-1.0) H Aspartate Amino Transferase (AST) 46 U/L (15-37) H Alanine Aminotransferase (ALT) 31 U/L (16-63) Alkaline Phosphatase 96 U/L (46-116) Troponin I Quantitative < 0.017 ng/mL (0.000-0.055) XB-Dhb-Q-Type Natriuretic Peptide 46 pg/mL (0-124) Total Protein 7.6 g/dL (6.4-8.2) Albumin 3.3 g/dL (3.4-5.0) L Albumin/Globulin Ratio 0.8 (1.0-1.7) L Lipase 139 U/L (73-393) Laboratory Tests 09/30/20 19:00 Laboratory Tests 09/30/20 19:00 Vital Signs: Vital Signs Date Time Temp Pulse Resp B/P (MAP) Pulse Ox O2 Delivery O2 Flow Rate FiO2 09/30/20 21:50 78 20 138/89 (105) 98 Room Air 09/30/20 18:52 98.7 98.7 EKG: EKG: Normal sinus rhythm, heart rate 60 bpm, normal axis, no ST elevation or depression, no ectopy, normal intervals. [] Heart Score: Risk Factors: Risk Factors: DM, Current or recent (<one month) smoker, HTN, HLP, family hist ory of CAD, obesity. Risk Scores: Score 0 - 3: 2.5% MACE over next 6 weeks - Discharge Home Score 4 - 6: 20.3% MACE over next 6 weeks - Admit for Clinical Observation Score 7 - 10: 72.7% MACE over next 6 weeks - Early Invasive Strategies Radiology/Procedures: Radiology/Procedures: Exam: CT of chest, abdomen and pelvis with contrast INDICATION: Syncope, upper abdominal pain TECHNIQUE: Sequential axial images through the chest, abdomen and pelvis obtained following the administration of 100 mL of Omni 350 IV contrast. Sagittal and coronal reformatted images were reconstructed from the axial data and reviewed. 3-D reformatted images were reconstructed from the axial data and reviewed. Comparisons: Chest x-ray same day FINDINGS: Visualized portions of the thyroid are unremarkable. No enlarged mediastinal lymph nodes are identified. Heart size is normal. No pericardial effusion. Thoracic aorta has a normal course and caliber. Pulmonary artery is nonenlarged. Airways are patent. No consolidation or pneumothorax. No suspicious lung nodules are identified. No pleural effusion or thickening. Diffuse hepatic steatosis. Spleen is enlarged. Pancreas, gallbladder and adrenals are unremarkable. No perinephric inflammation or hydronephrosis. No renal or ureteral calculi are identified. Bladder is distended and appears thin-walled. Prostate is not enlarged. Large and small bowel are unremarkable. Appendix is not identified. High density contrast material is noted within the right lower quadrant. No free intra- abdominal air or fluid. No obstruction. Abdominal aorta has a normal course and caliber. There is extensive collateral vasculature noted predominantly in the paraesophageal region. No enlarged abdominal lymph nodes are identified. No suspicious osseous lesions or acute fractures. IMPRESSION: 1. No acute process identified within the chest, abdomen and pelvis. 2. Cirrhotic morphology of the liver with secondary sequela of portal hypertension including splenomegaly and extensive paraesophageal varices. [] Course & Med Decision Making: Course & Med Decision Making Pertinent Labs and Imaging studies reviewed. (See chart for details) Discussed with patient he is to move cautiously due to his cirrhosis, which will causing her weakness. Discussed there was no life-threatening cause of his syncope found. [] Dragon Disclaimer: Dragon Disclaimer: This electronic medical record was generated, in whole or in part, using a voice recognition dictation system. Departure Departure Impression: Primary Impression: Fall Disposition: 01 DC HOME SELF CARE/HOMELESS Condition: STABLE Referrals: NO PCP (PCP) ROHINI GASTROINTESTINAL CONS Patient Instructions: Fall Prevention and Home Safety Scripts Tramadol Hcl (TRAMADOL HCL) 50 Mg Tablet 50 MG PO Q6HRS PRN for PAIN for 3 Days, #10 TAB Prov: EDA GARSIA MD 09/30/20 EDA GARSIA MD Sep 30, 2020 22:28
== END 2020-09-30 22:44 | disposition home or self-care (01) ==
LOC: EEVIPCON 18:52 → ER 18:52
DX: G89.11 Acute pain due to trauma (principal); R10.32 Left lower quadrant pain; R07.89 Other chest pain; R11.2 Nausea with vomiting, unspecified; I10 Essential (primary) hypertension; K73.9 Chronic hepatitis, unspecified; Z85.05 Personal history of malignant neoplasm of liver; Z87.891 Personal history of nicotine dependence; Z98.890 Other specified postprocedural states; Z88.8 Allergy status to other drugs, medicaments and biological substances
CPT/HCPCS: 36415; 71275; 74174; 80053; 83690; 83735; 83880; 84484; 85025; 93005; 96374; 96375; 99285; J2405; J3010; Q9967